=== PATIENT | male | born 1985 | race Caucasian/White ===

== ENCOUNTER 2017-01-08 21:33 | Inpatient (IN) | payer OTHER ==
[~2017-01-08] VITALS: Ht 170.2 cm; Wt 109.0 kg
[~2017-01-08 21:33] MED LIST: BUPR200T2 PO; CARB1CAP8 PO; CLON0.5T3 PO; DIPH25CA65 PO; GLC/500 PO; QUET1TAB20 PO
[2017-01-08 22:57] LABS: HEMATOCRIT 41.2 % (42-52); MEAN CELL VOLUME 93.2 fL (80-100); MEAN CORPUSCULAR HEMOGLOBIN 32.4 pg (25-34); MEAN CORPUSCULAR HGB CONC 34.7 g/dl (32-36); MEAN PLATELET VOLUME 9.6 fL (7.4-10.4); PLATELET COUNT 345 K/uL (130-400); RED BLOOD COUNT 4.42 M/uL (4.7-6.1); WHITE BLOOD COUNT 11.83 K/uL (4.8-10.8)
[2017-01-08 23:17] LABS: ALT/SGPT 54 U/L (12-78); AST/SGOT 38 U/L (15-37); BLOOD UREA NITROGEN 9 mg/dl (7-18); BUN/CREATININE RATIO 9.6 (10-20); CALCIUM 8.7 mg/dl (8.5-10.1); CARBON DIOXIDE 29 mmol/L (21-32); CHLORIDE 109 mmol/L (98-107); CREATININE 0.94 mg/dl (0.60-1.40); GLUCOSE 112 mg/dl (70-99); POTASSIUM 3.4 mmol/L (3.5-5.1); SODIUM 144 mmol/L (136-145)
[2017-01-08 23:28] LABS: ALKALINE PHOSPHATASE 80 U/L (45-117); THYROID STIMULATING HORMONE 0.314 uIu/ml (0.300-4.500)
--- NOTE | 2017-01-09 00:09 | EMERGENCY ROOM VISIT NOTE ---
History Report prepared by Morales: Angelica Ambrosio Under the Supervision of: Dr. Souleymane Esqueda M.D. First contact with patient: 22:06 Chief Complaint: MENTAL HEALTH EVALUATION Stated Complaint: MENTAL BREAKDOWN History of Present Illness The patient is a 31 year old male who presents to the Emergency Room for a mental health evaluation. The patient admits to having manic episodes for the past 10 days. The patient has a history of bipolar disorder and schizophrenia. He notes that he feels out of control and has been crying a lot. The patient states that he has been taking his medications everyday. He denies suicidal or homicidal ideations, recent fevers or illness. The patient does not have a counselor. He does have a psychiatrist that he saw about a month ago and he has an appointment scheduled soon. Per the patient's sister, the patient has been having a mental breakdown for the past 10 days. She states that the patient has been "up and down" lately with manic episodes. She notes he will be calm one minute and then all over the place the next. She does not think he is suicidal but he is depressed. She states that the patient has not been taking his medications correctly. She states that he does not use drugs or alcohol. This HPI is limited due to poor cooperation. Source of History: patient, sibling History Limited By: poor cooperation Onset: 10 days CLINICAL EDUCATION ACADEMIC COORDINATOR Position: other (global) Quality: other (mental health evaluation) Modifying Factors (Relieving): other (none) Associated Symptoms: No fevers Note: The patient denies suicidal or homicidal ideations. Review of Systems See HPI for pertinent positives & negatives. A total of 10 systems reviewed and were otherwise negative. Past Medical & Surgical Medical Problems: (1) Bipolar Disorder, Unspecified (2) Diab Malaika Wo Compl, Type Ii Or Unspec Type, Not Uncntrld Surgical Problems: (1) Hx of cholecystectomy Family History Diabetes mellitus Hypertension Kidney disease Kidney stones Social History Smoking Status: Current Every Day Smoker Smokeless Tobacco Use: No Marital Status: Housing Status: lives with family Occupation Status: disabled Current/Historical Medications Scheduled Bupropion (Wellbutrin Sr), 200 MG PO DAILY Carbamazepine (Carbatrol Er), 200 MG PO HS Clonazepam (Klonopin), 0.5 MG PO HS Diphenhydramine Hcl (Benadryl Allergy), 50 MG PO HS Metformin Hcl (Glucophage), 500 MG PO DAILY Quetiapine Fumarate (Quetiapine Fumarate), 400 MG PO HS Allergies Coded Allergies: No Known Allergies (Verified , 01/08/17) Physical Exam Vital Signs Date Time Temp Pulse Resp B/P Pulse Ox O2 Delivery O2 Flow Rate FiO2 01/08/17 21:35 37.1 92 20 146/95 96 Room Air Physical Exam Constitutional: Vital signs reviewed. Eyes: Pupils are equal round reactive to light. Conjunctiva are noninjected. ENT: Pharynx is clear without erythema or exudate. Mucous membranes are moist. Neck supple without meningeal signs. Respiratory: Clear to auscultation bilaterally. Breath sounds are equal bilaterally. Cardiovascular: Regular rate and rhythm. No rubs or gallops. GI: Soft, nondistended and nontender. Bowel sounds are present. Musculoskeletal: No peripheral edema. Integumentary: No cyanosis. Neurological: The patient is awake and alert. No focal deficits. Psychiatric: Depressed affect. Medical Decision & Procedures Laboratory Results 01/08/17 22:45 01/08/17 22:45 Test 01/08/17 22:45 01/09/17 00:00 Red Blood Count 4.42 M/uL (4.7-6.1) Mean Corpuscular Volume 93.2 fL (80-100) Mean Corpuscular Hemoglobin 32.4 pg (25-34) Mean Corpuscular Hemoglobin Concent 34.7 g/dl (32-36) RDW Standard Deviation 43.5 fL (36.4-46.3) RDW Coefficient of Variation 12.7 % (11.5-14.5) Mean Platelet Volume 9.6 fL (7.4-10.4) Anion Gap 6.0 mmol/L (3-11) Est Creatinine Clear Calc Drug Dose 137.2 ml/min Estimated GFR () 123.0 Estimated GFR (Non- 106.1 BUN/Creatinine Ratio 9.6 (10-20) Calcium Level 8.7 mg/dl (8.5-10.1) Total Bilirubin 0.4 mg/dl (0.2-1) Direct Bilirubin < 0.1 mg/dl (0-0.2) Aspartate Amino Transf (AST/SGOT) 38 U/L (15-37) Alanine Aminotransferase (ALT/SGPT) 54 U/L (12-78) Alkaline Phosphatase 80 U/L (45-117) Total Protein 7.1 gm/dl (6.4-8.2) Albumin 3.9 gm/dl (3.4-5.0) Thyroid Stimulating Hormone (TSH) 0.314 uIu/ml (0.300-4.500) Salicylates Level 4.3 mg/dl (2.8-20) Acetaminophen Level 2 ug/ml (10-30) Carbamazepine (Tegretol) Level 3.1 mcg/ml (4-12) Ethyl Alcohol mg/dL < 3.0 mg/dl (0-3) Urine Opiates Screen NEG (NEG) Urine Methadone, Qualitative NEG (NEG) Urine Barbiturates NEG (NEG) Urine Phencyclidine (PCP) Level NEG (NEG) Ur Amphetamine/Methamphetamine NEG (NEG) MDMA (Ecstasy) Screen POS (NEG) Urine Benzodiazepines Screen NEG (NEG) Urine Cocaine Metabolite NEG (NEG) Urine Marijuana (THC) POS (NEG) Laboratory results as reviewed by me. ED Course 2209: The patient was evaluated in room A5. A complete history and physical exam was performed. 0139: The patient signed himself voluntarily to inpatient treatment. 0141: The patient will receive further inpatient treatment at [facility]. Medical Decision This is a 31-year-old male who presents for mental health evaluation. I did perform a limited focused review of portions of the patient's old chart on the electronic medical record. The patient has had no recent pertinent visits to this hospital. Medication Reconciliation: I attest that I have personally reviewed the patient' s current medication list. Blood Pressure Screening: Patient was found to have an elevated blood pressure and was referred to their primary doctor for recheck and further treatment. I did evaluate the patient as noted above. The patient is presenting with worsening of his bipolar disease. He also has a history of schizophrenia. He states he is taking his medications but his sister does not think he is. He is a difficult historian as he selectively answers questions. I did order and review the patient's blood work as noted in the electronic medical record. Urine tox screen is as above. 3 S. did evaluate the patient. He agreed to voluntary admission. He was admitted to [facility] for further psychiatric care. Impression Primary Impression: Thought disorder Additional Impression: Bipolar disorder Scribe Attestation The scribe's documentation has been prepared under my direct and personally reviewed by me in its entirety. I confirm that the note above accurately reflects all work, treatment, procedures, and medical decision making performed by me. Departure Information Dispostion Mental Health Acute Care Referrals Omi Noguera D.O. (PCP) Problem Qualifiers Additional Impression: Bipolar disorder Active/Remission status: currently active Current bipolar episode type: mixed Current episode severity: unspecified Qualified Codes: F31.60 - Bipolar disorder, current episode mixed, unspecified
[2017-01-09 01:15] LABS: BENZODIAZEPINE, URINE NEG (NEG); COCAINE,URINE NEG (NEG); PHENCYCLIDINE, URINE NEG (NEG)
[2017-01-09] MEDS ORDERED: NURSING VERBAL MED ORDER ONE ×3 (01:30→11:15)
[2017-01-09 01:56] VITALS: BP 146/89; PULSE 66; TEMP 37.1; BMI 38.3
[2017-01-09 02:31] VITALS: O2SAT 96
[2017-01-09] MEDS ORDERED: ALUMINUM/MAGNESIUM SUSP 30 ML UDC PO PRN (03:00)
[2017-01-09] MEDS ORDERED: SODIUM CHLORIDE 0.65% NA SOLN 45 ML (OCEAN) PRN (03:00)
[2017-01-09] MEDS ORDERED: BISMUTH SUBSALICYLATE PER ML OMNICELL CHARGE PO PRN (03:00)
[2017-01-09] MEDS ORDERED: hydrOXYzine HCL 25 MG TAB PO PRN (03:00)
[2017-01-09] MEDS ORDERED: MAGNESIUM HYDROXIDE SUSP 30 ML UDC PO PRN (03:00)
[2017-01-09 07:05] VITALS: BP 138/93; PULSE 76; TEMP 37
[2017-01-09] MEDS: NICOTINE 21 MG/24 HR TDSY EXT SCH (09:00)
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
[2017-01-09] MEDS: HALOPERIDOL 5 MG TAB PO PRN (10:46)
[2017-01-09] MEDS ORDERED: HALOPERIDOL LACTATE 5 MG/ML 1 ML VIAL IM PRN (11:00)
[2017-01-09] MEDS: QUETIAPINE FUMARATE 25 MG TAB PO PRN (11:05)
[2017-01-09] MEDS: CLONAZEPAM 0.5 MG TAB PO PRN (11:05)
[2017-01-09] MEDS: BuPROPion SR 100 MG TABCR PO SCH (11:30)
[2017-01-09] MEDS ORDERED: HALOPERIDOL 5 MG TAB PO ONE (11:30)
[2017-01-09] MEDS ORDERED: METFORMIN HCL 500 MG TAB PO SCH (12:30)
[2017-01-09] MEDS: QUETIAPINE FUMARATE 200 MG TAB PO SCH (21:35)
[2017-01-09] MEDS ORDERED: CARBAMAZEPINE 100 MG TABCR PO SCH (22:00)
[2017-01-10] MEDS: CLONAZEPAM 0.5 MG TAB PO PRN (02:57)
[2017-01-10] MEDS: hydrOXYzine HCL 25 MG TAB PO PRN (02:57)
[2017-01-10] MEDS: HALOPERIDOL 5 MG TAB PO PRN (02:57)
[2017-01-10 03:30] VITALS: BP 134/92; PULSE 86
[2017-01-10 06:23] VITALS: BP 123/80; PULSE 74; TEMP 36
[2017-01-10 08:01] LABS: CHOLESTEROL/HDL RATIO 2.4
[2017-01-10] MEDS: NICOTINE 21 MG/24 HR TDSY EXT SCH (09:52)
[2017-01-10] MEDS: BuPROPion SR 100 MG TABCR PO SCH (09:52)
[2017-01-10] MEDS ORDERED: METF-383 PO (09:59)
[2017-01-10] MEDS ORDERED: CARB200T PO (09:59)
[2017-01-10] MEDS ORDERED: ROPI0.5T15 PO (10:01)
[2017-01-10 10:42] VITALS: BP_SYST 144; BP_SYST 156; BP_DIAS 102; BP_DIAS 98; PULSE 103
--- NOTE | 2017-01-10 12:42 | Psychiatric Progress Notes ---
Progress Note Date of Service January 10, 2017. Interval History 31 yo male with schizoaffective disorder, admitted voluntarily on 01/09 with acute psychosis in the setting of not taking his meds. Chief Complaint "I guess I was psychotic.". Subjective Patient was seen & assessed interval progress reviewed with Treatment Team. The patient says that he is doing much better today. He feels safe here and is thankful for the help. 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 He admits that he has not been taking his meds, perhaps at all, for an unspecified period of time, because he was not where his meds were. He says that he is able to ask his girlfriend for help monitoring this. He denies aud/vis hallucinations and denies feeling paranoid or unsafe here. 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 At one point nursing heard a noise and found him on the floor in his room. Today he says that he hit his rt elbow, but denies hitting his head. No orthostasis noted in today's BP's. At the time I retrieved him for the interview he was found in the hallway, with his arms loaded with random object like a cup of water, a blanket, some clothes, and wearing only one shoe. When asked about this he said "I don't know." Review of Systems Constitutional: No chills, No fatigue, No fever, No problem reported, No sweats , No weakness, No weight loss ENT: No dental problems, No hearing loss, No nasal symptoms, No problem reported, No sore throat, No tinnitus, No trouble swallowing, No unusual epistaxis Respiratory: No cough, No dyspnea at rest, No dyspnea on exertion, No hemoptysis, No problem reported, No shortness of breath, No sputum, No wheezing Cardiovascular: No PND, No chest pain, No claudication, No edema, No orthopnea , No palpitations, No problem reported Abdomen: No GI bleeding, No constipation, No diarrhea, No nausea, No pain, No problem reported, No vomiting Neurologic: No balance problems, No memory loss, No numbness/tingling, No paralysis, No problem reported, No vertigo, No weakness Psychiatric: + problem reported (Disorganized thoughts) Integumentary: + problem reported (Mild abrasion to rt elbow) Sleep Information Total Hours of Sleep: 2.50 Meal Information Percent of Breakfast Consumed: 10 Percent of Lunch Consumed: 100 Percent of Dinner Consumed: 100 Mental Status Exam During interview pt is: alert and oriented, cooperative Appearance: appropriately dressed, disheveled, other (holding pillow in his hands tightly ) Eye contact is: fair, poor Motor behavior is: steady gait & station, no abnormal motor movements Speech: normal in rate, rhythm & volume Affect: blunted Mood is: other ("better") Thought process: other (disorganized, talking in metafore) Thought content: paranoid, ideas of reference, hopelessness, other (" lied about her first love...our love") Suicidal thought are: denied Homicidal thoughts are: denied Hallucinations: denies auditory, denies visual, other (appearing to respond to internal stimuli) Cognition: other (world backwards correct, concentration impaired grossly) Intelligence estimated to be: average Insight: impaired Judgement: impaired Impression Difficult day yesterday with paranoia, psychosis. We have restarted him on his OP regimen since he had not taken meds for a while. He is already starting to consolidate, and is much more reality based. Will order daily BSG for his DM. Meds have been clarifed with his pharmacy and so will correct. Will need family meeting. Will continue MNPR room for another 24 hrs due to disorganized thoughts and behaviors, but may be able to DC tomorrow. Plan (1) Schizoaffective disorder, bipolar type - q15 minute observation checks -resume outpatient psychiatric medications of Tegretol xr 200mg hs, Seroquel 400mg hs, and wellbutrin sr 200mg am, -convert klonopin to 0.5mg prn bid anxiety - add Seroquel 50mg tid prn psychosis/agitation -fasting labs ordered for 01/10 for glucose and lipid -obtain collateral from family, - attempt to arrange family meeting with as appropriate -Group and miluei therapy and 1:1 interactions with staff -Coordinate with outpt providers and arrange aftercare including psychotherapy referral 01/10 - FLP WNL with exception of triglycerides 196 and glucose 103. Will need followed as an OP - Arrange family meeting (2) Diabetes - continue outpatient Metformin reported at 500mg once a day, - monitor blood sugar 01/10 - Correct metformin to 850 mg. BIDM - Check BSG daily - monitor BP and clarify if any past/current h/o HTN and address as appropriate Visit Code E&M Code: 38388 Inventory Assets Strengths: seeking treatment, "can look people in the eye and tell when people are being honest" Needs: acute stabilization of psychiatric condition, psychotherapy referral , resumption and/or adjustment of medication Risk Factors Assessment Male: Yes : Yes /single/: No Higher / Fall in social status: No Access to guns: No Health problems: Yes Mental Health Diagnoses: Yes Previous attempt: No Family history of suicide: No Previous psychiatric stay: Yes Hopelessness: Yes Smoker: Yes Protective Factors Assessment : Yes Responsible for young children: Yes Employed: Yes Data Vital Signs Last 24 Hrs: Date Time Temp Pulse Resp B/P Pulse Ox O2 Delivery O2 Flow Rate FiO2 01/10/17 10:42 103 156/102 144/98 01/10/17 06:23 36.0 74 18 123/80 01/10/17 03:30 86 16 134/92 Meds Administered Last 24 Hrs: Meds Administered (Past 24Hrs) Medications (Trade) Dose Ordered Sig/Henry Route Start Time Stop Time Status Last Admin Dose Admin Hydroxyzine HCl (Vistaril Tab) 50 mg HSZ PRN PO 01/09/17 03:00 02/08/17 02:59 01/10/17 02:57 50 MG Nicotine (Nicoderm Cq 21MG Patch) 1 patch QAM EXT 01/09/17 09:00 02/08/17 08:59 01/10/17 09:52 1 PATCH Miscellaneous (Remove Nicoderm Patch) 1 ea QAM N/A 01/10/17 09:00 02/09/17 08:59 01/10/17 09:00 1 EA Haloperidol (Haldol Tab) 5 mg Q4H PRN PO 01/09/17 09:30 02/08/17 09:29 01/10/17 02:57 5 MG Bupropion HCl (Wellbutrin-Sr Tab) 200 mg DAILY PO 01/09/17 11:30 02/08/17 11:29 01/10/17 09:52 200 MG Carbamazepine (Tegretol-Xr) 100 mg HS PO 01/09/17 22:00 02/08/17 21:59 01/09/17 21:34 100 MG Clonazepam (Klonopin Tab) 0.5 mg BID PRN PO 01/09/17 10:15 02/08/17 10:14 01/10/17 02:57 0.5 MG Metformin HCl (Glucophage Tab) 500 mg QDL PO 01/09/17 12:30 02/08/17 12:29 01/09/17 12:46 500 MG Quetiapine Fumarate (seroQUEL TAB) 400 mg HS PO 01/09/17 22:00 02/08/17 21:59 01/09/17 21:35 400 MG Quetiapine Fumarate (seroQUEL TAB) 50 mg TID PRN PO 01/09/17 10:15 02/08/17 10:14 01/09/17 11:05 50 MG Haloperidol (Haldol Tab) 5 mg NOW ONCE PO 01/09/17 11:30 01/09/17 11:31 DC 01/09/17 11:16 5 MG Lab Results Last 24 Hrs: Last 24 Hours Test 01/10/17 07:20 Fasting Glucose 103 mg/dl Triglycerides Level 196 mg/dl Cholesterol Level 124 mg/dl HDL Cholesterol 51 mg/dl LDL Cholesterol, Calculated 34 mg/dl VLDL Cholesterol, Calculated 39 mg/dl Cholesterol/HDL Ratio 2.4 Problem Qualifiers (1) Diabetes: Diabetes mellitus type: type 2 Diabetes mellitus complication status: without complication Diabetes mellitus detention insulin use: without detention use Qualified Codes: E11.9 - Type 2 diabetes mellitus without complications
[2017-01-10] MEDS: METFORMIN HCL 850 MG TAB PO SCH (17:56)
[2017-01-10] MEDS: ROPINIROLE HCL 0.25 MG TAB PO SCH (21:28)
[2017-01-10] MEDS: QUETIAPINE FUMARATE 200 MG TAB PO SCH (21:28)
[2017-01-10] MEDS ORDERED: CARBAMAZEPINE 200 MG TABCR PO SCH (22:00)
[2017-01-10 22:52] VITALS: BP_SYST 130; BP_SYST 142; BP_SYST 148; BP_DIAS 90; BP_DIAS 92; BP_DIAS 96; PULSE 142; PULSE 144
[2017-01-10] MEDS ORDERED: NURSING VERBAL MED ORDER ONE (23:00)
[2017-01-10 23:13] VITALS: PULSE 139
[2017-01-10] MEDS ORDERED: PROPRANOLOL HCL 20 MG TAB PO ONE (23:15)
[2017-01-11] MEDS: hydrOXYzine HCL 25 MG TAB PO PRN (02:30)
[2017-01-11 06:48] VITALS: BP_SYST 108; BP_SYST 113; BP_DIAS 86; BP_DIAS 92; PULSE 78; PULSE 82; TEMP 36.9
[2017-01-11] MEDS: NICOTINE 21 MG/24 HR TDSY EXT SCH (09:28)
[2017-01-11] MEDS: METFORMIN HCL 850 MG TAB PO SCH ×2 (09:29→17:59)
[2017-01-11] MEDS: BuPROPion SR 100 MG TABCR PO SCH (09:29)
--- NOTE | 2017-01-11 10:22 | Psychiatric Progress Notes ---
Progress Note Date of Service January 11, 2017. Interval History 31 yo male with schizoaffective disorder, admitted voluntarily on 01/09 with acute psychosis in the setting of not taking his meds. Chief Complaint "Good.". Subjective Patient was seen & assessed interval progress reviewed with Treatment Team. Nursing reports that the patient had a difficult evening, was heard crying in his room saying that he thought he saw his children. He also had some odd behaviors in the day area, falling to the floor on his knees saying that he was trying to humble himself. Today he says little about this, only that he was emotional after thinking about his family. Today he denies aud/vis hallucinations. He agrees that he had a difficult evening and is willing to have an additional dose of medicine in the med afternoon. He reports good sleep and appetite and denies side effects to meds. Review of Systems Constitutional: No chills, No fatigue, No fever, No problem reported, No sweats , No weakness, No weight loss ENT: No dental problems, No hearing loss, No nasal symptoms, No problem reported, No sore throat, No tinnitus, No trouble swallowing, No unusual epistaxis Respiratory: No cough, No dyspnea at rest, No dyspnea on exertion, No hemoptysis, No problem reported, No shortness of breath, No sputum, No wheezing Cardiovascular: No PND, No chest pain, No claudication, No edema, No orthopnea , No palpitations, No problem reported Abdomen: No GI bleeding, No constipation, No diarrhea, No nausea, No pain, No problem reported, No vomiting Musculoskeletal: No calf pain, No joint pain, No muscle pain, No problem reported, No swelling Neurologic: No balance problems, No memory loss, No numbness/tingling, No paralysis, No problem reported, No vertigo, No weakness Psychiatric: + problem reported (felt "emotional" with possible visual hallucination) Integumentary: No bleeding, No color change, No itch, No new/changing skin lesions, No problem reported, No rash Sleep Information Total Hours of Sleep: 3.00 Meal Information Percent of Breakfast Consumed: 100 Percent of Lunch Consumed: 100 Percent of Dinner Consumed: 75 Mental Status Exam During interview pt is: alert and oriented, cooperative Appearance: appropriately dressed, disheveled, other (holding pillow in his hands tightly ) Eye contact is: good (but staring) Motor behavior is: steady gait & station, no abnormal motor movements Speech: normal in rate, rhythm & volume Affect: blunted Mood is: other ("good") Thought process: goal directed (but at one point was staring without answering the question as if responding to internal stimuli) Thought content: reality based without delusions Suicidal thought are: denied Homicidal thoughts are: denied Hallucinations: denies auditory, denies visual, other (appearing to respond to internal stimuli) Cognition: other (world backwards correct, concentration impaired grossly) Intelligence estimated to be: average Insight: impaired Judgement: impaired Impression Some progress in that he was improved on days yesterday, but deteriorated on evenings. Will add Seroquel 100 mg. at 1400 to target the evening decompensation. Still need a family meeting with his girlfriend with whom he lives. had an episode of tachycardia last evening, but HR WNL this AM. Had a one time dose on propranolol. Tachy may have been influenced by his distress. Will monitor Plan (1) Schizoaffective disorder, bipolar type - q15 minute observation checks -resume outpatient psychiatric medications of Tegretol xr 200mg hs, Seroquel 400mg hs, and wellbutrin sr 200mg am, -convert klonopin to 0.5mg prn bid anxiety - add Seroquel 50mg tid prn psychosis/agitation -fasting labs ordered for 01/10 for glucose and lipid -obtain collateral from family, - attempt to arrange family meeting with as appropriate -Group and miluei therapy and 1:1 interactions with staff -Coordinate with outpt providers and arrange aftercare including psychotherapy referral 01/10 - FLP WNL with exception of triglycerides 196 and glucose 103. Will need followed as an OP - Arrange family meeting 01/11 - Add seroquel 100 mg. 1400 - Arrange family meeting (2) Diabetes - continue outpatient Metformin reported at 500mg once a day, - monitor blood sugar 01/10 - Correct metformin to 850 mg. BIDM - Check BSG daily - monitor BP and clarify if any past/current h/o HTN and address as appropriate Discharge / Aftercare Planning Primary Care Physician: Name: Dr Mustafa Therapist: Name: jennie Electrical Controls Engineer: Name: jennie Visit Code E&M Code: 36174 Inventory Assets Strengths: seeking treatment, "can look people in the eye and tell when people are being honest" Needs: acute stabilization of psychiatric condition, psychotherapy referral , resumption and/or adjustment of medication Risk Factors Assessment Male: Yes : Yes /single/: No Higher / Fall in social status: No Access to guns: No Health problems: Yes Mental Health Diagnoses: Yes Previous attempt: No Family history of suicide: No Previous psychiatric stay: Yes Hopelessness: Yes Smoker: Yes Protective Factors Assessment : Yes Responsible for young children: Yes Employed: Yes Data Vital Signs Last 24 Hrs: Date Time Temp Pulse Resp B/P Pulse Ox O2 Delivery O2 Flow Rate FiO2 01/11/17 06:48 36.9 82 18 113/86 78 108/92 01/10/17 23:13 139 01/10/17 22:52 142 130/90 144 148/92 142 142/96 01/10/17 10:42 103 156/102 144/98 Meds Administered Last 24 Hrs: Meds Administered (Past 24Hrs) Medications (Trade) Dose Ordered Sig/Henry Route Start Time Stop Time Status Last Admin Dose Admin Miscellaneous (Remove Nicoderm Patch) 1 ea QAM N/A 01/10/17 09:00 02/09/17 08:59 01/10/17 09:00 1 EA Bupropion HCl (Wellbutrin-Sr Tab) 200 mg DAILY PO 01/09/17 11:30 02/08/17 11:29 01/11/17 09:29 200 MG Carbamazepine (Tegretol-Xr) 100 mg HS PO 01/09/17 22:00 01/10/17 12:22 DC 01/09/17 21:34 100 MG Clonazepam (Klonopin Tab) 0.5 mg BID PRN PO 01/09/17 10:15 02/08/17 10:14 01/10/17 02:57 0.5 MG Metformin HCl (Glucophage Tab) 500 mg QDL PO 01/09/17 12:30 01/10/17 12:22 DC 01/09/17 12:46 500 MG Quetiapine Fumarate (seroQUEL TAB) 400 mg HS PO 01/09/17 22:00 02/08/17 21:59 01/10/17 21:28 400 MG Quetiapine Fumarate (seroQUEL TAB) 50 mg TID PRN PO 01/09/17 10:15 02/08/17 10:14 01/09/17 11:05 50 MG Haloperidol (Haldol Tab) 5 mg NOW ONCE PO 01/09/17 11:30 01/09/17 11:31 DC 01/09/17 11:16 5 MG Metformin HCl (Glucophage Tab) 850 mg BIDM PO 01/10/17 17:45 02/09/17 17:44 01/11/17 09:29 850 MG Carbamazepine (Tegretol-Xr (Do Not Crush)) 200 mg HS PO 01/10/17 22:00 01/11/17 08:23 DC 01/10/17 21:28 200 MG Ropinirole HCl (Requip Tab) 0.5 mg HS PO 01/10/17 22:00 02/09/17 21:59 01/10/17 21:28 0.5 MG Propranolol HCl (Inderal Tab) 20 mg TODAY@2315 ONCE PO 01/10/17 23:15 01/10/17 23:16 DC 01/10/17 23:14 20 MG Lab Results Last 24 Hrs: Last 24 Hours Test 01/11/17 08:12 Bedside Glucose 135 mg/dl Problem Qualifiers (1) Diabetes: Diabetes mellitus type: type 2 Diabetes mellitus complication status: without complication Diabetes mellitus senior living insulin use: without senior living use Qualified Codes: E11.9 - Type 2 diabetes mellitus without complications
[2017-01-11] MEDS: HALOPERIDOL 5 MG TAB PO PRN (13:35)
[2017-01-11] MEDS: CLONAZEPAM 0.5 MG TAB PO PRN (13:35)
[2017-01-11] MEDS: ROPINIROLE HCL 0.25 MG TAB PO SCH (21:23)
[2017-01-11] MEDS: QUETIAPINE FUMARATE 200 MG TAB PO SCH (21:23)
[2017-01-11] MEDS: CARBAMAZEPINE 200 MG TAB PO SCH (21:23)
[2017-01-11 21:49] VITALS: BP_SYST 131; BP_SYST 136; BP_DIAS 90; BP_DIAS 92; PULSE 103; PULSE 96
[2017-01-12 06:38] VITALS: BP_SYST 124; BP_SYST 128; BP_SYST 134; BP_DIAS 88; BP_DIAS 89; BP_DIAS 92; PULSE 102; PULSE 108; PULSE 96; TEMP 36.8
--- NOTE | 2017-01-12 08:23 | Psychiatric Progress Notes ---
Progress Note Date of Service Jan 12, 2017. Interval History 31 yo male with schizoaffective disorder, admitted voluntarily on 01/09 with acute psychosis in the setting of not taking his meds. Chief Complaint "Fantastic". Subjective Patient was seen & assessed interval progress reviewed with nursing. Staff report he continues to isolate, is withdrawn, refusing a family meeting, is suspicious of staff, and appears to be responding to internal stimuli, talking and laughing to himself. He appears thought blocked, guarded, and frequently stares. He is not sleeping well, 3-4 hours in the past couple nights. He is taking medications willingly. He was overheard talking in the day room, stating that he had been here for 2 days and "I'm not doing it another day. I don't know who I can trust." He attends groups, but sometimes leaves early if overstimulated. Today, he was seen in his room, along with his sister, who is visiting. He declined an offer to meet with him individually, stating she could remain during the interview. He states that he is "fantastic," because his sister is here, but that prior to that, he was "like crap, felt like my brain was getting picked." When asked to explain this further, he says "I'd say a story and they already say it." He cannot further clarify this, and at times just stared when asked questions without responding. He states that he is having difficulty focusing his thoughts, and is very distracted and bothered by noises, saying "like that!" in response to a muffled sound from outside the unit. He states he cannot tolerate any kind of noise or stimulation, so frequently retreats to his room, as he likes to be alone where it is quiet. He denies that he is experiencing hallucinations or feels paranoid, but appears paranoid, thought blocked, and responding to internal stimuli, with eyes darting around the room. He denies SI and HI. He admits to racing thoughts and anxiety, which he attributes to being in the hospital. Sleep has been restless, and appetite good. He denies side effects to medications. He states that he came here because "wanted to get a break, reevaluate, recenter myself." He refused to answer questions about stresses at home, directing me to ask his sister. His sister said she knows that he and his girlfriend "fight a lot, about little things," and she is concerned that he is not yet ready to go back to work. She has already contacted his employer and informed them he will not be in this week, but he thinks he is fine and ready to return to work now. He states that his girlfriend has not visited at all during his time here, due to her busy work schedule. It was advised that at the very least, she talked to him on the phone to help us determine how close he is to baseline, and that a family meeting be scheduled, even if it has to be by phone. He voiced agreement. Sleep Information Total Hours of Sleep: 3.75 Meal Information Percent of Breakfast Consumed: 100 Percent of Lunch Consumed: 100 Percent of Dinner Consumed: 100 Mental Status Exam During interview pt is: alert and oriented, cooperative Appearance: appropriately dressed, disheveled, other Eye contact is: good (staring ) Motor behavior is: steady gait & station, psychomotor agitation (restlessness, walking around the room from chair to bed to standing) Speech: other (minimal, monotone) Affect: flat (suspicious), irritable, other (incongruent with stated mood) Mood is: other ("fantastic" - because sister here, but prior to that "like crap ") Thought process: blocking (doesn't respond to some questions), other (short answers, at times does not make sense) Thought content: paranoid (suspicious of staff) Suicidal thought are: denied Homicidal thoughts are: denied Hallucinations: denies auditory, denies visual, other (appearing to be respond to internal stimuli) Cognition: other (impaired) Intelligence estimated to be: average Insight: impaired Judgement: impaired Impression Some progress since admission, as calmer, but remains psychotic, thought blocked , appears to be responding to internal stimuli. Cannot tolerate any noise or stimulation, so not actively participating in programming and spending a lot of time in room. Quetiapine has been increased with addition of 100 mg. at 1400 to target evening decompensation. Still need a family meeting with his girlfriend with whom he lives. She has not even visited yet, and it will be important to assess his interactions with her and her thoughts on how close he is to baseline/ability to function at home in this state. He feels he is at baseline, but this is questionable. Continues to have episodes of tachycardia and requires ongoing hospitalization for monitoring of psychosis and HTN. Plan (1) Schizoaffective disorder, bipolar type - q15 minute observation checks - resume outpatient psychiatric medications of Tegretol XR 200mg hs, Seroquel 400mg hs, and wellbutrin sr 200mg am, - convert klonopin to 0.5mg prn bid anxiety - add Seroquel 50mg tid prn psychosis/agitation - fasting labs ordered for 01/10 for glucose and lipid - obtain collateral from family, - attempt to arrange family meeting with as appropriate - Group and milieu therapy and 1:1 interactions with staff - Coordinate with outpt providers and arrange aftercare including psychotherapy referral 01/10 - FLP WNL with exception of triglycerides 196 and glucose 103. Will need followed as an OP - Arrange family meeting 01/11 - Add seroquel 100 mg. 1400 - Arrange family meeting 01/12 - Recommend girlfriend visited and spend some time with him so that she can help us assess for improvement and how close he is to baseline. They would also benefit from a family meeting. - Continue quetiapine. He has only received one 50 mg as needed dose on . - His sister stated she does not think he will be ready to go back to work at the time of discharge, but he is stating he wants to return as soon as possible. This will require further assessment at the time of discharge, and he will need a return to work note. - Follow-up with Dr. Dean on 01/24/17. (2) Diabetes - continue outpatient Metformin reported at 500mg once a day, - monitor blood sugar 01/10 - Correct metformin to 850 mg. BIDM - Check BSG daily - monitor BP and clarify if any past/current h/o HTN and address as appropriate Discharge / Aftercare Planning Primary Care Physician: Name: Dr Mustafa Psychiatrist: Name: [facility] - Dr Foote Phone Number: [phone] Therapist: Name: jennie Stapler Coil Unit: Name: jennie Inventory Assets Strengths: seeking treatment, "can look people in the eye and tell when people are being honest" Needs: acute stabilization of psychiatric condition, psychotherapy referral , resumption and/or adjustment of medication Risk Factors Assessment Male: Yes : Yes /single/: No Higher / Fall in social status: No Access to guns: No Health problems: Yes Mental Health Diagnoses: Yes Previous attempt: No Family history of suicide: No Previous psychiatric stay: Yes Hopelessness: Yes Smoker: Yes Protective Factors Assessment : Yes Responsible for young children: Yes Employed: Yes Data Vital Signs Last 24 Hrs: Date Time Temp Pulse Resp B/P (MAP) Pulse Ox O2 Delivery O2 Flow Rate FiO2 01/12/17 06:38 36.8 102 18 134/88 108 128/92 96 124/89 01/11/17 21:49 96 136/92 103 131/90 Meds Administered Last 24 Hrs: Meds Administered (Past 24Hrs) Medications (Trade) Dose Ordered Sig/Henry Route Start Time Stop Time Status Last Admin Dose Admin Miscellaneous (Remove Nicoderm Patch) 1 ea QAM N/A 01/10/17 09:00 02/09/17 08:59 01/10/17 09:00 1 EA Metformin HCl (Glucophage Tab) 850 mg BIDM PO 01/10/17 17:45 02/09/17 17:44 01/11/17 17:59 850 MG Carbamazepine (Tegretol-Xr (Do Not Crush)) 200 mg HS PO 01/10/17 22:00 01/11/17 08:23 DC 01/10/17 21:28 200 MG Ropinirole HCl (Requip Tab) 0.5 mg HS PO 01/10/17 22:00 02/09/17 21:59 01/11/17 21:23 0.5 MG Propranolol HCl (Inderal Tab) 20 mg TODAY@2315 ONCE PO 01/10/17 23:15 01/10/17 23:16 DC 01/10/17 23:14 20 MG Carbamazepine (Tegretol Tab) 200 mg HS PO 01/11/17 22:00 02/10/17 21:59 01/11/17 21:23 200 MG Lab Results Last 24 Hrs: Last 24 Hours Test 01/12/17 07:50 Bedside Glucose 181 mg/dl Problem Qualifiers (1) Diabetes: Diabetes mellitus type: type 2 Diabetes mellitus complication status: without complication Diabetes mellitus mcc insulin use: without intermediate manager use Qualified Codes: E11.9 - Type 2 diabetes mellitus without complications
[2017-01-12] MEDS: METFORMIN HCL 850 MG TAB PO SCH ×2 (09:12→17:57)
[2017-01-12] MEDS: BuPROPion SR 100 MG TABCR PO SCH (09:12)
[2017-01-12] MEDS: NICOTINE 21 MG/24 HR TDSY EXT SCH (09:13)
[2017-01-12] MEDS: ROPINIROLE HCL 0.25 MG TAB PO SCH (21:22)
[2017-01-12] MEDS: CARBAMAZEPINE 200 MG TAB PO SCH (21:23)
[2017-01-12] MEDS: QUETIAPINE FUMARATE 200 MG TAB PO SCH (21:23)
[2017-01-13] MEDS: BuPROPion SR 100 MG TABCR PO SCH (07:25)
[2017-01-13] MEDS: HALOPERIDOL 5 MG TAB PO PRN ×2 (07:25→19:58)
[2017-01-13 08:17] VITALS: BP_SYST 153; BP_SYST 160; BP_SYST 168; BP_DIAS 107; BP_DIAS 118; PULSE 102; PULSE 106; PULSE 95; TEMP 36.9
[2017-01-13] MEDS: METFORMIN HCL 850 MG TAB PO SCH ×2 (09:37→17:30)
[2017-01-13] MEDS: NICOTINE 21 MG/24 HR TDSY EXT SCH (09:37)
[2017-01-13] MEDS ORDERED: HALOPERIDOL 5 MG TAB ONE (09:53)
[2017-01-13] MEDS ORDERED: NURSING VERBAL MED ORDER ONE (10:00)
[2017-01-13] MEDS: CLONAZEPAM 0.5 MG TAB PO PRN ×2 (10:05→19:58)
--- NOTE | 2017-01-13 13:13 | Psychiatric Progress Notes ---
Progress Note Date of Service Jan 13, 2017. Interval History 31 yo male with schizoaffective disorder, admitted voluntarily on 01/09 with acute psychosis in the setting of not taking his meds. Chief Complaint "I'm too happy right now". Subjective Patient was seen & assessed interval progress reviewed with Treatment Team. Some decompensation yesterday, outbursts of sobbing with no clear provocation, covering his face with hoodie in groups when seemingly overstimulated, sitting by door yesterday pm on floor/rocking (not attempting to elope). He has had to be redirected for being a peer's room. Doesn't accept prns but Haldol is helpful when he will take it. He has been observed at times spitting his meds into the sink. Disorganized behaviors include meaningless reorganization of his room, making repetitive statements like "facts on facts on facts" and even putting stickers on his face. Staff feel it appears as if responding to internal stimuli. Will stare and appear paranoid in their interactions. Review of Systems Psych: denies symptoms other than stated above Constitutional: denied Cardiovascular: denied GI: denied Neurologic: denied Remainder of 10 body systems also reviewed and denied other than noted above. Sleep Information Total Hours of Sleep: 2.75 Meal Information Percent of Breakfast Consumed: 100 Percent of Lunch Consumed: 70 Percent of Dinner Consumed: 100 Mental Status Exam During interview pt is: alert and oriented, cooperative Appearance: appropriately dressed Eye contact is: poor Motor behavior is: steady gait & station, psychomotor agitation (restlessness, walking around the room repetitively organizing his objects. ) Speech: other (minimal, monotone) Affect: elated Mood is: other (expansive) Thought process: blocking (doesn't respond to some questions), flight of ideas Thought content: paranoid Suicidal thought are: denied Homicidal thoughts are: denied Hallucinations: denies auditory, denies visual Cognition: other (impaired) Intelligence estimated to be: average Insight: impaired Judgement: impaired Impression Some progress since admission, as calmer, but remains psychotic, thought blocked , appears to be responding to internal stimuli. Cannot tolerate any noise or stimulation, so not actively participating in programming and spending a lot of time in room. Quetiapine has been increased with addition of 100 mg. at 1400 to target evening decompensation. Still need a family meeting with his girlfriend with whom he lives. Continues to have episodes of tachycardia and requires ongoing hospitalization for monitoring of psychosis and HTN. Plan (1) Schizoaffective disorder, bipolar type - q15 minute observation checks - resume outpatient psychiatric medications of Tegretol XR 200mg hs, Seroquel 400mg hs, and wellbutrin sr 200mg am, - convert klonopin to 0.5mg prn bid anxiety - add Seroquel 50mg tid prn psychosis/agitation - fasting labs ordered for 01/10 for glucose and lipid - obtain collateral from family, - attempt to arrange family meeting with as appropriate - Group and milieu therapy and 1:1 interactions with staff - Coordinate with outpt providers and arrange aftercare including psychotherapy referral 01/10 - FLP WNL with exception of triglycerides 196 and glucose 103. Will need followed as an OP - Arrange family meeting 01/11 - Add seroquel 100 mg. 1400 - Arrange family meeting 01/12 - Recommend girlfriend visited and spend some time with him so that she can help us assess for improvement and how close he is to baseline. They would also benefit from a family meeting. - Continue quetiapine. He has only received one 50 mg as needed dose on . - His sister stated she does not think he will be ready to go back to work at the time of discharge, but he is stating he wants to return as soon as possible. This will require further assessment at the time of discharge, and he will need a return to work note. - Follow-up with Dr. Dean on 01/24/17. / -as patient not very accepting of prns, will add Haldol standing order BID for additional coverage at least until he is therapeutic on Tegretol. Appeared hypomanic in my interactions with him today. Can have Tegretol level in am with repeat CBC and lytes. If remains this labile may need to hold Wellbutrin until more stable. Could titrate Seroquel further, I'm unsure if related to his tachy--he is quite active due to hypomania. Will continue to monitor for evidence of withdrawal in differential--currently doesn't appear to have sweating, tremor, etc. (2) Diabetes - continue outpatient Metformin reported at 500mg once a day, - monitor blood sugar 01/10 - Correct metformin to 850 mg. BIDM - Check BSG daily - monitor BP and clarify if any past/current h/o HTN and address as appropriate Discharge / Aftercare Planning Primary Care Physician: Name: Dr Mustafa Psychiatrist: Name: [facility] - Dr Foote Phone Number: [phone] Date of Appointment: Jan 24, 2017 Time of Appointment: 930 Therapist: Name: jennie Big Data Lead: Name: jennie Visit Code E&M Code: 31466 Inventory Assets Strengths: seeking treatment, "can look people in the eye and tell when people are being honest" Needs: acute stabilization of psychiatric condition, psychotherapy referral , resumption and/or adjustment of medication Risk Factors Assessment Male: Yes : Yes /single/: No Higher / Fall in social status: No Access to guns: No Health problems: Yes Mental Health Diagnoses: Yes Previous attempt: No Family history of suicide: No Previous psychiatric stay: Yes Hopelessness: Yes Smoker: Yes Protective Factors Assessment : Yes Responsible for young children: Yes Employed: Yes Data Vital Signs Last 24 Hrs: Date Time Temp Pulse Resp B/P (MAP) Pulse Ox O2 Delivery O2 Flow Rate FiO2 01/13/17 08:17 36.9 102 20 168/118 95 160/107 106 153/107 Meds Administered Last 24 Hrs: Meds Administered (Past 24Hrs) Medications (Trade) Dose Ordered Sig/Henry Route Start Time Stop Time Status Last Admin Dose Admin Carbamazepine (Tegretol Tab) 200 mg HS PO 01/11/17 22:00 02/10/17 21:59 01/12/17 21:23 200 MG Haloperidol (Haldol Tab) 10 mg STK-MED ONCE .ROUTE 01/13/17 09:53 01/13/17 09:54 DC 01/13/17 10:05 10 MG Lab Results Last 24 Hrs: Last 24 Hours Test 01/13/17 07:32 Bedside Glucose 135 mg/dl Problem Qualifiers (1) Diabetes: Diabetes mellitus type: type 2 Diabetes mellitus complication status: without complication Diabetes mellitus tube making machine operator insulin use: without mcc use Qualified Codes: E11.9 - Type 2 diabetes mellitus without complications
[2017-01-13] MEDS: HALOPERIDOL 5 MG TAB PO SCH (17:09)
[2017-01-13 19:42] VITALS: BP 136/85; PULSE 86
[2017-01-13] MEDS: QUETIAPINE FUMARATE 200 MG TAB PO SCH (20:15)
[2017-01-13] MEDS: ROPINIROLE HCL 0.25 MG TAB PO SCH (20:15)
[2017-01-13] MEDS: CARBAMAZEPINE 200 MG TAB PO SCH (20:15)
[2017-01-13] MEDS: CLONIDINE HCL 0.1 MG TAB PO SCH (20:18)
[2017-01-13] MEDS: QUETIAPINE FUMARATE 25 MG TAB PO PRN (23:10)
[2017-01-13] MEDS: hydrOXYzine HCL 25 MG TAB PO PRN (23:10)
[2017-01-14 06:40] VITALS: BP_SYST 127; BP_SYST 130; BP_DIAS 87; PULSE 102; PULSE 80; TEMP 36.7
[2017-01-14] MEDS: NICOTINE 21 MG/24 HR TDSY EXT SCH (07:56)
[2017-01-14] MEDS: CLONIDINE HCL 0.1 MG TAB PO SCH ×2 (07:57→22:30)
[2017-01-14] MEDS: BuPROPion SR 100 MG TABCR PO SCH (07:58)
[2017-01-14] MEDS: HALOPERIDOL 5 MG TAB PO SCH ×2 (07:58→17:15)
[2017-01-14] MEDS: CLONAZEPAM 0.5 MG TAB PO PRN ×2 (07:59→15:47)
[2017-01-14] MEDS: BENZTROPINE MESYLATE 1 MG TAB PO PRN (07:59)
[2017-01-14 08:26] LABS: BASO % 0.4 %; BASO ABS # 0.04 K/uL (0-0.2); COMPLETE YES; EOS % 0.8 %; HEMATOCRIT 43.6 % (42-52); IG% 0.2 %; LYMPH % 32.7 %; LYMPH ABS # 3.22 K/uL (1.2-3.4); MEAN CELL VOLUME 92.8 fL (80-100); MEAN CORPUSCULAR HEMOGLOBIN 32.6 pg (25-34); MEAN CORPUSCULAR HGB CONC 35.1 g/dl (32-36); MEAN PLATELET VOLUME 9.6 fL (7.4-10.4); MONO % 9.7 %; NEUT % 56.2 %; PLATELET COUNT 341 K/uL (130-400); WHITE BLOOD COUNT 9.85 K/uL (4.8-10.8)
[2017-01-14] MEDS: METFORMIN HCL 850 MG TAB PO SCH ×2 (08:40→17:15)
[2017-01-14] MEDS: QUETIAPINE FUMARATE 25 MG TAB PO PRN ×2 (10:27→15:47)
--- NOTE | 2017-01-14 13:00 | Psychiatric Progress Notes ---
Progress Note Date of Service Jan 14, 2017. Interval History 31 yo male with schizoaffective disorder, admitted voluntarily on 01/09 with acute psychosis in the setting of not taking his meds. Chief Complaint "there was shit in my bag, it wasn't even my clothes in there, I think housekeeping did it". Subjective Patient was seen & assessed interval progress reviewed with nursing. only slept 4 hours, did check the door at least on one occasion. Described visions of his children on the unit last pm then tearful and fell to his knees. Only received negative reinforcement from his girlfriend during a phone call. States noises here bother heam. Multiple prns yesterday, total 25 mg Haldol in addition to Klonopina, Seroquel and Vistaril prns. This am very focussed on feces being found in his belongings, staff do confirm that was BM in his pants, likely soiled self and too disorganized to remember. He has since washed his hand repeatedly and believes that it is contaminated and that others are talking about him. Review of Systems Psych: denies symptoms other than stated above Constitutional: denied Cardiovascular: denied GI: denied Neurologic: denied Remainder of 10 body systems also reviewed and denied other than noted above. Sleep Information Total Hours of Sleep: 4.50 Meal Information Percent of Breakfast Consumed: 100 Percent of Lunch Consumed: 100 Percent of Dinner Consumed: 100 Mental Status Exam During interview pt is: alert and oriented, guarded Appearance: appropriately dressed Eye contact is: fair Motor behavior is: steady gait & station, psychomotor agitation Speech: is pressured Affect: labile Mood is: dysphoric Thought process: blocking (doesn't respond to some questions), flight of ideas , perseveration Thought content: paranoid, delusions, ideas of reference Suicidal thought are: denied Homicidal thoughts are: denied Hallucinations: denies auditory, denies visual Cognition: other (impaired) Intelligence estimated to be: average Insight: impaired Judgement: impaired Impression Some progress since admission, as calmer, but remains psychotic, thought blocked , appears to be responding to internal stimuli. Cannot tolerate any noise or stimulation, so not actively participating in programming and spending a lot of time in room. Quetiapine has been increased with addition of 100 mg. at 1400 to target evening decompensation. Still need a family meeting with his girlfriend with whom he lives. Continues to have episodes of tachycardia and requires ongoing hospitalization for monitoring of psychosis and HTN. Plan (1) Schizoaffective disorder, bipolar type - q15 minute observation checks - resume outpatient psychiatric medications of Tegretol XR 200mg hs, Seroquel 400mg hs, and wellbutrin sr 200mg am, - convert klonopin to 0.5mg prn bid anxiety - add Seroquel 50mg tid prn psychosis/agitation - fasting labs ordered for 01/10 for glucose and lipid - obtain collateral from family, - attempt to arrange family meeting with as appropriate - Group and milieu therapy and 1:1 interactions with staff - Coordinate with outpt providers and arrange aftercare including psychotherapy referral 01/10 - FLP WNL with exception of triglycerides 196 and glucose 103. Will need followed as an OP - Arrange family meeting 01/11 - Add seroquel 100 mg. 1400 - Arrange family meeting 01/12 - Recommend girlfriend visited and spend some time with him so that she can help us assess for improvement and how close he is to baseline. They would also benefit from a family meeting. - Continue quetiapine. He has only received one 50 mg as needed dose on . - His sister stated she does not think he will be ready to go back to work at the time of discharge, but he is stating he wants to return as soon as possible. This will require further assessment at the time of discharge, and he will need a return to work note. - Follow-up with Dr. Dean on 01/24/17. 01/13 -as patient not very accepting of prns, will add Haldol standing order BID for additional coverage at least until he is therapeutic on Tegretol. Appeared hypomanic in my interactions with him today. Can have Tegretol level in am with repeat CBC and lytes. If remains this labile may need to hold Wellbutrin until more stable. Could titrate Seroquel further, I'm unsure if related to his tachy--he is quite active due to hypomania. Will continue to monitor for evidence of withdrawal in differential--currently doesn't appear to have sweating, tremor, etc. 01/14 -tegretol level only 4, will increase Tegretol to BID and repeat level in 5 days. will d/c Wellbutrin for now as very labile mood (hypomania alternating with depression) not sleeping well and dose have dopaminergic effects (active hannah and paranoia). Will increase Haldol standing order this afternoon. Directed staff to not leaving cleaning personal alone with patient in his room due to safety/paranoia. Remains on MNPR. (2) Diabetes - continue outpatient Metformin reported at 500mg once a day, - monitor blood sugar 01/10 - Correct metformin to 850 mg. BIDM - Check BSG daily - monitor BP and clarify if any past/current h/o HTN and address as appropriate Discharge / Aftercare Planning Primary Care Physician: Name: Dr Mustafa Psychiatrist: Name: [facility] [place] - Dr Foote Phone Number: [phone] Date of Appointment: Jan 24, 2017 Time of Appointment: 930 Therapist: Name: jennie Spiritual Care Coordinator: Name: jennie Antipsychotic Medications The patient is continuing 2 antipsychotics due to: a history of a minimum of 3 failed trials of monotherapy (LIST): see h&P Visit Code E&M Code: 25836 Inventory Assets Strengths: seeking treatment, "can look people in the eye and tell when people are being honest" Needs: acute stabilization of psychiatric condition, psychotherapy referral , resumption and/or adjustment of medication Risk Factors Assessment Male: Yes : Yes /single/: No Higher / Fall in social status: No Access to guns: No Health problems: Yes Mental Health Diagnoses: Yes Previous attempt: No Family history of suicide: No Previous psychiatric stay: Yes Hopelessness: Yes Smoker: Yes Protective Factors Assessment : Yes Responsible for young children: Yes Employed: Yes Data Vital Signs Last 24 Hrs: Date Time Temp Pulse Resp B/P (MAP) Pulse Ox O2 Delivery O2 Flow Rate FiO2 01/14/17 06:40 36.7 80 16 127/87 102 130/87 01/13/17 19:42 86 16 136/85 Meds Administered Last 24 Hrs: Meds Administered (Past 24Hrs) Medications (Trade) Dose Ordered Sig/Henry Route Start Time Stop Time Status Last Admin Dose Admin Haloperidol (Haldol Tab) 10 mg STK-MED ONCE .ROUTE 01/13/17 09:53 01/13/17 09:54 DC 01/13/17 10:05 10 MG Haloperidol (Haldol Tab) 5 mg BID17 PO 01/13/17 17:00 02/12/17 16:59 01/14/17 07:58 5 MG Clonidine HCl (Catapres Tab) 0.05 mg BID PO 01/13/17 22:00 02/12/17 21:59 01/14/17 07:57 0.05 MG Lab Results Last 24 Hrs: Last 24 Hours Test 01/14/17 08:03 01/14/17 08:05 Bedside Glucose 166 mg/dl White Blood Count 9.85 K/uL Red Blood Count 4.70 M/uL Hemoglobin 15.3 g/dL Hematocrit 43.6 % Mean Corpuscular Volume 92.8 fL Mean Corpuscular Hemoglobin 32.6 pg Mean Corpuscular Hemoglobin Concent 35.1 g/dl Platelet Count 341 K/uL Mean Platelet Volume 9.6 fL Neutrophils (%) (Auto) 56.2 % Lymphocytes (%) (Auto) 32.7 % Monocytes (%) (Auto) 9.7 % Eosinophils (%) (Auto) 0.8 % Basophils (%) (Auto) 0.4 % Neutrophils # (Auto) 5.53 K/uL Lymphocytes # (Auto) 3.22 K/uL Monocytes # (Auto) 0.96 K/uL Eosinophils # (Auto) 0.08 K/uL Basophils # (Auto) 0.04 K/uL RDW Standard Deviation 43.4 fL RDW Coefficient of Variation 12.6 % Immature Granulocyte % (Auto) 0.2 % Immature Granulocyte # (Auto) 0.02 K/uL Sodium Level 139 mmol/L Potassium Level 4.0 mmol/L Chloride Level 105 mmol/L Carbon Dioxide Level 27 mmol/L Anion Gap 7.0 mmol/L Carbamazepine (Tegretol) Level 4.6 mcg/ml Problem Qualifiers (1) Diabetes: Diabetes mellitus type: type 2 Diabetes mellitus complication status: without complication Diabetes mellitus exterminator helper insulin use: without exterminator helper use Qualified Codes: E11.9 - Type 2 diabetes mellitus without complications
[2017-01-14] MEDS: CARBAMAZEPINE 200 MG TAB PO SCH ×2 (14:54→22:31)
[2017-01-14 22:18] VITALS: BP 124/85; PULSE 91
[2017-01-14] MEDS: ROPINIROLE HCL 0.25 MG TAB PO SCH (22:30)
[2017-01-14] MEDS: QUETIAPINE FUMARATE 200 MG TAB PO SCH (22:30)
[2017-01-15 06:42] VITALS: BP_SYST 128; BP_SYST 131; BP_DIAS 86; PULSE 101; PULSE 87; TEMP 36.5
[2017-01-15 06:44] VITALS: Ht 170.2 cm; Wt 109.0 kg
[2017-01-15] MEDS: NICOTINE 21 MG/24 HR TDSY EXT SCH (09:12)
[2017-01-15] MEDS: CLONIDINE HCL 0.1 MG TAB PO SCH ×2 (09:13→20:28)
[2017-01-15] MEDS: METFORMIN HCL 850 MG TAB PO SCH ×2 (09:14→17:28)
[2017-01-15] MEDS: HALOPERIDOL 5 MG TAB PO SCH ×2 (09:14→17:28)
[2017-01-15] MEDS: CARBAMAZEPINE 200 MG TAB PO SCH ×2 (09:15→20:29)
--- NOTE | 2017-01-15 12:37 | Psychiatric Progress Notes ---
Progress Note Date of Service Jan 15, 2017. Interval History 31 yo male with schizoaffective disorder, admitted voluntarily on 01/09 with acute psychosis in the setting of not taking his meds. Chief Complaint "I'm OK now", referring to no longer being paranoid about his things. Subjective Patient was seen & assessed interval progress reviewed with nursing. He reports sleeping well but per staff less than 5 hours. He feels guilty about the amount of food he is ordering and confused as to how it will affect his hospital bill. He did benefit from a prn Seroquel. He still has periods of time during the day where he is sobbing, often around change of shift. Apparently did comment to his sister about wanting to talk to God but it is Monday and he is latter day. Review of Systems Psych: denies symptoms other than stated above Constitutional: denied Cardiovascular: denied GI: denied Neurologic: denied Remainder of 10 body systems also reviewed and denied other than noted above. Sleep Information Total Hours of Sleep: 4.75 Meal Information Percent of Breakfast Consumed: 75 Percent of Lunch Consumed: 100 Percent of Dinner Consumed: 50 Mental Status Exam During interview pt is: alert and oriented, guarded (less ) Appearance: appropriately dressed Eye contact is: fair Motor behavior is: steady gait & station Speech: normal in rate, rhythm & volume Affect: euthymic Mood is: anxious Thought process: flight of ideas, perseveration Thought content: paranoid, delusions, ideas of reference Suicidal thought are: denied Homicidal thoughts are: denied Hallucinations: denies auditory, denies visual Cognition: other (impaired) Intelligence estimated to be: average Insight: impaired Judgement: impaired Impression Some progress since admission, as calmer, but remains psychotic, thought blocked , appears to be responding to internal stimuli. Cannot tolerate any noise or stimulation, so not actively participating in programming and spending a lot of time in room. Quetiapine has been increased with addition of 100 mg. at 1400 to target evening decompensation. Still need a family meeting with his girlfriend with whom he lives. Continues to have episodes of tachycardia and requires ongoing hospitalization for monitoring of psychosis and HTN. Plan (1) Schizoaffective disorder, bipolar type - q15 minute observation checks - resume outpatient psychiatric medications of Tegretol XR 200mg hs, Seroquel 400mg hs, and wellbutrin sr 200mg am, - convert klonopin to 0.5mg prn bid anxiety - add Seroquel 50mg tid prn psychosis/agitation - fasting labs ordered for 01/10 for glucose and lipid - obtain collateral from family, - attempt to arrange family meeting with as appropriate - Group and milieu therapy and 1:1 interactions with staff - Coordinate with outpt providers and arrange aftercare including psychotherapy referral 01/10 - FLP WNL with exception of triglycerides 196 and glucose 103. Will need followed as an OP - Arrange family meeting 01/11 - Add seroquel 100 mg. 1400 - Arrange family meeting 01/12 - Recommend girlfriend visited and spend some time with him so that she can help us assess for improvement and how close he is to baseline. They would also benefit from a family meeting. - Continue quetiapine. He has only received one 50 mg as needed dose on . - His sister stated she does not think he will be ready to go back to work at the time of discharge, but he is stating he wants to return as soon as possible. This will require further assessment at the time of discharge, and he will need a return to work note. - Follow-up with Dr. Dean on 01/24/17. 01/13 -as patient not very accepting of prns, will add Haldol standing order BID for additional coverage at least until he is therapeutic on Tegretol. Appeared hypomanic in my interactions with him today. Can have Tegretol level in am with repeat CBC and lytes. If remains this labile may need to hold Wellbutrin until more stable. Could titrate Seroquel further, I'm unsure if related to his tachy--he is quite active due to hypomania. Will continue to monitor for evidence of withdrawal in differential--currently doesn't appear to have sweating, tremor, etc. 01/14 -tegretol level only 4, will increase Tegretol to BID and repeat level in 5 days. will d/c Wellbutrin for now as very labile mood (hypomania alternating with depression) not sleeping well and dose have dopaminergic effects (active hannah and paranoia). Will increase Haldol standing order this afternoon. Directed staff to not leaving cleaning personal alone with patient in his room due to safety/paranoia. Remains on MNPR. 01/15 --appears less restless today and received fewer prns following standing order Haldol. Will increase Seroquel to 500 mg this hs for residual symptoms. (2) Diabetes - continue outpatient Metformin reported at 500mg once a day, - monitor blood sugar 01/10 - Correct metformin to 850 mg. BIDM - Check BSG daily - monitor BP and clarify if any past/current h/o HTN and address as appropriate Discharge / Aftercare Planning Primary Care Physician: Name: Dr Mustafa Psychiatrist: Name: [facility] - Dr Foote Phone Number: [phone] Date of Appointment: Jan 24, 2017 Time of Appointment: 930 Therapist: Name: jennie Field Hockey And Lacrosse Coach: Name: jennie Antipsychotic Medications The patient is continuing 2 antipsychotics due to: a history of a minimum of 3 failed trials of monotherapy (LIST): see h&P Visit Code E&M Code: 36667 Inventory Assets Strengths: seeking treatment, "can look people in the eye and tell when people are being honest" Needs: acute stabilization of psychiatric condition, psychotherapy referral , resumption and/or adjustment of medication Risk Factors Assessment Male: Yes : Yes /single/: No Higher / Fall in social status: No Access to guns: No Health problems: Yes Mental Health Diagnoses: Yes Previous attempt: No Family history of suicide: No Previous psychiatric stay: Yes Hopelessness: Yes Smoker: Yes Protective Factors Assessment : Yes Responsible for young children: Yes Employed: Yes Data Vital Signs Last 24 Hrs: Date Time Temp Pulse Resp B/P (MAP) Pulse Ox O2 Delivery O2 Flow Rate FiO2 01/15/17 06:42 36.5 87 18 128/86 101 131/86 01/14/17 22:18 91 14 124/85 Meds Administered Last 24 Hrs: Meds Administered (Past 24Hrs) Medications (Trade) Dose Ordered Sig/Henry Route Start Time Stop Time Status Last Admin Dose Admin Haloperidol (Haldol Tab) 5 mg BID17 PO 01/13/17 17:00 01/14/17 12:51 DC 01/14/17 07:58 5 MG Clonidine HCl (Catapres Tab) 0.05 mg BID PO 01/13/17 22:00 02/12/17 21:59 01/15/17 09:13 0.05 MG Carbamazepine (Tegretol Tab) 200 mg BID PO 01/14/17 14:00 02/10/17 13:59 01/15/17 09:15 200 MG Haloperidol (Haldol Tab) 10 mg BID17 PO 01/14/17 17:00 02/12/17 16:59 01/15/17 09:14 10 MG Lab Results Last 24 Hrs: Last 24 Hours Test 01/15/17 08:33 Bedside Glucose 120 mg/dl Problem Qualifiers (1) Diabetes: Diabetes mellitus type: type 2 Diabetes mellitus complication status: without complication Diabetes mellitus care home insulin use: without terminal block assembler use Qualified Codes: E11.9 - Type 2 diabetes mellitus without complications
[2017-01-15 20:25] VITALS: BP 127/88; PULSE 102
[2017-01-15] MEDS: ROPINIROLE HCL 0.25 MG TAB PO SCH (20:28)
[2017-01-15] MEDS: QUETIAPINE FUMARATE 100 MG TAB PO SCH (20:29)
[2017-01-16] MEDS: hydrOXYzine HCL 25 MG TAB PO PRN (00:10)
[2017-01-16] MEDS: ACETAMINOPHEN 325 MG TAB PO PRN (05:39)
[2017-01-16 06:41] VITALS: BP_SYST 120; BP_SYST 126; BP_DIAS 82; BP_DIAS 87; PULSE 87; PULSE 93; TEMP 36.7
[2017-01-16] MEDS: NICOTINE 21 MG/24 HR TDSY EXT SCH (08:51)
[2017-01-16] MEDS: CLONIDINE HCL 0.1 MG TAB PO SCH ×2 (08:52→21:15)
[2017-01-16] MEDS: METFORMIN HCL 850 MG TAB PO SCH ×2 (08:53→17:23)
[2017-01-16] MEDS: HALOPERIDOL 5 MG TAB PO SCH ×2 (08:53→17:23)
[2017-01-16] MEDS: CARBAMAZEPINE 200 MG TAB PO SCH ×2 (08:54→21:16)
[2017-01-16] MEDS: QUETIAPINE FUMARATE 25 MG TAB PO PRN (13:35)
--- NOTE | 2017-01-16 13:41 | Psychiatric Progress Notes ---
Progress Note Date of Service Jan 16, 2017. Interval History 31 yo male with schizoaffective disorder, admitted voluntarily on 01/09 with acute psychosis in the setting of not taking his meds. Chief Complaint "Better, okay". Subjective Patient was seen & assessed interval progress reviewed with Treatment Team. Staff report he has been more organized and able to attend some programming. He told staff he thinks his medication is helping and that he is thinking more clearly. He had appropriate interactions with staff and peers. Last evening he had a period of tearfulness in his room, and said his emotions fluctuate throughout the day and at times he feels overwhelmed with sadness. He was able to process this, stating he missed his family and children. He has appeared less anxious and guarded. He had a good visit with his family yesterday, and his sister stated that he is improved, but still paranoid. Today, he states that his mood is improving and that he is feeling better overall. He is doing his ADLs, and says his goal for today is to get his clothes washed. He is doing to groups, reading, and enjoys playing music and listening to music, so has been using the keyboard. He denies problems with sleep and appetite, although per nursing report, he only slept 3 hours last night. He is tolerating medications well, although he thinks that the trazodone is making him feel tired in the morning. He is willing to have a meeting with his girlfriend. Sleep Information Total Hours of Sleep: 3.00 Meal Information Percent of Breakfast Consumed: 100 Percent of Lunch Consumed: 100 Percent of Dinner Consumed: 100 Mental Status Exam During interview pt is: alert and oriented, cooperative, guarded Appearance: appropriately dressed, appropriately groomed, other (appears older than his stated age.) Eye contact is: fair Motor behavior is: steady gait & station Speech: normal in rate, rhythm & volume Affect: euthymic Mood is: other ("Better, okay") Thought process: concrete Thought content: other (denies feeling paranoid, but appears suspicious and guarded) Suicidal thought are: denied Homicidal thoughts are: denied Hallucinations: denies auditory, denies visual Cognition: other (impaired) Intelligence estimated to be: average Insight: impaired Judgement: impaired Impression Continues with slow progress, is calmer, less thought blocked, but still with paranoia. Has difficulty tolerating any noise or stimulation, so had not been participating in programming and spending a lot of time in room, but is now out more, interacting with others, and going to some groups. Quetiapine has been increased with addition of 100 mg. at 1400 to target evening decompensation. Still need a family meeting with his girlfriend with whom he lives. Continues to have episodes of tachycardia. Inpatient treatment indicated due to the severity of symptoms and risk for immediate decompensation and inability to function if discharged prematurely. We have not yet been able to involve his girlfriend, whom he lives with, and there are 2 young children in the home. Plan (1) Schizoaffective disorder, bipolar type - q15 minute observation checks - resume outpatient psychiatric medications of Tegretol XR 200mg hs, Seroquel 400mg hs, and wellbutrin sr 200mg am, - convert klonopin to 0.5mg prn bid anxiety - add Seroquel 50mg tid prn psychosis/agitation - fasting labs ordered for 01/10 for glucose and lipid - obtain collateral from family, - attempt to arrange family meeting with as appropriate - Group and milieu therapy and 1:1 interactions with staff - Coordinate with outpt providers and arrange aftercare including psychotherapy referral 01/10 - FLP WNL with exception of triglycerides 196 and glucose 103. Will need followed as an OP - Arrange family meeting 01/11 - Add seroquel 100 mg. 1400 - Arrange family meeting 01/12 - Recommend girlfriend visited and spend some time with him so that she can help us assess for improvement and how close he is to baseline. They would also benefit from a family meeting. - Continue quetiapine. He has only received one 50 mg as needed dose on . - His sister stated she does not think he will be ready to go back to work at the time of discharge, but he is stating he wants to return as soon as possible. This will require further assessment at the time of discharge, and he will need a return to work note. - Follow-up with Dr. Dean on 01/24/17. 6/2 - as patient not very accepting of prns, will add Haldol standing order BID for additional coverage at least until he is therapeutic on Tegretol. Appeared hypomanic in my interactions with him today. Can have Tegretol level in am with repeat CBC and lytes. If remains this labile may need to hold Wellbutrin until more stable. Could titrate Seroquel further, I'm unsure if related to his tachy--he is quite active due to hypomania. Will continue to monitor for evidence of withdrawal in differential--currently doesn't appear to have sweating, tremor, etc. 01/14 - tegretol level only 4, will increase Tegretol to BID and repeat level in 5 days. will d/c Wellbutrin for now as very labile mood (hypomania alternating with depression) not sleeping well and dose have dopaminergic effects (active hannah and paranoia). Will increase Haldol standing order this afternoon. Directed staff to not leaving cleaning personal alone with patient in his room due to safety/paranoia. Remains on MNPR. 01/15 -appears less restless today and received fewer prns following standing order Haldol. Will increase Seroquel to 500 mg this hs for residual symptoms. 01/16 - continue current medications. Arrange family meeting with girlfriend. Has been behaviorally appropriate, so we'll discontinue safety tray. (2) Diabetes - continue outpatient Metformin reported at 500mg once a day, - monitor blood sugar 01/10 - Correct metformin to 850 mg. BIDM - Check BSG daily - monitor BP and clarify if any past/current h/o HTN and address as appropriate Discharge / Aftercare Planning Primary Care Physician: Name: Dr Mustafa Psychiatrist: Name: [facility] - Dr Foote Phone Number: [phone] Date of Appointment: Jan 24, 2017 Time of Appointment: 930 Therapist: Name: jennie Agricultural Equipment Salesperson: Name: jennie Antipsychotic Medications The patient is continuing 2 antipsychotics due to: a history of a minimum of 3 failed trials of monotherapy (LIST): see h&P Visit Code E&M Code: 23886 Inventory Assets Strengths: seeking treatment, "can look people in the eye and tell when people are being honest" Needs: acute stabilization of psychiatric condition, psychotherapy referral , resumption and/or adjustment of medication Risk Factors Assessment Male: Yes : Yes /single/: No Higher / Fall in social status: No Access to guns: No Health problems: Yes Mental Health Diagnoses: Yes Previous attempt: No Family history of suicide: No Previous psychiatric stay: Yes Hopelessness: Yes Smoker: Yes Protective Factors Assessment : Yes Responsible for young children: Yes Employed: Yes Data Vital Signs Last 24 Hrs: Date Time Temp Pulse Resp B/P (MAP) Pulse Ox O2 Delivery O2 Flow Rate FiO2 01/16/17 06:41 36.7 87 16 126/82 93 120/87 01/15/17 20:25 102 14 127/88 Meds Administered Last 24 Hrs: Meds Administered (Past 24Hrs) Medications (Trade) Dose Ordered Sig/Henry Route Start Time Stop Time Status Last Admin Dose Admin Carbamazepine (Tegretol Tab) 200 mg BID PO 01/14/17 14:00 02/10/17 13:59 01/16/17 08:54 200 MG Haloperidol (Haldol Tab) 10 mg BID17 PO 01/14/17 17:00 02/12/17 16:59 01/16/17 08:53 10 MG Quetiapine Fumarate (seroQUEL TAB) 500 mg HS PO 01/15/17 22:00 02/08/17 21:59 01/15/17 20:29 500 MG Lab Results Last 24 Hrs: Last 24 Hours Test 01/16/17 08:31 Bedside Glucose 115 mg/dl Problem Qualifiers (1) Diabetes: Diabetes mellitus type: type 2 Diabetes mellitus complication status: without complication Diabetes mellitus usp insulin use: without terminal computer operator use Qualified Codes: E11.9 - Type 2 diabetes mellitus without complications
[2017-01-16 20:34] VITALS: BP 130/88; PULSE 99
[2017-01-16] MEDS: ROPINIROLE HCL 0.25 MG TAB PO SCH (21:15)
[2017-01-16] MEDS: QUETIAPINE FUMARATE 100 MG TAB PO SCH (21:16)
[2017-01-17 06:42] VITALS: BP_SYST 128; BP_SYST 129; BP_DIAS 87; BP_DIAS 91; PULSE 102; PULSE 93; TEMP 36.8
[2017-01-17] MEDS: ACETAMINOPHEN 325 MG TAB PO PRN ×2 (07:36→18:57)
[2017-01-17] MEDS: METFORMIN HCL 850 MG TAB PO SCH ×2 (08:34→17:29)
[2017-01-17] MEDS: CLONIDINE HCL 0.1 MG TAB PO SCH ×2 (08:34→21:23)
[2017-01-17] MEDS: CARBAMAZEPINE 200 MG TAB PO SCH ×2 (08:35→21:24)
[2017-01-17] MEDS: HALOPERIDOL 5 MG TAB PO SCH ×2 (08:35→17:29)
[2017-01-17] MEDS: NICOTINE 21 MG/24 HR TDSY EXT SCH (08:38)
--- NOTE | 2017-01-17 12:41 | Psychiatric Progress Notes ---
Progress Note Date of Service Jan 17, 2017. Interval History 31 yo male with schizoaffective disorder, admitted voluntarily on 01/09 with acute psychosis in the setting of not taking his meds. Chief Complaint "I'm doing really well." Subjective Patient was seen & assessed interval progress reviewed with nursing. Patient participating in unit programming. He was overstimulated yesterday (patient reports this was from watching a hockey game but staff reported it was during group)received prn Seroquel. Staff report that he continues to be paranoid but continues to improve overall. Today he reports that is mood is a 10/10. He feels that he is doing better because her is "being more honest" with himself. He reports a willingness to have a therapist when he is discharged. He has been going to [facility] for medication appointments and they have asked if he would like a therapist but up until now he has not been willing. He denies paranoia. When asked if Cristal has been in to visit, he replies that he things she was here this morning because he thought he heard someone call her name but he did not see her. Girlientom was not here this morning and he acknowledges that she would not come to the unit without seeing him. She is a vocational childcare teacher and works from 9 am to 5:30 pm Monday through Monday. He reports poor med compliance at home and relates it to his work schedule but has a hard time explaining how this schedule interferes with him taking his medications other than he sleeps during the day after working nights but switches back to sleeping at night on his days off. Seems that he will stay up after working nights if her doesn't have to work the next night. He is would like to have a meeting with girlfriend. He does appear to be minimally thought blocked but much improved. Denies suicidal thoughts, intention or plan or thoughts of harming others. He slept 5 hours last night which is a "good\\normal" for him. 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 Review of Systems negative; headache earlier today relieved by tylenol. Sleep Information Total Hours of Sleep: 5.75 Meal Information Percent of Breakfast Consumed: 50 Percent of Lunch Consumed: 100 Percent of Dinner Consumed: 100 Mental Status Exam During interview pt is: alert and oriented, cooperative Appearance: appropriately dressed, appropriately groomed, other (appears older than his stated age.) Eye contact is: good Motor behavior is: steady gait & station Speech: normal in rate, rhythm & volume Affect: euthymic Mood is: other ("really good." ) Thought process: concrete Thought content: other (denies feeling paranoid) Suicidal thought are: denied Homicidal thoughts are: denied Hallucinations: denies auditory (but does report hearing someone call Cristal' s name this morning. ), denies visual Cognition: other (impaired) Intelligence estimated to be: average Insight: impaired Judgement: impaired Impression Continues with slow progress, is calmer, less thought blocked, but still with paranoia. Has difficulty tolerating any noise or stimulation, so had not been participating in programming and spending a lot of time in room, but is now out more, interacting with others, and going to some groups. Quetiapine has been increased with addition of 100 mg. at 1400 to target evening decompensation. Still need a family meeting with his girlfriend with whom he lives. Continues to have episodes of tachycardia. Inpatient treatment indicated due to the severity of symptoms and risk for immediate decompensation and inability to function if discharged prematurely. We have not yet been able to involve his girlfriend, whom he lives with, and there are 2 young children in the home. His work schedule seems to have an impact on med compliance. Plan (1) Schizoaffective disorder, bipolar type - q15 minute observation checks - resume outpatient psychiatric medications of Tegretol XR 200mg hs, Seroquel 400mg hs, and wellbutrin sr 200mg am, - convert klonopin to 0.5mg prn bid anxiety - add Seroquel 50mg tid prn psychosis/agitation - fasting labs ordered for 01/10 for glucose and lipid - obtain collateral from family, - attempt to arrange family meeting with as appropriate - Group and milieu therapy and 1:1 interactions with staff - Coordinate with outpt providers and arrange aftercare including psychotherapy referral 01/10 - FLP WNL with exception of triglycerides 196 and glucose 103. Will need followed as an OP - Arrange family meeting 01/11 - Add seroquel 100 mg. 1400 - Arrange family meeting 01/12 - Recommend girlfriend visited and spend some time with him so that she can help us assess for improvement and how close he is to baseline. They would also benefit from a family meeting. - Continue quetiapine. He has only received one 50 mg as needed dose on . - His sister stated she does not think he will be ready to go back to work at the time of discharge, but he is stating he wants to return as soon as possible. This will require further assessment at the time of discharge, and he will need a return to work note. - Follow-up with Dr. Dean on 01/24/17. 01/13 - as patient not very accepting of prns, will add Haldol standing order BID for additional coverage at least until he is therapeutic on Tegretol. Appeared hypomanic in my interactions with him today. Can have Tegretol level in am with repeat CBC and lytes. If remains this labile may need to hold Wellbutrin until more stable. Could titrate Seroquel further, I'm unsure if related to his tachy--he is quite active due to hypomania. Will continue to monitor for evidence of withdrawal in differential--currently doesn't appear to have sweating, tremor, etc. 01/14 - tegretol level only 4, will increase Tegretol to BID and repeat level in 5 days. will d/c Wellbutrin for now as very labile mood (hypomania alternating with depression) not sleeping well and dose have dopaminergic effects (active hannah and paranoia). Will increase Haldol standing order this afternoon. Directed staff to not leaving cleaning personal alone with patient in his room due to safety/paranoia. Remains on MNPR. 01/15 -appears less restless today and received fewer prns following standing order Haldol. Will increase Seroquel to 500 mg this hs for residual symptoms. 01/16 - continue current medications. Arrange family meeting with girlfriend. Has been behaviorally appropriate, so we'll discontinue safety tray. 01/17 -continue current medications. Still needs meeting with girlfriend, ideally in person but may need to be on the phone due to her work schedule. (2) Diabetes - continue outpatient Metformin reported at 500mg once a day, - monitor blood sugar 01/10 - Correct metformin to 850 mg. BID - Check BSG daily - monitor BP and clarify if any past/current h/o HTN and address as appropriate Discharge / Aftercare Planning Primary Care Physician: Name: Dr Matamoros Psychiatrist: Name: [facility] - Dr Foote Phone Number: [phone] Date of Appointment: Jan 24, 2017 Time of Appointment: 930 Therapist: Name: jennie Finger Buffs Assembler: Name: jennie Antipsychotic Medications The patient is continuing 2 antipsychotics due to: a history of a minimum of 3 failed trials of monotherapy (LIST): see h&P Visit Code E&M Code: 47395 Inventory Assets Strengths: seeking treatment, "can look people in the eye and tell when people are being honest" Needs: acute stabilization of psychiatric condition, psychotherapy referral , resumption and/or adjustment of medication Risk Factors Assessment Male: Yes : Yes /single/: No Higher / Fall in social status: No Access to guns: No Health problems: Yes Mental Health Diagnoses: Yes Previous attempt: No Family history of suicide: No Previous psychiatric stay: Yes Hopelessness: Yes Smoker: Yes Protective Factors Assessment : Yes Responsible for young children: Yes Employed: Yes Data Vital Signs Last 24 Hrs: Date Time Temp Pulse Resp B/P (MAP) Pulse Ox O2 Delivery O2 Flow Rate FiO2 01/17/17 06:42 36.8 93 16 128/91 102 129/87 01/16/17 20:34 99 18 130/88 Meds Administered Last 24 Hrs: Current Inpatient Medications Medications (Trade) Dose Ordered Sig/Henry Route Start Time Stop Time Status Last Admin Dose Admin Acetaminophen (Tylenol Tab) 650 mg Q4H PRN PO 01/09/17 03:00 02/08/17 02:59 01/17/17 07:36 650 MG Al Hydroxide/Mg Hydroxide (Maalox Susp) 30 ml Q4H PRN PO 01/09/17 03:00 02/08/17 02:59 Bismuth Subsalicylate (Kaopectate Liqd) 15 ml DAILY PRN PO 01/09/17 03:00 02/08/17 02:59 Magnesium Hydroxide (Milk Of Magnesia Susp) 30 ml DAILY PRN PO 01/09/17 03:00 02/08/17 02:59 Sodium Chloride ([place] Nasal [place]) PRN PRN NA 01/09/17 03:00 02/08/17 02:59 Hydroxyzine HCl (Vistaril Tab) 50 mg HSZ PRN PO 01/09/17 03:00 02/08/17 02:59 01/16/17 00:10 50 MG Hydroxyzine HCl (Vistaril Tab) 25 mg Q4H PRN PO 01/09/17 03:00 02/08/17 02:59 Nicotine Polacrilex (Nicorette 2MG Gum) 2 piece Q2H PRN MT 01/09/17 03:00 02/08/17 02:59 Nicotine (Nicoderm Cq 21MG Patch) 1 patch QAM EXT 01/09/17 09:00 02/08/17 08:59 01/17/17 08:38 1 PATCH Miscellaneous (Remove Nicoderm Patch) 1 ea QAM N/A 01/10/17 09:00 02/09/17 08:59 01/16/17 08:52 1 EA Haloperidol (Haldol Tab) 5 mg Q4H PRN PO 01/09/17 09:30 02/08/17 09:29 01/13/17 19:58 5 MG Clonazepam (Klonopin Tab) 0.5 mg BID PRN PO 01/09/17 10:15 02/08/17 10:14 01/14/17 15:47 0.5 MG Quetiapine Fumarate (seroQUEL TAB) 50 mg TID PRN PO 01/09/17 10:15 02/08/17 10:14 01/16/17 13:35 50 MG Haloperidol Lactate (Haldol Inj) 5 mg Q4H PRN IM 01/09/17 11:00 02/08/17 10:59 Benztropine Mesylate (Cogentin Tab) 1 mg TID PRN PO 01/09/17 11:00 02/08/17 10:59 01/14/17 07:59 1 MG Metformin HCl (Glucophage Tab) 850 mg BIDM PO 01/10/17 17:45 02/09/17 17:44 01/17/17 08:34 850 MG Ropinirole HCl (Requip Tab) 0.5 mg HS PO 01/10/17 22:00 02/09/17 21:59 01/16/17 21:15 0.5 MG Clonidine HCl (Catapres Tab) 0.05 mg BID PO 01/13/17 22:00 02/12/17 21:59 01/17/17 08:34 0.05 MG Carbamazepine (Tegretol Tab) 200 mg BID PO 01/14/17 14:00 02/10/17 13:59 01/17/17 08:35 200 MG Haloperidol (Haldol Tab) 10 mg BID17 PO 01/14/17 17:00 02/12/17 16:59 01/17/17 08:35 10 MG Quetiapine Fumarate (seroQUEL TAB) 500 mg HS PO 01/15/17 22:00 02/08/17 21:59 01/16/17 21:16 500 MG Lab Results Last 24 Hrs: Last 24 Hours Test 01/17/17 07:29 Bedside Glucose 142 mg/dl Problem Qualifiers (1) Diabetes: Diabetes mellitus type: type 2 Diabetes mellitus complication status: without complication Diabetes mellitus nursing home insulin use: without manager hospital use Qualified Codes: E11.9 - Type 2 diabetes mellitus without complications
[2017-01-17] MEDS ORDERED: NURSING VERBAL MED ORDER ONE (20:45)
[2017-01-17] MEDS: QUETIAPINE FUMARATE 100 MG TAB PO SCH (21:23)
[2017-01-17] MEDS: ROPINIROLE HCL 0.25 MG TAB PO SCH (21:23)
[2017-01-17] MEDS ORDERED: IBUPROFEN 600 MG TAB PO PRN (21:30)
[2017-01-17 21:32] VITALS: BP 131/87; PULSE 84
[2017-01-17] MEDS: BENZOCAINE 20% (ORAJEL) 11.9 GM TUBE MT PRN (22:07)
[2017-01-18] MEDS: ACETAMINOPHEN 325 MG TAB PO PRN (04:08)
[2017-01-18] MEDS: BENZOCAINE 20% (ORAJEL) 11.9 GM TUBE MT PRN ×2 (04:09→21:15)
[2017-01-18 06:44] VITALS: BP_SYST 120; BP_SYST 132; BP_DIAS 80; BP_DIAS 94; PULSE 75; PULSE 83; TEMP 36.3
[2017-01-18] MEDS: NICOTINE 21 MG/24 HR TDSY EXT SCH (07:18)
[2017-01-18] MEDS: CLONIDINE HCL 0.1 MG TAB PO SCH ×2 (07:19→21:16)
[2017-01-18] MEDS: HALOPERIDOL 5 MG TAB PO SCH ×2 (07:21→17:36)
[2017-01-18] MEDS: CARBAMAZEPINE 200 MG TAB PO SCH ×2 (07:23→21:17)
[2017-01-18] MEDS: METFORMIN HCL 850 MG TAB PO SCH ×2 (08:45→17:36)
--- NOTE | 2017-01-18 12:30 | Psychiatric Progress Notes ---
Progress Note Date of Service Jan 18, 2017. Interval History 31 yo male with schizoaffective disorder, admitted voluntarily on 01/09 with acute psychosis in the setting of not taking his meds. Chief Complaint "doing okay". Subjective Patient was seen & assessed interval progress reviewed with treatment team. Patient had a phone meeting with Cristal rosenthal, this morning. He thought she was coming in for the meeting but it was held on the phone. Fernando and patient agree they have relationship problems. He admits that he has been controlling. They have been together for 13 year and Cristal was 13 year old when they meet. Patient reports that Cristal never drove because he did all the driving. He recognizes that it is time them to work as a team instead of him being in control of everything. He reports that it has been difficult to "humble himself " but he knows that he needs to change. We discussed importance of taking his medication daily and that he can take the seroquel when he gets home from work which is his bedtime. He is hopeful and optimistic. He expresses that he misses his daughters and becomes tearful. He denies any paranoid thoughts or hallucinations. He denies suicidal or homicidal ideation. He is participating in unit program appropriately. Review of Systems complained of tooth pain resolved with ibuprofen and orajel Sleep Information Total Hours of Sleep: 4.75 Meal Information Percent of Breakfast Consumed: 100 Percent of Lunch Consumed: 100 Percent of Dinner Consumed: 100 Mental Status Exam During interview pt is: alert and oriented, cooperative Appearance: appropriately dressed, appropriately groomed, other (appears older than his stated age.) Eye contact is: good Motor behavior is: steady gait & station Speech: normal in rate, rhythm & volume Affect: tearful (when talking about missing his children), euthymic Mood is: other ("improving." ) Thought process: concrete Thought content: other (denies feeling paranoid) Suicidal thought are: denied Homicidal thoughts are: denied Hallucinations: denies auditory (but does report hearing someone call Cristal' s name this morning. ), denies visual Cognition: other (impaired) Intelligence estimated to be: average Insight: fair Judgement: fair Impression Continues with slow progress, is calmer, less thought blocked, but still with paranoia. Has difficulty tolerating any noise or stimulation, so had not been participating in programming and spending a lot of time in room, but is now out more, interacting with others, and going to some groups. Quetiapine has been increased with addition of 100 mg. at 1400 to target evening decompensation. Still need a family meeting with his girlfriend with whom he lives. Continues to have episodes of tachycardia. Inpatient treatment indicated due to the severity of symptoms and risk for immediate decompensation and inability to function if discharged prematurely. We have not yet been able to involve his girlfriend, whom he lives with, and there are 2 young children in the home. His work schedule seems to have an impact on med compliance. Plan (1) Schizoaffective disorder, bipolar type - q15 minute observation checks - resume outpatient psychiatric medications of Tegretol XR 200mg hs, Seroquel 400mg hs, and wellbutrin sr 200mg am, - convert klonopin to 0.5mg prn bid anxiety - add Seroquel 50mg tid prn psychosis/agitation - fasting labs ordered for 01/10 for glucose and lipid - obtain collateral from family, - attempt to arrange family meeting with as appropriate - Group and milieu therapy and 1:1 interactions with staff - Coordinate with outpt providers and arrange aftercare including psychotherapy referral 01/10 - FLP WNL with exception of triglycerides 196 and glucose 103. Will need followed as an OP - Arrange family meeting 01/11 - Add seroquel 100 mg. 1400 - Arrange family meeting 01/12 - Recommend girlfriend visited and spend some time with him so that she can help us assess for improvement and how close he is to baseline. They would also benefit from a family meeting. - Continue quetiapine. He has only received one 50 mg as needed dose on . - His sister stated she does not think he will be ready to go back to work at the time of discharge, but he is stating he wants to return as soon as possible. This will require further assessment at the time of discharge, and he will need a return to work note. - Follow-up with Dr. Dean on 01/24/17. 6/ - as patient not very accepting of prns, will add Haldol standing order BID for additional coverage at least until he is therapeutic on Tegretol. Appeared hypomanic in my interactions with him today. Can have Tegretol level in am with repeat CBC and lytes. If remains this labile may need to hold Wellbutrin until more stable. Could titrate Seroquel further, I'm unsure if related to his tachy--he is quite active due to hypomania. Will continue to monitor for evidence of withdrawal in differential--currently doesn't appear to have sweating, tremor, etc. 01/14 - tegretol level only 4, will increase Tegretol to BID and repeat level in 5 days. will d/c Wellbutrin for now as very labile mood (hypomania alternating with depression) not sleeping well and dose have dopaminergic effects (active hannah and paranoia). Will increase Haldol standing order this afternoon. Directed staff to not leaving cleaning personal alone with patient in his room due to safety/paranoia. Remains on MNPR. / -appears less restless today and received fewer prns following standing order Haldol. Will increase Seroquel to 500 mg this hs for residual symptoms. 01/16 - continue current medications. Arrange family meeting with girlfriend. Has been behaviorally appropriate, so we'll discontinue safety tray. 01/17 -continue current medications. Still needs meeting with girlfriend, ideally in person but may need to be on the phone due to her work schedule. 01/18-phone meeting with Cristal rosenthal, this morning. Addressing relationship issues. Both willing to have marriage counseling. Patient is willing to have therapist and porter sample case. (2) Diabetes - continue outpatient Metformin reported at 500mg once a day, - monitor blood sugar 01/10 - Correct metformin to 850 mg. BID - Check BSG daily - monitor BP and clarify if any past/current h/o HTN and address as appropriate Discharge / Aftercare Planning Primary Care Physician: Name: Dr Matamoros Appointment Notes: As needed Psychiatrist: Name: [facility] - Dr Foote Phone Number: [phone] Date of Appointment: Jan 24, 2017 Time of Appointment: 9:30pm Therapist: Name: Nathan Tuttle Date of Appointment: Jan 30, 2017 Time of Appointment: 1pm Air Bag Builder: Name: na Antipsychotic Medications The patient is continuing 2 antipsychotics due to: a history of a minimum of 3 failed trials of monotherapy (LIST): see h&P Visit Code E&M Code: 93405 Inventory Assets Strengths: seeking treatment, "can look people in the eye and tell when people are being honest" Needs: acute stabilization of psychiatric condition, psychotherapy referral , resumption and/or adjustment of medication Risk Factors Assessment Male: Yes : Yes /single/: No Higher / Fall in social status: No Access to guns: No Health problems: Yes Mental Health Diagnoses: Yes Previous attempt: No Family history of suicide: No Previous psychiatric stay: Yes Hopelessness: Yes Smoker: Yes Protective Factors Assessment : Yes Responsible for young children: Yes Employed: Yes Data Vital Signs Last 24 Hrs: Date Time Temp Pulse Resp B/P (MAP) Pulse Ox O2 Delivery O2 Flow Rate FiO2 01/18/17 06:44 36.3 75 16 120/80 83 132/94 01/17/17 21:32 84 131/87 Meds Administered Last 24 Hrs: Current Inpatient Medications Medications (Trade) Dose Ordered Sig/Henry Route Start Time Stop Time Status Last Admin Dose Admin Acetaminophen (Tylenol Tab) 650 mg Q4H PRN PO 01/09/17 03:00 02/08/17 02:59 01/18/17 04:08 650 MG Al Hydroxide/Mg Hydroxide (Maalox Susp) 30 ml Q4H PRN PO 01/09/17 03:00 02/08/17 02:59 Bismuth Subsalicylate (Kaopectate Liqd) 15 ml DAILY PRN PO 01/09/17 03:00 02/08/17 02:59 Magnesium Hydroxide (Milk Of Magnesia Susp) 30 ml DAILY PRN PO 01/09/17 03:00 02/08/17 02:59 Sodium Chloride ([place] Nasal [place]) PRN PRN NA 01/09/17 03:00 02/08/17 02:59 Hydroxyzine HCl (Vistaril Tab) 50 mg HSZ PRN PO 01/09/17 03:00 02/08/17 02:59 01/16/17 00:10 50 MG Hydroxyzine HCl (Vistaril Tab) 25 mg Q4H PRN PO 01/09/17 03:00 02/08/17 02:59 Nicotine Polacrilex (Nicorette 2MG Gum) 2 piece Q2H PRN MT 01/09/17 03:00 02/08/17 02:59 Nicotine (Nicoderm Cq 21MG Patch) 1 patch QAM EXT 01/09/17 09:00 02/08/17 08:59 01/18/17 07:18 1 PATCH Miscellaneous (Remove Nicoderm Patch) 1 ea QAM N/A 01/10/17 09:00 02/09/17 08:59 01/16/17 08:52 1 EA Haloperidol (Haldol Tab) 5 mg Q4H PRN PO 01/09/17 09:30 02/08/17 09:29 01/13/17 19:58 5 MG Clonazepam (Klonopin Tab) 0.5 mg BID PRN PO 01/09/17 10:15 02/08/17 10:14 01/14/17 15:47 0.5 MG Quetiapine Fumarate (seroQUEL TAB) 50 mg TID PRN PO 01/09/17 10:15 02/08/17 10:14 01/16/17 13:35 50 MG Haloperidol Lactate (Haldol Inj) 5 mg Q4H PRN IM 01/09/17 11:00 02/08/17 10:59 Benztropine Mesylate (Cogentin Tab) 1 mg TID PRN PO 01/09/17 11:00 02/08/17 10:59 01/14/17 07:59 1 MG Metformin HCl (Glucophage Tab) 850 mg BIDM PO 01/10/17 17:45 02/09/17 17:44 01/18/17 08:45 850 MG Ropinirole HCl (Requip Tab) 0.5 mg HS PO 01/10/17 22:00 02/09/17 21:59 01/17/17 21:23 0.5 MG Clonidine HCl (Catapres Tab) 0.05 mg BID PO 01/13/17 22:00 02/12/17 21:59 01/18/17 07:19 0.05 MG Carbamazepine (Tegretol Tab) 200 mg BID PO 01/14/17 14:00 02/10/17 13:59 01/18/17 07:23 200 MG Haloperidol (Haldol Tab) 10 mg BID17 PO 01/14/17 17:00 02/12/17 16:59 6/7/17 07:21 10 MG Quetiapine Fumarate (seroQUEL TAB) 500 mg HS PO 01/15/17 22:00 02/08/17 21:59 01/17/17 21:23 500 MG Benzocaine (Orajel 2% Oral Gel) 1 appln Q4H PRN MT 01/17/17 21:30 02/16/17 21:29 01/18/17 04:09 1 APPLN Ibuprofen (Motrin Tab) 600 mg Q8H PRN PO 01/17/17 21:30 02/16/17 21:29 01/17/17 22:07 600 MG Lab Results Last 24 Hrs: Last 24 Hours Test 01/18/17 07:11 Bedside Glucose 137 mg/dl Problem Qualifiers (1) Diabetes: Diabetes mellitus type: type 2 Diabetes mellitus complication status: without complication Diabetes mellitus continuous churn buttermaker insulin use: without continuous churn buttermaker use Qualified Codes: E11.9 - Type 2 diabetes mellitus without complications
[2017-01-18] MEDS: NICOTINE POLACRILEX 2 MG GUM MT PRN ×3 (15:12→21:19)
[2017-01-18] MEDS: ROPINIROLE HCL 0.25 MG TAB PO SCH (21:17)
[2017-01-18] MEDS: QUETIAPINE FUMARATE 100 MG TAB PO SCH (21:17)
[2017-01-18 21:24] VITALS: BP 129/88; PULSE 125
[2017-01-19 06:37] VITALS: BP_SYST 124; BP_SYST 136; BP_SYST 144; BP_DIAS 86; BP_DIAS 89; BP_DIAS 97; PULSE 79; PULSE 86; PULSE 93; TEMP 36.6
[2017-01-19] MEDS: METFORMIN HCL 850 MG TAB PO SCH ×2 (08:23→17:24)
[2017-01-19] MEDS: CARBAMAZEPINE 200 MG TAB PO SCH ×2 (08:24→21:20)
[2017-01-19] MEDS: CLONIDINE HCL 0.1 MG TAB PO SCH ×2 (08:24→21:20)
[2017-01-19] MEDS: NICOTINE 21 MG/24 HR TDSY EXT SCH (08:24)
[2017-01-19] MEDS: HALOPERIDOL 5 MG TAB PO SCH ×2 (08:24→17:24)
[2017-01-19] MEDS: NICOTINE POLACRILEX 2 MG GUM MT PRN ×4 (10:00→18:08)
[2017-01-19] MEDS: HALOPERIDOL 5 MG TAB PO PRN (10:37)
[2017-01-19 13:28] VITALS: BP 139/94; PULSE 100
--- NOTE | 2017-01-19 13:44 | Psychiatric Progress Notes ---
Progress Note Date of Service Jan 19, 2017. Interval History 31 yo male with schizoaffective disorder, admitted voluntarily on 01/09 with acute psychosis in the setting of not taking his meds. Chief Complaint "Pretty good". Subjective Patient was seen & assessed interval progress reviewed with Treatment Team. Staff report he continues to improve, has been able to attend groups, but remains easily overstimulated, often wearing earplugs on the unit due to complaints of noise. On my assessment, he states that he feels better and is hoping to go home, stating there are no problems at all with his fiance, despite a difficult family meeting yesterday where she expressed multiple concerns. Unfortunately, she never came in to visit as requested. He minimizes her concerns, stating that "things will be fine" when he goes home, but cannot give any indication as to how he will deal with her stressors. He says that he "just got emotional on the phone" when he was talking to her, and is not sure how things will be different when he returns home. He is willing to try and placed with a roommate to see how he handles stimulation. After our session, he approached the elementary school social worker, stating he was upset that he wasn't being discharged. He requested to call his mother, who he put on speakerphone. He told her he did not like the idea of having a roommate. He was offered a 72 hour notice, but did not respond. Sleep Information Total Hours of Sleep: 6.00 Meal Information Percent of Breakfast Consumed: 95 Percent of Lunch Consumed: 100 Percent of Dinner Consumed: 50 Mental Status Exam During interview pt is: alert and oriented, cooperative Appearance: appropriately dressed, appropriately groomed, other (appears older than his stated age.) Eye contact is: good Motor behavior is: steady gait & station Speech: normal in rate, rhythm & volume Affect: tearful (when talking about missing his children), euthymic Mood is: other ("improving." ) Thought process: concrete Thought content: other (denies feeling paranoid) Suicidal thought are: denied Homicidal thoughts are: denied Hallucinations: denies auditory (but does report hearing someone call Cristal' s name this morning. ), denies visual Cognition: other (impaired) Intelligence estimated to be: average Insight: fair Judgement: fair Impression Continues with slow progress, is calmer, less thought blocked, but still with paranoia. Has difficulty tolerating any noise or stimulation, so had not been participating in programming and spending a lot of time in room, but is now out more, interacting with others, and going to some groups. Quetiapine has been increased with addition of 100 mg. at 1400 to target evening decompensation. Still need a family meeting with his girlfriend with whom he lives. Continues to have episodes of tachycardia. Inpatient treatment indicated due to the severity of symptoms and risk for immediate decompensation and inability to function if discharged prematurely. We have not yet been able to involve his girlfriend, whom he lives with, and there are 2 young children in the home. His work schedule seems to have an impact on med compliance. Plan (1) Schizoaffective disorder, bipolar type - q15 minute observation checks - resume outpatient psychiatric medications of Tegretol XR 200mg hs, Seroquel 400mg hs, and wellbutrin sr 200mg am, - convert klonopin to 0.5mg prn bid anxiety - add Seroquel 50mg tid prn psychosis/agitation - fasting labs ordered for 01/10 for glucose and lipid - obtain collateral from family, - attempt to arrange family meeting with as appropriate - Group and milieu therapy and 1:1 interactions with staff - Coordinate with outpt providers and arrange aftercare including psychotherapy referral 01/10 - FLP WNL with exception of triglycerides 196 and glucose 103. Will need followed as an OP - Arrange family meeting 01/11 - Add seroquel 100 mg. 1400 - Arrange family meeting 01/12 - Recommend girlfriend visited and spend some time with him so that she can help us assess for improvement and how close he is to baseline. They would also benefit from a family meeting. - Continue quetiapine. He has only received one 50 mg as needed dose on . - His sister stated she does not think he will be ready to go back to work at the time of discharge, but he is stating he wants to return as soon as possible. This will require further assessment at the time of discharge, and he will need a return to work note. - Follow-up with Dr. Dean on 01/24/17. 6/2 - as patient not very accepting of prns, will add Haldol standing order BID for additional coverage at least until he is therapeutic on Tegretol. Appeared hypomanic in my interactions with him today. Can have Tegretol level in am with repeat CBC and lytes. If remains this labile may need to hold Wellbutrin until more stable. Could titrate Seroquel further, I'm unsure if related to his tachy--he is quite active due to hypomania. Will continue to monitor for evidence of withdrawal in differential--currently doesn't appear to have sweating, tremor, etc. 01/14 - tegretol level only 4, will increase Tegretol to BID and repeat level in 5 days. will d/c Wellbutrin for now as very labile mood (hypomania alternating with depression) not sleeping well and dose have dopaminergic effects (active hannah and paranoia). Will increase Haldol standing order this afternoon. Directed staff to not leaving cleaning personal alone with patient in his room due to safety/paranoia. Remains on MNPR. 01/15 -appears less restless today and received fewer prns following standing order Haldol. Will increase Seroquel to 500 mg this hs for residual symptoms. 01/16 - continue current medications. Arrange family meeting with girlfriend. Has been behaviorally appropriate, so we'll discontinue safety tray. 01/17 -continue current medications. Still needs meeting with girlfriend, ideally in person but may need to be on the phone due to her work schedule. 01/18-phone meeting with Cristal rosenthal, this morning. Addressing relationship issues. Both willing to have marriage counseling. Patient is willing to have therapist and correctional case manager. 01/19 - gabe was advised to come to the hospital and visit with patient for assistance in determining how close he is to baseline and her level of comfort with him returning home, but unfortunately she did not do this. We will discontinue his private room and placing with a roommate to determine how well he can tolerate being around others, as this will help us to determine how he will do with returning home and being around his girlfriend and the children; anticipate discharge tomorrow if this goes well. (2) Diabetes - continue outpatient Metformin reported at 500mg once a day, - monitor blood sugar 01/10 - Correct metformin to 850 mg. BID - Check BSG daily - monitor BP and clarify if any past/current h/o HTN and address as appropriate Discharge / Aftercare Planning Primary Care Physician: Name: Dr Matamoros Appointment Notes: As needed Psychiatrist: Name: [facility] - Dr Foote Phone Number: [phone] Date of Appointment: Jan 24, 2017 Time of Appointment: 9:30pm Therapist: Name: Nathan Tuttle Date of Appointment: Jan 30, 2017 Time of Appointment: 1pm Newspaper Distributor Supervisor: Name: jennie Antipsychotic Medications The patient is continuing 2 antipsychotics due to: a history of a minimum of 3 failed trials of monotherapy (LIST): see h&P Visit Code E&M Code: 41777 Inventory Assets Strengths: seeking treatment, "can look people in the eye and tell when people are being honest" Needs: acute stabilization of psychiatric condition, psychotherapy referral , resumption and/or adjustment of medication Risk Factors Assessment Male: Yes : Yes /single/: No Higher / Fall in social status: No Access to guns: No Health problems: Yes Mental Health Diagnoses: Yes Previous attempt: No Family history of suicide: No Previous psychiatric stay: Yes Hopelessness: Yes Smoker: Yes Protective Factors Assessment : Yes Responsible for young children: Yes Employed: Yes Data Vital Signs Last 24 Hrs: Date Time Temp Pulse Resp B/P (MAP) Pulse Ox O2 Delivery O2 Flow Rate FiO2 01/19/17 13:28 100 18 139/94 01/19/17 06:37 36.6 93 16 144/89 79 136/97 86 124/86 01/18/17 21:24 125 16 129/88 Meds Administered Last 24 Hrs: Meds Administered (Past 24Hrs) Medications (Trade) Dose Ordered Sig/Henry Route Start Time Stop Time Status Last Admin Dose Admin Benzocaine (Orajel 2% Oral Gel) 1 appln Q4H PRN MT 01/17/17 21:30 02/16/17 21:29 01/18/17 21:15 1 APPLN Ibuprofen (Motrin Tab) 600 mg Q8H PRN PO 01/17/17 21:30 02/16/17 21:29 01/17/17 22:07 600 MG Lab Results Last 24 Hrs: Last 24 Hours Test 01/19/17 07:44 01/19/17 08:16 Bedside Glucose 125 mg/dl Carbamazepine (Tegretol) Level 6.5 mcg/ml Problem Qualifiers (1) Diabetes: Diabetes mellitus type: type 2 Diabetes mellitus complication status: without complication Diabetes mellitus watermelon inspector insulin use: without residential use Qualified Codes: E11.9 - Type 2 diabetes mellitus without complications
[2017-01-19] MEDS: QUETIAPINE FUMARATE 100 MG TAB PO SCH (21:20)
[2017-01-19] MEDS: ROPINIROLE HCL 0.25 MG TAB PO SCH (21:20)
[2017-01-19 21:26] VITALS: BP 130/86; PULSE 109
[2017-01-20] MEDS: ACETAMINOPHEN 325 MG TAB PO PRN ×2 (03:01→07:12)
[2017-01-20] MEDS: BENZTROPINE MESYLATE 1 MG TAB PO PRN (03:12)
[2017-01-20 06:53] VITALS: BP_SYST 127; BP_SYST 138; BP_DIAS 88; BP_DIAS 95; PULSE 86; PULSE 96; TEMP 36.5
[2017-01-20] MEDS: NICOTINE POLACRILEX 2 MG GUM MT PRN ×2 (07:13→09:19)
[2017-01-20] MEDS: METFORMIN HCL 850 MG TAB PO SCH (08:51)
[2017-01-20] MEDS: HALOPERIDOL 5 MG TAB PO SCH ×2 (08:51→08:57)
[2017-01-20] MEDS: CLONIDINE HCL 0.1 MG TAB PO SCH (08:52)
[2017-01-20] MEDS: CARBAMAZEPINE 200 MG TAB PO SCH (08:52)
[2017-01-20] MEDS: NICOTINE 21 MG/24 HR TDSY EXT SCH (08:55)
[2017-01-20] MEDS ORDERED: QUET-115 PO (10:12)
[2017-01-20] MEDS ORDERED: Nicotine EXT (10:12)
[2017-01-20] MEDS ORDERED: TGR200 PO (10:12)
[2017-01-20] MEDS ORDERED: HALO10TA17 PO (10:12)
[2017-01-20] MEDS ORDERED: BENZ-88 PO (10:12)
[2017-01-20] MEDS ORDERED: CTP1 PO (10:12)
[2017-01-20] MEDS ORDERED: QUET1TAB20 PO (10:12)
--- NOTE | 2017-01-20 10:27 | Discharge Instructions ---
Discharge Information Report Includes Report will include the: Discharge Instructions & Summary Admission Admission Date / Time: January 09, 2017 at 02:35 Reason for Admission: Schizoaffective Disorder, Bipolar Type Discharge Discharge Diagnosis / Problem: Same Condition at Discharge: Good Discharge Goals Goal(s): Improve function, Improve disease control Activity Recommendations Activity Limitations: resume your previous activity . Instructions / Follow-Up Instructions / Follow-Up . SPECIAL CARE INSTRUCTIONS: 1. Follow through with your scheduled aftercare appointments. If unable to keep an appointment, please call to reschedule. 2. Take your medication only as prescribed. Medication should not be changed or stopped without the approval of your doctor. In the event of worsening symptoms or concerns about side effects, contact your doctor immediately. 3. Utilize new healthy coping skills, anger management skills, and stress management skills learned during your hospitalization. Journal feelings and process them with a support person. Identify stressors or situations that may result in relapse, deterioration or inappropriate behaviors and develop a plan to deal with those issues. 4. If your coping skills are ineffective and you are in crisis, contact your outpatient providers for direction. If unable to reach your providers, please call the CAN HELP LINE AT or go to the closest Emergency Room. 5. Avoid alcohol and un-prescribed drugs. 6. You have been provided with the Mental Health Advance Directives Pamphlet for your review. AFTERCARE APPOINTMENTS: * Please call your insurance company prior to your scheduled appointment to confirm your aftercare providers are covered. Take your insurance information to your appointments. . Discharge / Aftercare Planning Primary Care Physician: Name: Dr Matamoros Appointment Notes: As needed Psychiatrist: Name: [facility] - Dr Foote Phone Number: [phone] Date of Appointment: Jan 24, 2017 Time of Appointment: 9:30pm Therapist: Name Of Therapist: Nathan Tuttle Date of Appointment: Jan 30, 2017 Time of Appointment: 1pm Hairspring Vibrator: [facility] [place] App[place] Notes: They will call you at home to schedule . Follow-Up Care Plan for Follow-Up Care: Smoking cessation Counseling with your primary care doctor is strongly recommended. Also, we recommend that you discuss your blood sugars with your primary care doctor because your recent blood sugars have been a little above normal. Current Hospital Diet Patient's current hospital diet: Regular Diet Discharge Diet Recommended Diet: Regular Diet Procedures Procedures Performed: No Pending Studies Pending Studies at Discharge: No Medical Emergencies . Who to Call and When: Medical Emergencies: For questions or emergencies related to your hospital stay, please contact the Inpatient Behavioral Health Unit at [phone]. A outreach clinician is on-call 06/03 for the Behavioral Health Unit for emergencies At any time you feel your situation is an emergency, you may also call 911 immediately. . Non-Emergent Contact Non-Emergency issues call your: Primary Care Provider Call Non-Emergent contact if: you have any medication questions Advance Directives Existing Advance Directive: No Do You Have an Existing Mental: No Existing Living Will: No Existing Power of Chief Strategy Officer: No Advance Directives Info Given: To Pt/S.O. Advance Directives Reason: Declines as Mental Health Visit. Discharge Summary Admission HPI Per the Admitting provider: Brian has been admitted on a 201 voluntary commitment. He is a 31 year old male living with his and 2 children (6,11) and has h/o schizoaffective d/o bipolar type per pt. He is with thought blocking and limited speech and is limited in his answers to assessment questions, admitting at times that it hard to speak. He reports being off his medications for the past 2 or so weeks and would like to resume his medications. He endorsed some lightheadedness from his medications when taking them. He endorsed feeling lied to by his about her first love, our love. He endorsed ideas of reference. He denied A/V/T hallucinations. He denied paranoid thinking when inquired. He denied concerns abut faithfulness in the marriage and would not elaborate on his concerns in the marriage. He endorsed h/o manic episodes where don't sleep and do too much and mind races and states that is occurring. He also endorsed and exhibited depressive presentation. He denied SI or HI. He denied h/o suicidal behaviors or h/o SIB. When inquired about h/o aggressive behaviors in past 6 months he stated yes, but magazine writer could not obtain more information from him despite inquiring. Thought blocking appears to be limiting factor. psych meds are reported to be Tegeratol xr 200mg hs, wellbutrin sr 200mg am, klonopin 0.5mg hs, and seroquel 400mg hs, pt unable to confirm med list with magazine writer at time of assessment though. Pt is appearing to respond to internal sitimuli and endorsed AH to staff. Pt acting labile and erratic and paranoid and endorsed feeling scared to staff. Screaming at times. denied substance usage, besides recreational cannabis usage a few times year, denied knowing when last took since been awhile Hospital Course (1) Schizoaffective disorder, bipolar type - q15 minute observation checks - resume outpatient psychiatric medications of Tegretol XR 200mg hs, Seroquel 400mg hs, and wellbutrin sr 200mg am, - convert klonopin to 0.5mg prn bid anxiety - add Seroquel 50mg tid prn psychosis/agitation - fasting labs ordered for 01/10 for glucose and lipid - obtain collateral from family, - attempt to arrange family meeting with as appropriate - Group and milieu therapy and 1:1 interactions with staff - Coordinate with outpt providers and arrange aftercare including psychotherapy referral 01/10 - FLP WNL with exception of triglycerides 196 and glucose 103. Will need followed as an OP - Arrange family meeting 01/11 - Add seroquel 100 mg. 1400 - Arrange family meeting 01/12 - Recommend girlfriend visited and spend some time with him so that she can help us assess for improvement and how close he is to baseline. They would also benefit from a family meeting. - Continue quetiapine. He has only received one 50 mg as needed dose on . - His sister stated she does not think he will be ready to go back to work at the time of discharge, but he is stating he wants to return as soon as possible. This will require further assessment at the time of discharge, and he will need a return to work note. - Follow-up with Dr. Dean on 01/24/17. 6/ - as patient not very accepting of prns, will add Haldol standing order BID for additional coverage at least until he is therapeutic on Tegretol. Appeared hypomanic in my interactions with him today. Can have Tegretol level in am with repeat CBC and lytes. If remains this labile may need to hold Wellbutrin until more stable. Could titrate Seroquel further, I'm unsure if related to his tachy--he is quite active due to hypomania. Will continue to monitor for evidence of withdrawal in differential--currently doesn't appear to have sweating, tremor, etc. 01/14 - tegretol level only 4, will increase Tegretol to BID and repeat level in 5 days. will d/c Wellbutrin for now as very labile mood (hypomania alternating with depression) not sleeping well and dose have dopaminergic effects (active hannah and paranoia). Will increase Haldol standing order this afternoon. Directed staff to not leaving cleaning personal alone with patient in his room due to safety/paranoia. Remains on MNPR. 01/15 -appears less restless today and received fewer prns following standing order Haldol. Will increase Seroquel to 500 mg this hs for residual symptoms. 01/16 - continue current medications. Arrange family meeting with girlfriend. Has been behaviorally appropriate, so we'll discontinue safety tray. 01/17 -continue current medications. Still needs meeting with girlfriend, ideally in person but may need to be on the phone due to her work schedule. 01/18-phone meeting with Cristal rosenthal, this morning. Addressing relationship issues. Both willing to have marriage counseling. Patient is willing to have therapist and case management assistant. 01/19 - gabe was advised to come to the hospital and visit with patient for assistance in determining how close he is to baseline and her level of comfort with him returning home, but unfortunately she did not do this. We will discontinue his private room and placing with a roommate to determine how well he can tolerate being around others, as this will help us to determine how he will do with returning home and being around his girlfriend and the children; anticipate discharge tomorrow if this goes well. (2) Diabetes - continue outpatient Metformin reported at 500mg once a day, - monitor blood sugar 01/10 - Correct metformin to 850 mg. BID - Check BSG daily Risk Factors Assessment Male: Yes : Yes /single/: No Higher / Fall in social status: No Access to guns: No Health problems: Yes Mental Health Diagnoses: Yes Previous attempt: No Family history of suicide: No Previous psychiatric stay: Yes Hopelessness: Yes Smoker: Yes Protective Factors Assessment : Yes Responsible for young children: Yes Employed: Yes Day of Discharge Assessment The patient was seen in my office. On mental status examination the findings included a report of "good mood" and notes that he is feeling "stable" and "Confident." His affect is euthymic. No psychotic features are in evidence and he reports that the auditory hallucinations that were present at admission have resolved. He does, however, continue to have a few magical thoughts, such as "my dreams can come true, and so I feel that I can change the course of my life if I correct things in my dreams." He denies that he has any suicidal as well as any homicidal thoughts. He is future oriented and has a supportive family. The patient is able to correctly identify his medications and the purposes of each, and he is motivated to continue in treatment as an outpatient. Laboratory Test 01/08/17 22:45 01/09/17 00:00 01/10/17 07:20 01/14/17 08:05 White Blood Count 11.83 9.85 Red Blood Count 4.42 4.70 Hemoglobin 14.3 15.3 Hematocrit 41.2 43.6 Mean Corpuscular Volume 93.2 92.8 Mean Corpuscular Hemoglobin 32.4 32.6 Mean Corpuscular Hemoglobin Concent 34.7 35.1 RDW Standard Deviation 43.5 43.4 RDW Coefficient of Variation 12.7 12.6 Platelet Count 345 341 Mean Platelet Volume 9.6 9.6 Sodium Level 144 139 Potassium Level 3.4 4.0 Chloride Level 109 105 Carbon Dioxide Level 29 27 Anion Gap 6.0 7.0 Blood Urea Nitrogen 9 Creatinine 0.94 Est Creatinine Clear Calc Drug Dose 137.2 Estimated GFR () 123.0 Estimated GFR (Non- 106.1 BUN/Creatinine Ratio 9.6 Random Glucose 112 Calcium Level 8.7 Total Bilirubin 0.4 Direct Bilirubin < 0.1 Aspartate Amino Transferase (AST) 38 Alanine Aminotransferase (ALT) 54 Alkaline Phosphatase 80 Total Protein 7.1 Albumin 3.9 Thyroid Stimulating Hormone (TSH) 0.314 Salicylates Level 4.3 Acetaminophen Level 2 Ethyl Alcohol mg/dL < 3.0 Urine Opiates Screen NEG Urine Methadone, Qualitative NEG Urine Barbiturates NEG Urine Phencyclidine (PCP) Level NEG Ur Amphetamine/Methamphetamine NEG Urine MDE-amphetamine (MDEA) negative Ur Methylenedioxyamphetamine (MDA) negative MDMA (Ecstasy) Screen POS Methylenedioxymethamphetamine (MDMA negative Urine Benzodiazepines Screen NEG Urine Cocaine Metabolite NEG Urine Marijuana (THC) POS Urine Marijuana (THC Carboxy Acid) >2000 Fasting Glucose 103 Triglycerides Level 196 Cholesterol Level 124 HDL Cholesterol 51 LDL Cholesterol, Calculated 34 VLDL Cholesterol, Calculated 39 Cholesterol/HDL Ratio 2.4 Neutrophils (%) (Auto) 56.2 Lymphocytes (%) (Auto) 32.7 Monocytes (%) (Auto) 9.7 Eosinophils (%) (Auto) 0.8 Basophils (%) (Auto) 0.4 Neutrophils # (Auto) 5.53 Lymphocytes # (Auto) 3.22 Monocytes # (Auto) 0.96 Eosinophils # (Auto) 0.08 Basophils # (Auto) 0.04 Immature Granulocyte % (Auto) 0.2 Immature Granulocyte # (Auto) 0.02 Carbamazepine (Tegretol) Level 4.6 Test 01/19/17 07:44 01/19/17 08:16 01/20/17 07:54 POC Glucose 125 138 Carbamazepine (Tegretol) Level 6.5 Total Time Total Time Spent (min): Greater than 30 minutes Total Time Included: examination of the patient, medication reconciliation Tobacco Cessation at Discharge Smoking Status: Current Every Day Smoker FDA approved Prescription: nicotine replacement product Antipsychotic Meds Rationale On two antipsychotic medications because of demonstrated subtherapeutic response to a single antipsychotic medication, combined with a favorable response to quetiapine and haloperidol in combination. Recommend tapering and discontinuing Haldol on an outpatient basis provided ongoing stability. Problem Qualifiers (1) Diabetes: Diabetes mellitus type: type 2 Diabetes mellitus complication status: without complication Diabetes mellitus intermediate frame tender insulin use: without mcfp use Qualified Codes: E11.9 - Type 2 diabetes mellitus without complications
[2017-01-20] MEDS ORDERED: DESTROY THIS MEDICATION ONE (11:15)
== END 2017-01-20 10:45 | disposition home or self-care (01) | DRG 885 ==
LOC: C.EDB 21:35 → C.MHU 01-09 02:35
PROVIDERS: ADMIT Psychiatry & Neurology Psychiatry; ATTEND Psychiatry & Neurology Psychiatry
DX: F25.0 Schizoaffective disorder, bipolar type (principal); E11.9 Type 2 diabetes mellitus without complications; F17.210 Nicotine dependence, cigarettes, uncomplicated; Z81.8 Family history of other mental and behavioral disorders; Z91.14 Patient's other noncompliance with medication regimen; Z81.1 Family history of alcohol abuse and dependence; Z83.3 Family history of diabetes mellitus; Z79.899 Other long term (current) drug therapy; Z79.84 Long term (current) use of oral hypoglycemic drugs

== ENCOUNTER 2017-01-23 21:23 | Emergency (ER) | payer OTHER ==
[~2017-01-23] VITALS: Ht 170.2 cm; Wt 110.4 kg
[~2017-01-23 21:23] MED LIST changes: +BENZ-88 PO; -BUPR200T2 PO; -CARB1CAP8 PO; -CLON0.5T3 PO; +CTP1 PO; -DIPH25CA65 PO; -GLC/500 PO; +HALO10TA17 PO; +METF-383 PO; +Nicotine EXT; +QUET-115 PO; +ROPI0.5T15 PO; +TGR200 PO
[2017-01-23 21:42] VITALS: TEMP 37.6; Ht 170.2 cm; Wt 110.4 kg
[2017-01-23 22:29] LABS: ALT/SGPT 33 U/L (12-78); BLOOD UREA NITROGEN 8 mg/dl (7-18); BUN/CREATININE RATIO 7.3 (10-20); CALCIUM 9.2 mg/dl (8.5-10.1); CARBON DIOXIDE 22 mmol/L (21-32); CHLORIDE 107 mmol/L (98-107); GLUCOSE 136 mg/dl (70-99); SODIUM 142 mmol/L (136-145)
[2017-01-23 22:35] LABS: ALKALINE PHOSPHATASE 82 U/L (45-117)
[2017-01-23 22:40] LABS: BASO % 0.1 %; BASO ABS # 0.02 K/uL (0-0.2); COMPLETE YES; EOS % 0.1 %; HEMATOCRIT 44.2 % (42-52); IG% 0.2 %; LYMPH % 23.5 %; LYMPH ABS # 3.23 K/uL (1.2-3.4); MEAN CELL VOLUME 92.7 fL (80-100); MEAN CORPUSCULAR HEMOGLOBIN 31.4 pg (25-34); MEAN CORPUSCULAR HGB CONC 33.9 g/dl (32-36); MEAN PLATELET VOLUME 8.8 fL (7.4-10.4); MONO % 8.1 %; PLATELET COUNT 383 K/uL (130-400); RED BLOOD COUNT 4.77 M/uL (4.7-6.1); WHITE BLOOD COUNT 13.76 K/uL (4.8-10.8)
[2017-01-23 22:53] LABS: POTASSIUM 3.9 mmol/L (3.5-5.1)
[2017-01-23 22:58] LABS: AST/SGOT 20 U/L (15-37)
[2017-01-23] MEDS ORDERED: CLON0.5T3 PO (23:05)
[2017-01-23] MEDS ORDERED: BUPR200T2 PO (23:05)
[2017-01-23] MEDS ORDERED: DIPH25CA65 PO (23:05)
[2017-01-23] MEDS ORDERED: CARB200T PO (23:05)
[2017-01-24 00:17] LABS: URINE APPEARANCE CLEAR (CLEAR); URINE COLOR DK YELLOW; URINE NITRITE NEG (NEG); URINE SPECIFIC GRAVITY 1.029 (1.000-1.030); UROBILINOGEN NEG (NEG)
[2017-01-24 00:23] LABS: MANUAL MICROSCOPIC REQUIRED? NO; REVIEW REQ? NO; URINE BILIRUBIN NEG (NEG)
--- NOTE | 2017-01-24 00:39 | EMERGENCY ROOM VISIT NOTE ---
History Report prepared by Morales: Kimberly Marquez Under the Supervision of: Dr. Iglesia Shah D.O. First contact with patient: 21:29 Chief Complaint: MENTAL HEALTH EVALUATION Stated Complaint: MENTAL HEALTH History of Present Illness The patient is a 31 year old male who presents to the Emergency Room with complaints of worsening mental health problems starting MANAGER POKER. His mother called EMS because he had locked himself in his bathroom and was acting abnormally. He was discharged from the hospital 1 week ago. He denies any headache, chest pain , or SOB. He denies any SI or HI. He was stung by a bee earlier today. He states that he "needs to be relocated to [place] or [facility]" and that his fiancee is watching him despite her not being in the ER. Patient denies any other complaints physically although he is extremely difficult to talk to and does not follow a full conversation. Source of History: patient, nursing staff Onset: MANAGER POKER Position: other (mental health) Quality: other (problems) Timing: worsening Associated Symptoms: No headache, No chest pain, No SOB Note: Pt denies SI and HI. Review of Systems See HPI for pertinent positives & negatives. A total of 10 systems reviewed and were otherwise negative. Past Medical & Surgical Medical Problems: (1) Bipolar Disorder, Unspecified (2) Diab Malaika Wo Compl, Type Ii Or Unspec Type, Not Uncntrld (3) Diabetes (4) Schizoaffective disorder, bipolar type Surgical Problems: (1) Hx of cholecystectomy Family History Diabetes mellitus Hypertension Kidney disease Kidney stones Social History Smoking Status: Current Every Day Smoker Marital Status: Housing Status: lives with family Occupation Status: disabled Current/Historical Medications Scheduled Bupropion (Wellbutrin Sr), 200 MG PO DAILY Carbamazepine (Tegretol), 200 MG PO QPM Clonazepam (Klonopin), 0.5 MG PO HS Diphenhydramine Hcl (Benadryl Allergy), 50 MG PO HS Metformin Hcl (Glucophage), 850 MG PO BIDM Quetiapine Fumarate (Quetiapine Fumarate), 400 MG PO HS Ropinirole (Requip), 0.5 MG PO HS [Nicotine], 1 PATCH EXT QAM Scheduled PRN Benztropine Mesylate (Benztropine Mesylate), 1 MG PO BID PRN for EPS/akathasia Allergies Coded Allergies: No Known Allergies (Verified , 01/23/17) Physical Exam Vital Signs Date Time Temp Pulse Resp B/P (MAP) Pulse Ox O2 Delivery O2 Flow Rate FiO2 01/23/17 21:42 37.6 115 16 132/70 97 Room Air Physical Exam GENERAL: ambulating through the room, anxious, no acute distress EYE EXAM: normal conjunctiva OROPHARYNX: no exudate, no erythema, lips, buccal mucosa, and tongue normal and mucous membranes are moist NECK: supple, no nuchal rigidity, no adenopathy, non-tender LUNGS: Clear to auscultation. Normal chest wall mechanics HEART: no murmurs, S1 normal and S2 normal ABDOMEN: abdomen soft, non-tender, normo-active bowel sounds, no masses, no rebound or guarding. BACK: Back is symmetrical on inspection and there is no deformity, no midline tenderness, no CVA tenderness. SKIN: no rashes and no bruising UPPER EXTREMITIES: upper extremities are grossly normal. LOWER EXTREMITIES: No pitting edema. NEURO EXAM: awake, alert, oriented, following commands PSYCH: appears to be manic, disheveled, pacing around the room and paranoid, will state this is my gnosticism Medical Decision & Procedures Laboratory Results 01/23/17 22:26 Red Blood Count 4.77, Mean Corpuscular Volume 92.7, Mean Corpuscular Hemoglobin 31.4, Mean Corpuscular Hemoglobin Concent 33.9, Mean Platelet Volume 8.8, Neutrophils (%) (Auto) 68.0, Lymphocytes (%) (Auto) 23.5, Monocytes (%) (Auto) 8.1, Eosinophils (%) (Auto) 0.1, Basophils (%) (Auto) 0.1, Neutrophils # (Auto) 9.35, Lymphocytes # (Auto) 3.23, Monocytes # (Auto) 1.11, Eosinophils # (Auto) 0.02, Basophils # (Auto) 0.02 01/23/17 21:54 01/23/17 22:26 Test 01/23/17 21:54 01/23/17 22:26 01/24/17 00:00 Anion Gap 13.0 mmol/L (3-11) Est Creatinine Clear Calc Drug Dose 113.3 ml/min Estimated GFR () 101.7 Estimated GFR (Non- 87.7 BUN/Creatinine Ratio 7.3 (10-20) Bedside Glucose 135 mg/dl (70-99) Calcium Level 9.2 mg/dl (8.5-10.1) Total Bilirubin 0.4 mg/dl (0.2-1) Alanine Aminotransferase (ALT/SGPT) 33 U/L (12-78) Alkaline Phosphatase 82 U/L (45-117) Total Protein 7.9 gm/dl (6.4-8.2) Albumin 4.1 gm/dl (3.4-5.0) Thyroid Stimulating Hormone (TSH) 1.460 uIu/ml (0.300-4.500) Chemistry Specimen Hemolysis Ethyl Alcohol mg/dL < 3.0 mg/dl (0-3) White Blood Count 13.76 K/uL (4.8-10.8) Red Blood Count 4.77 M/uL (4.7-6.1) Hemoglobin 15.0 g/dL (14.0-18.0) Hematocrit 44.2 % (42-52) Mean Corpuscular Volume 92.7 fL (80-100) Mean Corpuscular Hemoglobin 31.4 pg (25-34) Mean Corpuscular Hemoglobin Concent 33.9 g/dl (32-36) Platelet Count 383 K/uL (130-400) Mean Platelet Volume 8.8 fL (7.4-10.4) Neutrophils (%) (Auto) 68.0 % Lymphocytes (%) (Auto) 23.5 % Monocytes (%) (Auto) 8.1 % Eosinophils (%) (Auto) 0.1 % Basophils (%) (Auto) 0.1 % Neutrophils # (Auto) 9.35 K/uL (1.4-6.5) Lymphocytes # (Auto) 3.23 K/uL (1.2-3.4) Monocytes # (Auto) 1.11 K/uL (0.11-0.59) Eosinophils # (Auto) 0.02 K/uL (0-0.5) Basophils # (Auto) 0.02 K/uL (0-0.2) RDW Standard Deviation 42.4 fL (36.4-46.3) RDW Coefficient of Variation 12.5 % (11.5-14.5) Immature Granulocyte % (Auto) 0.2 % Immature Granulocyte # (Auto) 0.03 K/uL (0.00-0.02) Direct Bilirubin < 0.1 mg/dl (0-0.2) Aspartate Amino Transf (AST/SGOT) 20 U/L (15-37) Urine Color DK YELLOW Urine Appearance CLEAR (CLEAR) Urine pH 6.0 (4.5-7.5) Urine Specific [place] 1.029 (1.000-1.030) Urine Protein NEG (NEG) Urine Glucose (UA) TRACE (NEG) Urine Ketones TRACE (NEG) Urine Occult Blood NEG (NEG) Urine Nitrite NEG (NEG) Urine Bilirubin NEG (NEG) Urine Urobilinogen NEG (NEG) Urine Leukocyte Esterase NEG (NEG) Urine Opiates Screen NEG (NEG) Urine Methadone, Qualitative NEG (NEG) Urine Barbiturates NEG (NEG) Urine Phencyclidine (PCP) Level NEG (NEG) Ur Amphetamine/Methamphetamine NEG (NEG) MDMA (Ecstasy) Screen NEG (NEG) Urine Benzodiazepines Screen NEG (NEG) Urine Cocaine Metabolite NEG (NEG) Urine Marijuana (THC) POS (NEG) Laboratory results per my review. ED Course ED COURSE: Vital signs were reviewed and showed tachycardia. The patients medical record was reviewed The above diagnostic studies were performed and reviewed. ED treatments and interventions as stated above. 2133: The patient was evaluated in room A5. A complete history and physical examination was performed. 2354: I reevaluated the patient. He is going to provide a urine sample. [facility] is being contacted. 0045: [facility] has arrived and will see the patient. 0048: Upon reevaluation, the patient is stable, awaiting [facility] evaluation.I discussed my findings with the patient and he understands and agrees with the treatment plan. Based on the patients age, coexisting illnesses, exam and lab findings the decision to treat as an inpatient was made. The patient remained stable while under my care. The patient will receive inpatient mental health care. 0049: I reevaluated the patient. [facility] is at bedside evaluating the patient. 0115: A bed search is being performed on a 302. Medical Decision Differential diagnosis: Etiologies such as mood disorder, infection, hypoglycemia, electrolyte abnormalities, cardiac sources, intracerebral event, toxicologic, neurologic, as well as others were entertained. Medication Reconciliation: I attest that I have personally reviewed the patient' s current medication list. Blood pressure screening: Patient was found to have normal blood pressure on screening and does not require follow-up. Patient is a 31-year-old male who is schizoaffective and had a recent admission and discharge from psychiatry. He denies any other complaints. 302 petition by family member as patient is unable to sign himself and was 201. Patient was evaluated by Noreen from psychiatry. 302 signed by myself as the patient has no insight and is pacing around the room intermittently clapping/snapping and making random statements/thoughts. Labs show a leukocytosis of 13,000, BMP along with LFTs, bilirubin and TSH were unremarkable. UA was negative. Tylenol was positive. Alcohol was negative. Patient does appear to be clearly manic with no insight pacing around the room making random statements. Patient has been pleasant. Bed search was started and patient was signed out to Dr. Quiñonez at 0200. Impression Primary Impression: Mood disorder Additional Impression: Manic state Scribe Attestation The scribe's documentation has been prepared under my direction and personally reviewed by me in its entirety. I confirm that the note above accurately reflects all work, treatment, procedures, and medical decision making performed by me. Departure Information Dispostion Mental Health Acute Care Referrals Omi Noguera D.O. (PCP) Patient Instructions [facility] Problem Qualifiers
[2017-01-24 00:40] LABS: BENZODIAZEPINE, URINE NEG (NEG); COCAINE,URINE NEG (NEG); PHENCYCLIDINE, URINE NEG (NEG)
--- NOTE | 2017-01-24 06:36 | EMERGENCY ROOM VISIT NOTE ---
ED Visit Note 31 yr old male with psychiatric history arrives for acute psychosis and ismael. [address] Shah and medically cleared. Signed out to me. No issues overnight other than manic requiring no sedation. Accepted to the [facility] for further evaluation.
[2017-01-24 10:40] VITALS: BP 132/70; PULSE 115; O2SAT 97
== END 2017-01-24 10:40 ==
LOC: EDBD 21:23 → C.EDA 21:26
DX: F30.9 Manic episode, unspecified (principal); F23 Brief psychotic disorder; E11.9 Type 2 diabetes mellitus without complications; D72.829 Elevated white blood cell count, unspecified; F17.200 Nicotine dependence, unspecified, uncomplicated; Z90.49 Acquired absence of other specified parts of digestive tract; Z83.3 Family history of diabetes mellitus; Z82.49 Family history of ischemic heart disease and other diseases of the circulatory system; Z84.1 Family history of disorders of kidney and ureter; Z79.84 Long term (current) use of oral hypoglycemic drugs; Z79.899 Other long term (current) drug therapy

== ENCOUNTER 2017-05-09 22:14 | Emergency (ER) | payer OTHER ==
[~2017-05-09] VITALS: Ht 172.7 cm; Wt 97.7 kg
[~2017-05-09 22:14] MED LIST changes: -BENZ-88 PO; +BUPR200T2 PO; +CARB200T PO; +CGN1X PO; +CLON0.5T3 PO; -CTP1 PO; +DIPH25CA65 PO; -HALO10TA17 PO; -QUET-115 PO; -QUET1TAB20 PO; +SRQ400 PO; -TGR200 PO
[2017-05-09] MEDS ORDERED: SODIUM CHLORIDE 0.9% 1000ML 1,000 ML IV STA (22:27)
[2017-05-09 22:30] VITALS: TEMP 37.3; O2SAT 98; Ht 172.7 cm; Wt 97.7 kg
[2017-05-09] MEDS ORDERED: PROP10TA7 PO (22:45)
[2017-05-09] MEDS ORDERED: LTHSR/300 PO (22:45)
[2017-05-09] MEDS ORDERED: HALO10TA17 PO (22:45)
[2017-05-09] MEDS ORDERED: CLON1TAB3 PO (22:45)
[2017-05-09] MEDS ORDERED: HALO5TAB PO (22:45)
[2017-05-09] MEDS ORDERED: LITH1TAB PO (22:45)
--- NOTE | 2017-05-09 22:58 | DIAGNOSTIC IMAGING REPORT ---
CHEST ONE VIEW PORTABLE CLINICAL HISTORY: 32 years-old Male presenting with AMS. TECHNIQUE: Portable upright AP view of the chest was obtained. COMPARISON: 07/31/2012. FINDINGS: Cardiomediastinal silhouette normal. Lungs and pleural spaces clear. Osseous structures normal. Upper abdomen normal. IMPRESSION: 1. No acute cardiopulmonary disease. Electronically signed by: Tex Jones M.D. 05/09/2017 10:57 PM Dictated Date/Time: 05/09/2017 10:56 PM
[2017-05-09 23:10] LABS: BASO % 0.3 %; BASO ABS # 0.03 K/uL (0-0.2); COMPLETE YES; EOS % 1.3 %; HEMATOCRIT 44.7 % (42-52); IG% 0.2 %; LYMPH % 26.4 %; LYMPH ABS # 2.86 K/uL (1.2-3.4); MEAN CELL VOLUME 93.1 fL (80-100); MEAN CORPUSCULAR HEMOGLOBIN 31.5 pg (25-34); MEAN CORPUSCULAR HGB CONC 33.8 g/dl (32-36); MEAN PLATELET VOLUME 9.5 fL (7.4-10.4); MONO % 8.5 %; NEUT % 63.3 %; PLATELET COUNT 352 K/uL (130-400); WHITE BLOOD COUNT 10.83 K/uL (4.8-10.8)
--- NOTE | 2017-05-09 23:19 | EMERGENCY ROOM VISIT NOTE ---
History Report prepared by Morales: Kathleen Rizvi Under the Supervision of: Dr. Zaid Meredith M.D. First contact with patient: 22:12 Chief Complaint: LETHARGIC Stated Complaint: LETHERGIC, History of Present Illness The patient is a 32 year old male with a past medical history of hypertension who presents to the ED with a cc of an episode of lethargy beginning this evening. The patient states that he thinks he fell. Positive loss of consciousness. Negative for pain, alcohol use, drug use, tobacco use, cough, fever, and chills. Reviewing his medications, the patient is on Haldol, Bridgeton, Klonopin, Propranolol, and Benadryl. He has multiple doubles of medication that were filled at different dates. Source of History: patient Onset: this evening Position: other (global) Quality: other (global) Timing: other (episode) Associated Symptoms: + LOC, No fevers, No chills, No cough Note: Negative for pain, alcohol use, drug use, and tobacco use. Review of Systems See HPI for pertinent positives and negatives. A total of ten systems were reviewed and were otherwise negative. Past Medical & Surgical Medical Problems: (1) Bipolar Disorder, Unspecified (2) Diab Malaika Wo Compl, Type Ii Or Unspec Type, Not Uncntrld (3) Diabetes (4) Schizoaffective disorder, bipolar type Surgical Problems: (1) Hx of cholecystectomy Family History Diabetes mellitus Hypertension Kidney disease Kidney stones Social History Smoking Status: Current Every Day Smoker Alcohol Use: none Drug Use: none Marital Status: Housing Status: lives with family Occupation Status: disabled Current/Historical Medications Scheduled Clonazepam (Klonopin), 0.5 MG PO BID Haloperidol (Haldol), 5 MG PO BID Haloperidol (Haldol), 10 MG PO BID Bridgeton Carbonate (Bridgeton Carbonate), 300 MG PO BID Bridgeton Carbonate Ext Rel (Lithobid Ext Rel), 450 MG PO HS Propranolol (Inderal), 10 MG PO TID Allergies Coded Allergies: No Known Allergies (Verified , 05/09/17) Physical Exam Vital Signs Date Time Temp Pulse Resp B/P (MAP) Pulse Ox O2 Delivery O2 Flow Rate FiO2 05/10/17 01:16 65 16 103/67 98 05/09/17 23:33 76 20 97/61 96 Room Air 05/09/17 22:30 37.3 67 12 104/70 97 Room Air 05/09/17 22:30 98 Room Air 05/09/17 22:24 71 Physical Exam GENERAL: Awake, alert, well-appearing, NAD HENT: Normocephalic, atraumatic. EYES: Conjunctival injection. Sclera non-icteric. PERRL, EOM intact. NECK: Supple. No nuchal rigidity. FROM. RESPIRATORY: CTAB, no rhonchi, wheezing, crackles CARDIAC: RRR, no MRG ABDOMEN: Soft, NTND, BS+ MSK: No chest wall TTP, no LE edema, no signs of trauma. Denies pain to palpation in head, neck, extremities, chest, abdomen, and back. NEURO: GCS 15, CN 2-12 intact, moves all 4s on command, slow to respond but responds appropriately, good UE and LE strength, no deficits SKIN: No rash or jaundice noted. Medical Decision & Procedures ER Provider Diagnostic Interpretation: Radiology results as stated below per my review and radiologist interpretation: CHEST ONE VIEW PORTABLE CLINICAL HISTORY: 32 years-old Male presenting with AMS. TECHNIQUE: Portable upright AP view of the chest was obtained. COMPARISON: 07/31/2012. FINDINGS: Cardiomediastinal silhouette normal. Lungs and pleural spaces clear. Osseous structures normal. Upper abdomen normal. IMPRESSION: 1. No acute cardiopulmonary disease. Electronically signed by: Tex Jones M.D. 05/09/2017 10:57 PM Dictated Date/Time: 05/09/2017 10:[address] HEAD: No intracranial hemorrhage, skull fracture, or other acute intracranial abnormality. Radiologist: Basia Ramirez MD Study ready at 23:20 and initial results transmitted at 23:59. Laboratory Results 05/09/17 22:55 Red Blood Count 4.80, Mean Corpuscular Volume 93.1, Mean Corpuscular Hemoglobin 31.5, Mean Corpuscular Hemoglobin Concent 33.8, Mean Platelet Volume 9.5, Neutrophils (%) (Auto) 63.3, Lymphocytes (%) (Auto) 26.4, Monocytes (%) (Auto) 8.5, Eosinophils (%) (Auto) 1.3, Basophils (%) (Auto) 0.3, Neutrophils # (Auto) 6.86, Lymphocytes # (Auto) 2.86, Monocytes # (Auto) 0.92, Eosinophils # (Auto) 0.14, Basophils # (Auto) 0.03 05/09/17 22:55 Test 05/09/17 22:55 05/09/17 23:03 White Blood Count 10.83 K/uL (4.8-10.8) Red Blood Count 4.80 M/uL (4.7-6.1) Hemoglobin 15.1 g/dL (14.0-18.0) Hematocrit 44.7 % (42-52) Mean Corpuscular Volume 93.1 fL (80-100) Mean Corpuscular Hemoglobin 31.5 pg (25-34) Mean Corpuscular Hemoglobin Concent 33.8 g/dl (32-36) Platelet Count 352 K/uL (130-400) Mean Platelet Volume 9.5 fL (7.4-10.4) Neutrophils (%) (Auto) 63.3 % Lymphocytes (%) (Auto) 26.4 % Monocytes (%) (Auto) 8.5 % Eosinophils (%) (Auto) 1.3 % Basophils (%) (Auto) 0.3 % Neutrophils # (Auto) 6.86 K/uL (1.4-6.5) Lymphocytes # (Auto) 2.86 K/uL (1.2-3.4) Monocytes # (Auto) 0.92 K/uL (0.11-0.59) Eosinophils # (Auto) 0.14 K/uL (0-0.5) Basophils # (Auto) 0.03 K/uL (0-0.2) RDW Standard Deviation 43.4 fL (36.4-46.3) RDW Coefficient of Variation 12.7 % (11.5-14.5) Immature Granulocyte % (Auto) 0.2 % Immature Granulocyte # (Auto) 0.02 K/uL (0.00-0.02) Anion Gap 8.0 mmol/L (3-11) Est Creatinine Clear Calc Drug Dose 117.9 ml/min Estimated GFR () 113.3 Estimated GFR (Non- 97.8 BUN/Creatinine Ratio 5.6 (10-20) Calcium Level 9.2 mg/dl (8.5-10.1) Total Bilirubin 0.7 mg/dl (0.2-1) Direct Bilirubin 0.2 mg/dl (0-0.2) Aspartate Amino Transf (AST/SGOT) 12 U/L (15-37) Alanine Aminotransferase (ALT/SGPT) 24 U/L (12-78) Alkaline Phosphatase 80 U/L (45-117) Total Protein 6.6 gm/dl (6.4-8.2) Albumin 3.6 gm/dl (3.4-5.0) Lipase 197 U/L (73-393) Salicylates Level < 1.7 mg/dl (2.8-20) Acetaminophen Level < 2 ug/ml (10-30) Bridgeton Level 1.2 mMOL/L (0.6-1.2) Ethyl Alcohol mg/dL < 3.0 mg/dl (0-3) Laboratory results reviewed by me Medications Administered Medications (Trade) Dose Ordered Sig/Henry Route Start Time Stop Time Status Last Admin Dose Admin Sodium Chloride 1,000 ml @ 999 mls/hr Q1H1M STAT IV 05/09/17 22:27 05/09/17 23:27 DC 05/09/17 22:27 999 MLS/HR Sodium Chloride 1,000 ml @ 999 mls/hr Q1H1M STAT IV 05/10/17 00:10 05/10/17 01:10 DC 05/10/17 00:10 999 MLS/HR ECG Indication: other (lethargic) Rate (beats per minute): 68 Rhythm: normal sinus Findings: other (normal intervals, no STS changes or T wave inversions) ED Course 2222: The patient was evaluated in room B12B. A complete history and physical exam was performed. 0049: I reevaluated the patient. Discussed results and discharge instructions: he verbalized understanding and agreement. The patient is ready for discharge. Medical Decision Differential diagnosis: Etiologies such as metabolic, infection, hypoglycemia, electrolyte abnormalities , cardiac sources, intracerebral event, toxicologic, neurologic, as well as others were entertained. Patient was seen and evaluated at the bedside. There is concern that the patient had been lethargic with a questionable syncopal episode. No history of seizure. No reported shaking. Patient had a normal blood glucose. On exam patient was Anatuss through the GCS of 15. Patient was able to follow commands had no weakness. Patient had blood work that was completed which was fairly unremarkable. Patient had a chest x-ray and CT of the brain. Patient's CT brain was negative. CXR clear. EKG was fairly unremarkable. Patient had negative levels for salicylate Tylenol and alcohol. Patient had a therapeutic lithium level. Patient's CT of the brain was negative. Unsure as to whether or not patient truly has syncope. Patient however is fairly young with few comorbidities slipped likely to be cardiac in nature with a fairly normal EKG without any acute complaints of chest pain shortness of breath. Patient has a normal neurologic exam symptomatic treatment and control. Patient had a negative CT of the head. Patient does not complain of any shortness of breath and he has a clear chest x-ray. Patient vital signs are stable. Patient is feeling improved. Patient was able tolerate by mouth and ambulated without difficulty without any acute complaints. I did talk to the patient and stated that he should be taking his medications as prescribed as the patient does have multiple bottles the different dates with different amounts of pills in them. Patient agreed and stated he would follow-up with his PCP physician as well as with the physician that prescribed his medications. Patient was given strict follow-up, discharge, return precautions. Patient agreed with plan of care patient was safely discharged home. Impression Primary Impression: Syncope Additional Impression: Dehydration Scribe Attestation The scribe's documentation has been prepared under my direction and personally reviewed by me in its entirety. I confirm that the note above accurately reflects all work, treatment, procedures, and medical decision making performed by me. Departure Information Dispostion Home / Self-Care Referrals Omi Noguera D.O. (PCP) Forms HOME CARE DOCUMENTATION FORM, IMPORTANT VISIT INFORMATION, WORK / SCHOOL INSTRUCTIONS Patient Instructions My [facility], Syncope, Syncope Causes Additional Instructions Please return to the emergency department if you have worsening or recurrent symptoms not amenable to at-home treatment. Please call for a follow-up appointment with her primary care physician. Please take your medications as prescribed. If you have other concerns and/or complaints please feel free to also call your primary care physician's office or return the ED for further evaluation, management, and treatment. You were found to have an elevated blood pressure today (>120 sytolic or >90 diastolic). Per medicare guidelines, you need to follow up with this blood pressure screening with your Primary Care Physician (PCP). For a new PCP call [phone]. You have been examined and treated today on an emergency basis only. This is not a substitute for, or an effort to provide, complete comprehensive medical care. It is impossible to recognize and treat all injuries or illnesses in a single emergency department visit. It is therefore important that you follow up closely with [facility]. Call as soon as possible for an appointment. Thank you for your time and consideration. I look forward to speaking with you again soon. Please don't hesitate to call us if you have any questions. Problem Qualifiers Primary Impression: Syncope Syncope type: unspecified Qualified Codes: R55 - Syncope and collapse
[2017-05-09 23:29] LABS: BUN/CREATININE RATIO 5.6 (10-20); CALCIUM 9.2 mg/dl (8.5-10.1); POTASSIUM 3.7 mmol/L (3.5-5.1)
[2017-05-10] MEDS ORDERED: SODIUM CHLORIDE 0.9% 1000ML 1,000 ML IV STA (00:10)
[2017-05-10 00:13] LABS: ACETAMINOPHEN < 2 ug/ml (10-30); LITHIUM 1.2 mMOL/L (0.6-1.2)
[2017-05-10 01:16] VITALS: BP 103/67; PULSE 65; O2SAT 98
--- NOTE | 2017-05-10 06:40 | DIAGNOSTIC IMAGING REPORT ---
CT HEAD WITHOUT CONTRAST (CT) CLINICAL HISTORY: Head trauma. Head pain. Lethargy. COMPARISON STUDY: No previous studies for comparison. TECHNIQUE: Axial CT of the brain is performed from the vertex to the skull base. IV contrast was not administered for this examination. A dose lowering technique was utilized adhering to the principles of ALARA. CT DOSE: 679.75 mGycm FINDINGS: There is a tiny hyperdense focus at the level of the roof of the third ventricle. This could represent a tiny colloid cyst, or unusual choroid calcification at this level. There is no CT evidence of acute cortical infarction. There is no evidence of midline shift. There is no evidence of acute hemorrhage. There is no evidence of pathologic ventricular dilatation. There is no evidence of acute sinusitis This report was called due to the change from the pulmonary reading. IMPRESSION: 1. Tiny hyperdense focus at the level of the roof of the third ventricle. This could represent a tiny colloid cyst, or an usual choroid calcification at this level. 2. No evidence of acute intracranial injury. Electronically signed by: Elliott Light M.D. 05/10/2017 6:38 AM Dictated Date/Time: 05/10/2017 6:32 AM
== END 2017-05-10 01:17 | disposition home or self-care (01) ==
LOC: EDBD 22:14 → C.EDB 22:16
DX: R55 Syncope and collapse (principal); E86.0 Dehydration; I10 Essential (primary) hypertension; E11.9 Type 2 diabetes mellitus without complications; F31.9 Bipolar disorder, unspecified; F25.9 Schizoaffective disorder, unspecified; Z90.49 Acquired absence of other specified parts of digestive tract; F17.200 Nicotine dependence, unspecified, uncomplicated; Z79.899 Other long term (current) drug therapy; Z83.3 Family history of diabetes mellitus; Z82.49 Family history of ischemic heart disease and other diseases of the circulatory system; Z84.1 Family history of disorders of kidney and ureter

== ENCOUNTER → 2017-08-02 | Outpatient (CLI) | payer OTHER ==
[~2017-08-02] MED LIST changes: -BUPR200T2 PO; -CARB200T PO; -CGN1X PO; -CLON0.5T3 PO; +CLON1TAB3 PO; -DIPH25CA65 PO; +HALO10TA17 PO; +HALO5TAB PO; +LITH1TAB PO; +LTHSR/300 PO; -METF-383 PO; -Nicotine EXT; +PROP10TA7 PO; -ROPI0.5T15 PO; -SRQ400 PO
[2017-08-02 10:01] LABS: BASO % 0.3 %; BASO ABS # 0.04 K/uL (0-0.2); COMPLETE YES; EOS % 0.7 %; HEMATOCRIT 45.5 % (42-52); IG% 0.3 %; LYMPH % 21.5 %; LYMPH ABS # 2.54 K/uL (1.2-3.4); MEAN CELL VOLUME 92.7 fL (80-100); MEAN CORPUSCULAR HEMOGLOBIN 33.2 pg (25-34); MEAN CORPUSCULAR HGB CONC 35.8 g/dl (32-36); MEAN PLATELET VOLUME 9.9 fL (7.4-10.4); MONO % 7.1 %; NEUT % 70.1 %; PLATELET COUNT 331 K/uL (130-400); RED BLOOD COUNT 4.91 M/uL (4.7-6.1); WHITE BLOOD COUNT 11.81 K/uL (4.8-10.8)
[2017-08-02 10:22] LABS: ALT/SGPT 30 U/L (12-78); BLOOD UREA NITROGEN 7 mg/dl (7-18); BUN/CREATININE RATIO 7.6 (10-20); CARBON DIOXIDE 28 mmol/L (21-32); CHLORIDE 104 mmol/L (98-107); CHOLESTEROL 131 mg/dl (0-200); GLUCOSE 101 mg/dl (70-99); POTASSIUM 3.7 mmol/L (3.5-5.1); SODIUM 138 mmol/L (136-145); TRIGLYCERIDES 130 mg/dl (0-150); VERY LOW DENSITY LIPOPROT CALC 26 mg/dl
[2017-08-02 10:24] LABS: ESTIMATED AVERAGE GLUCOSE 105 mg/dl; HA1C FLAG Normal (Normal)
[2017-08-02 10:32] LABS: ALB/GLOB RATIO 1.1 (0.9-2); ALKALINE PHOSPHATASE 81 U/L (45-117); AST/SGOT 18 U/L (15-37); CHOLESTEROL/HDL RATIO 2.4; HDL CHOLESTEROL 54 mg/dl; LDL CHOLESTEROL CALCULATED 51 mg/dl
== END | disposition home or self-care (01) ==
LOC: C.LAB 09:18
PROVIDERS: ATTEND Physician Assistant
DX: Z51.81 Encounter for therapeutic drug level monitoring (principal); Z79.899 Other long term (current) drug therapy

== ENCOUNTER 2020-12-04 09:08 | Inpatient (IN) ==
[2020-12-04] MEDS ORDERED: ACETAMINOPHEN 500 MG TAB ONE (10:30)
[2020-12-04] MEDS ORDERED: KETOROLAC TROMETHAMINE 15 MG/ML VIAL IV STA (10:47)
[2020-12-04] MEDS ORDERED: ALBUTEROL HFA 8 GM INHALER INH ONE (10:47)
[2020-12-04] MEDS: SODIUM CHLORIDE 0.9% 1000ML 2,000 ML IV ONE ×2 (11:00→11:30)
[2020-12-04] MEDS ORDERED: ACETAMINOPHEN 500 MG TAB PO STA (11:11)
[2020-12-04 11:30] LABS: Basophils # (auto) 0.01 K/uL (0-0.2); Basophils % (auto) 0.1 %; Hematocrit (blood only) 44.6 % (42-52); Hemoglobin 15.6 g/dL (14.0-18.0); Immature Granulocytes # (auto) 0.02 K/uL (0.00-0.02); Immature Granulocytes % (auto) 0.3 %; Lymphocytes # (auto) 0.97 K/uL (1.2-3.4); Lymphocytes % (auto) 12.6 %; Mean Corpuscular Hemoglobin 30.3 pg (25-34); Mean Corpuscular Volume 86.6 fL (80-100); Monocytes % (auto) 5.2 %; Neutrophils # (auto) 6.29 K/uL (1.4-6.5); Neutrophils % (auto) 81.8 %; RDW Coefficient of Variation 13.3 % (11.5-14.5); RDW Standard Deviation 42.5 fL (36.4-46.3); Red Blood Count 5.15 M/uL (4.7-6.1); White Blood Count 7.69 K/uL (4.8-10.8)
[2020-12-04] MEDS: dexAMETHasone**PF** 10 MG/ML VIAL IV ONE (11:32)
[2020-12-04 11:33] LABS: INR 1.1 (0.9-1.1); Partial Thromboplastin Ratio 1.1; Partial Thromboplastin Time 29.2 Seconds (21.0-31.0); Prothrombin Time 10.7 Seconds (9.0-12.0)
[2020-12-04] MEDS: guaiFENesin 600 MG TABCR PO STA (11:34)
--- NOTE | 2020-12-04 11:42 | XRay Report ---
XR chest 1V portable CLINICAL HISTORY: Shortness of breath FEVER COMPARISON STUDY: 05/09/2017 FINDINGS: The cardiac and mediastinal contours remain stable. There are moderately extensive bilatera l pulmonary airspace opacities suspicious for multifocal pneumonia.[ IMPRESSION: Bilateral multifocal airspace opacities consistent with a multifocal pneumonia. ACT 112: Negative or not required by law. Electronically signed by: Elliott Light M.D. 12/04/2020 11:40 AM
[2020-12-04 11:44] LABS: Alanine Aminotransferase 24 U/L (12-78); Albumin Globulin Ratio 0.7 (0.9-2); Albumin Level 3.5 gm/dl (3.4-5.0); Alkaline Phosphatase 81 U/L (45-117); Aspartate Aminotransferase 24 U/L (15-37); BUN Creatinine Ratio 8.9 (10-20); Bilirubin,Total 0.5 mg/dl (0.2-1); Blood Urea Nitrogen 9 mg/dl (7-18); Calcium 8.8 mg/dl (8.5-10.1); Carbon Dioxide 23 mmol/L (21-32); Chloride 103 mmol/L (98-107); Creatinine Clr Calc Pharmacy 119.4 ml/min; Est GFR (African American) 103.4; Est GFR (Non-African American) 89.2; Globulin 5.1 gm/dl (2.5-4.0); Glucose 310 mg/dl (70-99); Potassium 3.6 mmol/L (3.5-5.1); Sodium 132 mmol/L (136-145); Total Protein 8.6 gm/dl (6.4-8.2); Troponin I < 0.015 ng/ml (0-0.045)
[2020-12-04 12:00] LABS: Beta-Hydroxybutyrate 4.32 mg/dl (0.2-2.81)
[2020-12-04 12:11] LABS: Influenza A virus by PCR Negative (Neg); Influenza B virus by PCR Negative (Neg); RSV by PCR Negative (Neg)
[2020-12-04 12:26] LABS: SARS CoV2 RNA(COVID-19) InHosp POSITIVE (Negative)
--- NOTE | 2020-12-04 12:56 | Emergency Department Note ---
Impression & Plan Pneumonia due to COVID-19 virus, Hypoxia, Dehydration, Hyperglycemia ED Provider Note NAME: ANTONY CAMARGO AGE: 35 SEX: M ARRIVES VIA: Walk-In INFORMANT: Patient, ED PROVIDER(S): Vikash Jimenez MD CHIEF COMPLAINT: SOB, fevers PLAN: Disposition: Admit MEDICAL DECISION MAKING: The patient is a pleasant 35-year-old gentleman with a past medical history of bipolar disorder on lithium, NIDDM 2 who presents to the emergency department with worsening cough, congestion body aches and fevers evolving over the past week worsening today. He denies nausea or vomiting or diarrhea. He does admit he is probably dehydrated as he has had poor appetite. He denies any known COVID-19 exposures and denies any family members in his home with similar symptoms. He reports some shortness of breath but denies chest pain or abdominal pain. On arrival the patient is uncomfortable, febrile to 39.6, heart rate in the 120s, tachypneic in the 30s found to be hypoxic to 85% on room air improved with 2 L nasal cannula. Blood pressure remained stable. On exam patient appears clinically dry. Lungs with scattered wheezes and rhonchi bilaterally. EKG without overt acute ischemia. Chest x-ray does show multifocal pneumonia bilaterally. WBC, H/H within normal limits. Chemistry without metabolic acidosis. Electrolytes LFTs unremarkable. Lactate 1.5, within normal limits. Troponin negative/undetectable. Glucose was in the 300s but again no metabolic acidosis. Beta hydroxybutyrate marginally elevated at 4.3. Procalcitonin not sign ificantly elevated. COVID-19 PCR was positive. Influenza and RSV PCR were negative. Thus, patient's pneumonia is secondary to COVID-19. He was given dexamethasone given his hypoxia and respiratory distress. Upon re-evaluation patient was somewhat improved after 2L NSS with subsequent defervescence and improved HR. However, given hypoxia in setting of Covid-19 PNA reasonable to proceed with admission for further management. The patient is agreement with this. Case was discussed with Dr. Lee, [facility] hospitalist, who will evaluate the patient for admission. Triage Nursing notes reviewed and agree them. Prior medical records reviewed Vital Signs: reviewed and remarkable for tachycardia and hypoxia. Differential diagnosis: Sepsis, UTI, pneumonia, metabolic, electrolyte abnormalities, cardiac sources, intracerebral event, toxicologic, neurologic, as well as other pathologies. ER treatment provided: See below. Diagnostics interpreted by me: ECG: Sinus tachycardia, 123 bpm, no ectopy, nonspecific ST abnormality, no overt ST elevation or depression. Cardiac Monitoring: An order for continuous cardiac monitoring was placed and demonstrated Sinus tachycardia, 123 bpm, no ectopy. Laboratory studies: See below Imaging studies: See below Consultation(s): Case was discussed with Dr. Lee, [facility] hospitalist, who will evaluate the patient for admission. HPI: The patient is a pleasant 35-year-old gentleman with a past medical history of bipolar disorder on lithium, NIDDM 2 who presents to the emergency department with worsening cough, congestion body aches and fevers evolving over the past week worsening today. He denies nausea or vomiting or diarrhea. He does admit he is probably dehydrated as he has had poor appetite. He denies any known COVID-19 exposures and denies any family members in his home with similar symptoms. He reports some shortness of breath but denies chest pain or abdomin al pain. ROS: See above HPI for pertinent positives & negatives. A total of 10 systems reviewed and were otherwise negative. PAST MEDICAL HISTORY:See Below PAST SURGICAL HISTORY:See Below FAMILY HISTORY:See Below SOCIAL HISTORY:See Below HOME MEDICATIONS:See Below ALLERGIES:See Below VITALS:See Below PHYSICAL EXAMINATION: GENERAL: Awake, alert, ill-appearing, in no distress HENT: Normocephalic, atraumatic. Oropharynx with dry mucous membranes and otherwise unremarkable. EYES: Normal conjunctiva. Sclera non-icteric. NECK: Supple. No nuchal rigidity. FROM. No JVD. RESPIRATORY: Scattered wheeze and rhonchi, tachypneic without significant increased work of breathing and improved with supplemental O2. CARDIAC: Tachycardic rate, normal rhythm. Extremities warm and well perfused. Pulses equal. ABDOMEN: Soft, non-distended. No tenderness to palpation. No rebound or guarding. No masses. RECTAL: Deferred. MUSCULOSKELETAL: Chest examination reveals no tenderness. The back is symmetrical on inspection without obvious abnormality. There is no CVA tendernes s to palpation. No joint edema. LOWER EXTREMITIES: Calves are equal size bilaterally and non-tender. No edema. No discoloration. NEURO: Normal sensorium. No sensory or motor deficits noted. SKIN: No rash or jaundice noted. ED COURSE: Critical Care: I have personally spent greater than 35 minutes of critical care time in the direct management of this patient. This includes bedside care, interpretation of diagnostic studies, and testing, discussion with consultants, patient, and family members, and other required patient management activities. This 35 minutes is in excess of all separately billable procedures. Vikash Jimenez MD Past Med/Surg History Medical History Diabetes Schizoaffective disorder, bipolar type Surgical History No pertinent past surgical history Family History Father Heart disease Social History Smoking Status: Former smoker Second Hand Exposure: No; Hx Alcohol Use: No Hx Substance Use: No Preferred Language: [place] Communication Ability: Effective Experimental Assembler Required: No Beliefs That Will Affect Care: None Current Living Situation: Family Feels Safe at Home: Yes Assistive Devices: None Allergies Allergies Allergy/AdvReac Type Severity Reaction Status Date / Time No Known Allergies Allergy Verified 12/04/20 10:57 Home Meds Home Medications Medication Instructions Recorded Confirmed bupropion HCl 100 mg PO QAM 05/31/19 12/04/20 clonazepam 1.5 mg PO HS 05/31/19 12/04/20 lithium carbonate 600 mg PO HS 05/31/19 12/04/20 quetiapine 100 mg PO HS 05/31/19 12/04/20 quetiapine 200 mg PO HS 05/31/19 12/04/20 ropinirole 0.5 mg PO HS 05/31/19 12/04/20 metformin 500 mg PO PM 12/04/20 12/04/20 Results & Data (ED) Vital Signs Vital Signs - 24 hr 12/04/20 09:16 12/04/20 10:47 12/04/20 10:48 Temperature 39.6 C H Temperature Source Temporal Artery Scan Pulse Rate 123 H 123 H 121 H Pulse Rate from SpO2 Sensor 124 H 121 H Respiratory Rate 20 25 H 22 Respiratory Effort / Characteristics Non-Labored Respiratory Depth Normal Blood Pressure 126/80 110/82 Blood Pressure Mean 95 91 Pulse Oximetry 90 84 L 83 L Oxygen Delivery Method Room Air Room Air Room Air Oxygen Flow Rate Sepsis Recent Fever Within 48 Hours Yes Sepsis New/Unexplained Change in Mental Status N/A Sepsis Action Taken by Nursing No Action Required Oxygen Flow Rate - Titration Pulse Oximetry Post Tiitration 12/04/20 10:50 12/04/20 11:00 12/04/20 11:01 Temperature Temperature Source Pulse Rate 118 H 119 H Pulse Rate from SpO2 Sensor 119 H 119 H Respiratory Rate 13 36 H Respiratory Effort / Characteristics Respiratory Depth Blood Pressure 95/56 L Blood Pressure Mean 69 Pulse Oximetry 83 L 93 93 Oxygen Delivery Method Room Air Nasal Cannula Nasal Cannula Nasal Cannula Oxygen Flow Rate 0 4 4 Sepsis Recent Fever Within 48 Hours Sepsis New/Unexplained Change in Mental Status Sepsis Action Taken by Nursing Oxygen Flow Rate - Titration 3 Pulse Oximetry Post Tiitration 89 L 12/04/20 11:07 12/04/20 11:30 12/04/20 11:37 Temperature 37.7 C H Temperature Source Oral Pulse Rate Pulse Rate from SpO2 Sensor 112 H Respiratory Rate Respiratory Effort / Characteristics Respiratory Depth Blood Pressure 121/85 Blood Pressure Mean 97 Pulse Oximetry 96 95 Oxygen Delivery Method Nasal Cannula Nasal Cannula Oxygen Flow Rate 4 3 Sepsis Recent Fever Within 48 Hours Sepsis New/Unexplained Change in Mental Status Sepsis Action Taken by Nursing Oxygen Flow Rate - Titration Pulse Oximetry Post Tiitration 12/04/20 12:00 12/04/20 12:30 12/04/20 12:37 Temperature Temperature Source Pulse Rate 111 H 108 H Pulse Rate from SpO2 Sensor 111 H 108 H Respiratory Rate 33 H 30 H Respiratory Effort / Characteristics Respiratory Depth Blood Pressure 125/84 126/80 Blood Pressure Mean 97 95 Pulse Oximetry 96 96 96 Oxygen Delivery Method Nasal Cannula Oxygen Flow Rate 2 Sepsis Recent Fever Within 48 Hours Sepsis New/Unexplained Change in Mental Status Sepsis Action Taken by Nursing Oxygen Flow Rate - Titration Pulse Oximetry Post Tiitration 12/04/20 12:38 12/04/20 13:00 Temperature 37.9 C H Temperature Source Oral Pulse Rate 108 H Pulse Rate from SpO2 Sensor 107 H Respiratory Rate 20 Respiratory Effort / Characteristics Respiratory Depth Blood Pressure 138/80 Blood Pressure Mean 99 Pulse Oximetry 94 Oxygen Delivery Method Oxygen Flow Rate Sepsis Recent Fever Within 48 Hours Sepsis New/Unexplained Change in Mental Status Sepsis Action Taken by Nursing Oxygen Flow Rate - Titration Pulse Oximetry Post Tiitration Laboratory Data Attestation: I reviewed the patient's lab results. Result diagrams: 12/04/20 10:45 12/04/20 10:45 Lab Results 12/04/20 12/04/20 12/04/20 Range/Units 10:45 10:45 10:45 WBC 7.69 (4.8-10.8) K/uL RBC 5.15 (4.7-6.1) M/uL Hgb 15.6 (14.0-18.0) g/dL Hct 44.6 (42-52) % MCV 86.6 (80-100) fL MCH 30.3 (25-34) pg MCHC 35.0 (32-36) g/dL RDW Std Deviation 42.5 (36.4-46.3) fL RDW Coeff of Marcello 13.3 (11.5-14.5) % Plt Count (130-400) K/uL MPV (7.4-10.4) fL Immature Gran % (Auto) 0.3 % Neut % (Auto) 81.8 % Lymph % (Auto) 12.6 % [place]ball % (Auto) 5.2 % Eos % (Auto) 0.0 % Baso % (Auto) 0.1 % Neut # (Auto) 6.29 (1.4-6.5) K/uL Lymph # (Auto) 0.97 L (1.2-3.4) K/uL [place]ball # (Auto) 0.40 (0.11-0.59) K/uL Eos # (Auto) 0.00 (0-0.5) K/uL Baso # (Auto) 0.01 (0-0.2) K/uL Immature Gran # (Auto) 0.02 (0.00-0.02) K/uL PT 10.7 (9.0-12.0) Seconds INR 1.1 (0.9-1.1) APTT 29.2 (21.0-31.0) Seconds PTT Ratio 1.1 Sodium 132 L (136-145) mmol/L Potassium 3.6 (3.5-5.1) mmol/L Chloride 103 (98-107) mmol/L Carbon Dioxide 23 (21-32) mmol/L Anion Gap 6.0 (3-11) BUN 9 (7-18) mg/dl Creatinine 1.06 (0.6-1.4) mg/dl Est Cr Clr Drug Dosing 119.4 ml/min Est GFR ( Amer) 103.4 Est GFR (Non-Af Amer) 89.2 BUN/Creatinine Ratio 8.9 L (10-20) Glucose 310 H* (70-99) mg/dl POC Glucose (70-99) mg/dl Osmolality (280-300) mOsm/kg Lactate (0.4-2.0) mmol/L Calcium 8.8 (8.5-10.1) mg/dl Magnesium 2.0 (1.8-2.4) mg/dl Total Bilirubin 0.5 (0.2-1) mg/dl AST 24 (15-37) U/L ALT 24 (12-78) U/L Alkaline Phosphatase 81 (45-117) U/L Troponin I < 0.015 (0-0.045) ng/ml Total Protein 8.6 H (6.4-8.2) gm/dl Albumin 3.5 (3.4-5.0) gm/dl Globulin 5.1 H (2.5-4.0) gm/dl Albumin/Globulin Ratio 0.7 L (0.9-2) Beta-Hydroxybutyric Acd 4.32 H (0.2-2.81) mg/dl Procalcitonin (0-0.5) ng/ml [place] (0.6-1.2) mmol/L COVID-19 Eval Order SARS-CoV-2 (PCR) (Negative) Influenza Type A (PCR) (Neg) Influenza Type B (PCR) (Neg) RSV (RT-PCR) (Neg) 12/04/20 12/04/20 12/04/20 Range/Units 10:46 10:46 10:46 WBC (4.8-10.8) K/uL RBC (4.7-6.1) M/uL Hgb (14.0-18.0) g/dL Hct (42-52) % MCV (80-100) fL MCH (25-34) pg MCHC (32-36) g/dL RDW Std Deviation (36.4-46.3) fL RDW Coeff of Marcello (11.5-14.5) % Plt Count (130-400) K/uL MPV (7.4-10.4) fL Immature Gran % (Auto) % Neut % (Auto) % Lymph % (Auto) % [place] % (Auto) % Eos % (Auto) % Baso % (Auto) % Neut # (Auto) (1.4-6.5) K/uL Lymph # (Auto) (1.2-3.4) K/uL [place] # (Auto) (0.11-0.59) K/uL Eos # (Auto) (0-0.5) K/uL Baso # (Auto) (0-0.2) K/uL Immature Gran # (Auto) (0.00-0.02) K/uL PT (9.0-12.0) Seconds INR (0.9-1.1) APTT (21.0-31.0) Seconds PTT Ratio Sodium (136-145) mmol/L Potassium (3.5-5.1) mmol/L Chloride (98-107) mmol/L Carbon Dioxide (21-32) mmol/L Anion Gap (3-11) BUN (7-18) mg/dl Creatinine (0.6-1.4) mg/dl Est Cr Clr Drug Dosing ml/min Est GFR ( Amer) Est GFR (Non-Af Amer) BUN/Creatinine Ratio (10-20) Glucose (70-99) mg/dl POC Glucose (70-99) mg/dl Osmolality 290 (280-300) mOsm/kg Lactate (0.4-2.0) mmol/L Calcium (8.5-10.1) mg/dl Magnesium (1.8-2.4) mg/dl Total Bilirubin (0.2-1) mg/dl AST (15-37) U/L ALT (12-78) U/L Alkaline Phosphatase (45-117) U/L Troponin I (0-0.045) ng/ml Total Protein (6.4-8.2) gm/dl Albumin (3.4-5.0) gm/dl Globulin (2.5-4.0) gm/dl Albumin/Globulin Ratio (0.9-2) Beta-Hydroxybutyric Acd (0.2-2.81) mg/dl Procalcitonin 0.15 (0-0.5) ng/ml [place] 0.8 (0.6-1.2) mmol/L COVID-19 Eval Order SARS-CoV-2 (PCR) (Negative) Influenza Type A (PCR) (Neg) Influenza Type B (PCR) (Neg) RSV (RT-PCR) (Neg) 12/04/20 12/04/20 12/04/20 Range/Units 11:01 11:01 11:12 WBC (4.8-10.8) K/uL RBC (4.7-6.1) M/uL Hgb (14.0-18.0) g/dL Hct (42-52) % MCV (80-100) fL MCH (25-34) pg MCHC (32-36) g/dL RDW Std Deviation (36.4-46.3) fL RDW Coeff of Marcello (11.5-14.5) % Plt Count (130-400) K/uL MPV (7.4-10.4) fL Immature Gran % (Auto) % Neut % (Auto) % Lymph % (Auto) % [place] % (Auto) % Eos % (Auto) % Baso % (Auto) % Neut # (Auto) (1.4-6.5) K/uL Lymph # (Auto) (1.2-3.4) K/uL [place] # (Auto) (0.11-0.59) K/uL Eos # (Auto) (0-0.5) K/uL Baso # (Auto) (0-0.2) K/uL Immature Gran # (Auto) (0.00-0.02) K/uL PT (9.0-12.0) Seconds INR (0.9-1.1) APTT (21.0-31.0) Seconds PTT Ratio Sodium (136-145) mmol/L Potassium (3.5-5.1) mmol/L Chloride (98-107) mmol/L Carbon Dioxide (21-32) mmol/L Anion Gap (3-11) BUN (7-18) mg/dl Creatinine (0.6-1.4) mg/dl Est Cr Clr Drug Dosing ml/min Est GFR ( Amer) Est GFR (Non-Af Amer) BUN/Creatinine Ratio (10-20) Glucose (70-99) mg/dl POC Glucose (70-99) mg/dl Osmolality (280-300) mOsm/kg Lactate 1.5 (0.4-2.0) mmol/L Calcium (8.5-10.1) mg/dl Magnesium (1.8-2.4) mg/dl Total Bilirubin (0.2-1) mg/dl AST (15-37) U/L ALT (12-78) U/L Alkaline Phosphatase (45-117) U/L Troponin I (0-0.045) ng/ml Total Protein (6.4-8.2) gm/dl Albumin (3.4-5.0) gm/dl Globulin (2.5-4.0) gm/dl Albumin/Globulin Ratio (0.9-2) Beta-Hydroxybutyric Acd (0.2-2.81) mg/dl Procalcitonin (0-0.5) ng/ml [place] (0.6-1.2) mmol/L COVID-19 Eval Order CovFluRsv at [facility] SARS-CoV-2 (PCR) POSITIVE A* (Negative) Influenza Type A (PCR) Negative (Neg) Influenza Type B (PCR) Negative (Neg) RSV (RT-PCR) Negative (Neg) 12/04/20 Range/Units 12:40 WBC (4.8-10.8) K/uL RBC (4.7-6.1) M/uL Hgb (14.0-18.0) g/dL Hct (42-52) % MCV (80-100) fL MCH (25-34) pg MCHC (32-36) g/dL RDW Std Deviation (36.4-46.3) fL RDW Coeff of Marcello (11.5-14.5) % Plt Count (130-400) K/uL MPV (7.4-10.4) fL Immature Gran % (Auto) % Neut % (Auto) % Lymph % (Auto) % [place] % (Auto) % Eos % (Auto) % Baso % (Auto) % Neut # (Auto) (1.4-6.5) K/uL Lymph # (Auto) (1.2-3.4) K/uL [place] # (Auto) (0.11-0.59) K/uL Eos # (Auto) (0-0.5) K/uL Baso # (Auto) (0-0.2) K/uL Immature Gran # (Auto) (0.00-0.02) K/uL PT (9.0-12.0) Seconds INR (0.9-1.1) APTT (21.0-31.0) Seconds PTT Ratio Sodium (136-145) mmol/L Potassium (3.5-5.1) mmol/L Chloride (98-107) mmol/L Carbon Dioxide (21-32) mmol/L Anion Gap (3-11) BUN (7-18) mg/dl Creatinine (0.6-1.4) mg/dl Est Cr Clr Drug Dosing ml/min Est GFR ( Amer) Est GFR (Non-Af Amer) BUN/Creatinine Ratio (10-20) Glucose (70-99) mg/dl POC Glucose 280 H (70-99) mg/dl Osmolality (280-300) mOsm/kg Lactate (0.4-2.0) mmol/L Calcium (8.5-10.1) mg/dl Magnesium (1.8-2.4) mg/dl Total Bilirubin (0.2-1) mg/dl AST (15-37) U/L ALT (12-78) U/L Alkaline Phosphatase (45-117) U/L Troponin I (0-0.045) ng/ml Total Protein (6.4-8.2) gm/dl Albumin (3.4-5.0) gm/dl Globulin (2.5-4.0) gm/dl Albumin/Globulin Ratio (0.9-2) Beta-Hydroxybutyric Acd (0.2-2.81) mg/dl Procalcitonin (0-0.5) ng/ml [place] (0.6-1.2) mmol/L COVID-19 Eval Order SARS-CoV-2 (PCR) (Negative) Influenza Type A (PCR) (Neg) Influenza Type B (PCR) (Neg) RSV (RT-PCR) (Neg) Administered Medications Acetaminophen (Acetaminophen 325 Mg Tab) 650 mg PO Q4H PRN PRN Reason: pain/fever Stop: 01/03/21 16:55 Last Admin: 12/04/20 21:28 Dose: 650 mg Documented by: [id number] Clonazepam (Clonazepam 0.5 Mg Tab) 1.5 mg PO HS MANUEL Stop: 01/03/21 20:59 Last Admin: 12/04/20 21:26 Dose: 1.5 mg Documented by: [id number] Enoxaparin Sodium (Enoxaparin Inj 60 Mg/0.6 Ml Syr) 60 mg SQ Q12H [facility] Stop: 01/03/21 20:59 Last Admin: 12/04/20 21:27 Dose: 60 mg Documented by: [id number] Insulin Aspart (Insulin Aspart 100 Units/Ml 3 Ml Pen) 0 units SC ACHS [facility]UEL Stop: 01/03/21 16:55 Last Admin: 12/04/20 21:35 Dose: 7 units Documented by: [id number] Cosigned by: [id number] Admin: 12/04/20 18:27 Dose: 22 units Documented by: [id number] Cosigned by: [id number] [place] Carbonate ([place] Carbonate 300 Mg Tab) 600 mg PO [facility] Stop: 01/03/21 20:59 Last Admin: 12/04/20 21:26 Dose: 600 mg Documented by: [id number] Quetiapine Fumarate (Quetiapine Fumarate 100 Mg Tablet) 100 mg PO [facility] Stop: 01/03/21 20:59 Last Admin: 12/04/20 21:26 Dose: 100 mg Documented by: [id number] Quetiapine Fumarate (Quetiapine Fumarate 200 Mg Tab) 200 mg PO [facility] Stop: 01/03/21 20:59 Last Admin: 12/04/20 21:26 Dose: 200 mg Documented by: [id number] Ropinirole HCl (Ropinirole Hcl 0.25 Mg Tablet) 0.5 mg PO [facility] Stop: 01/03/21 20:59 Last Admin: 12/04/20 21:26 Dose: 0.5 mg Documented by: [id number] Discontinued Medications Acetaminophen (Acetaminophen 500 Mg Tab) Confirm Administered Dose 1,000 mg .ROUTE .STK-MED ONE Stop: 12/04/20 10:31 Last Admin: 12/04/20 10:31 Dose: 1,000 mg Documented by: [id number] Acetaminophen (Acetaminophen 500 Mg Tab) 1,000 mg PO NOW STA Stop: 12/04/20 11:12 Last Admin: 12/04/20 11:11 Dose: Not Given Documented by: [id number] Albuterol (Albuterol Hfa 8 Gm Inhaler) 2 puffs INH NOW ONE Stop: 12/04/20 10:48 Last Admin: 12/04/20 11:34 Dose: 2 puffs Documented by: [id number] Dexamethasone Sodium Phosphate (DexamethasonePf 10 Mg/Ml Vial) 10 mg IV NOW ONE Stop: 12/04/20 11:07 Last Admin: 12/04/20 11:32 Dose: 10 mg Documented by: [id number] Admin: 12/04/20 11:32 Dose: 10 mg Documented by: [id number] Guaifenesin (Guaifenesin 600 Mg Tabcr) 600 mg PO NOW STA Stop: 12/04/20 10:48 Last Admin: 12/04/20 11:34 Dose: 600 mg Documented by: [id number] Admin: 12/04/20 11:34 Dose: 600 mg Documented by: [id number] Sodium Chloride (Nss 1000ml) 2,000 mls @ 999 mls/hr IV .Q2H1M ONE Stop: 12/04/20 12:47 Last Infusion: 12/04/20 12:48 Dose: 0 mls/hr Documented by: [id number] Admin: 12/04/20 11:30 Dose: 999 mls/hr Documented by: [id number] Infusion: 12/04/20 11:30 Dose: 999 mls/hr Documented by: [id number] Admin: 12/04/20 11:00 Dose: 999 mls/hr Documented by: [id number] Insulin Human NPH (Insulin Human Nph) 40 units SC NOW ONE Stop: 12/04/20 17:31 Last Admin: 12/04/20 18:27 Dose: 40 units Documented by: [id number] Cosigned by: [id number] Ioversol (Optiray 350 500ml) 120 ml IV ONCE ONE Stop: 12/04/20 14:15 Last Admin: 12/04/20 14:15 Dose: 120 ml Documented by: [id number] Ketorolac Tromethamine (Ketorolac Tromethamine 15 Mg/Ml Vial) 15 mg IV NOW STA Stop: 12/04/20 10:48 Last Admin: 12/04/20 11:30 Dose: 15 mg Documented by: [id number] Imaging Data Radiologist's Impression: Chest X-Ray 12/04/20 09:19 XR chest 1V portable CLINICAL HISTORY: Shortness of breath FEVER COMPARISON STUDY: 05/09/2017 FINDINGS: The cardiac and mediastinal contours remain stable. There are moderately extensive bilateral pulmonary airspace opacities suspicious for multifocal pneumonia.[ IMPRESSION: Bilateral multifocal airspace opacities consistent with a multifocal pneumonia. ACT 112: Negative or not required by law. Electronically signed by: Elliott Light M.D. 12/04/2020 11:40 AM Discharge Plan Visit Data Chief Complaint: Shortness of Breath/Dyspnea Stated Complaint: COUGH,SOB ED Provider: Vikash Jimenez Discharge Problem: Pneumonia due to COVID-19 virus, Hypoxia, Dehydration, Hyperglycemia Patient Disposition: Admitted As Inpatient Discharge Instructions Interventions: ED Discharge Assessment Last Done: 12/04/20 16:17
--- NOTE | 2020-12-04 13:16 | History & Physical Report ---
Date of Service December 04, 2020 Assessment & Plan (1) Pneumonia due to COVID-19 virus: First symptoms on 11/26/2020. - Dexamethasone 6 mg PO daily x 10 days total (End date: 12/13/2020) - Not a candidate for plasma or remdesivir - Not a candidate for tocilizumab at this time (could still get this up to 72 hours from now if he decompensates). - Defer abx at this time given hx of consistent with Covid pneumonia and procalcitonin is negative on admission. - Supportive care with supplemental O2, albuterol PRN, cough medication, & Tylenol. - Encouraged self-proning as able (2) Diabetes: Last A1c was 5.3% in 2017. - Hold metformin while inpatient - Sliding scale insulin - Repeat A1c - Did consult glycemic pharmacy since he will start steroids. Can consider NPH dose while on steroids. (3) Schizoaffective disorder, bipolar type: Calm and without any present symptoms. No acute needs. EKG in the ED showed QTc of 486. [place] level at goal on admission. - Continue home lithium, bupropion, quetiapine, and clonazepam - Monitor QTc & avoid any QTc-prolonging medications. (4) DVT prophylaxis: Lovenox 60 mg SQ Q12h -> Intermediate dosing per hospital policy and supported by recent literature - Will get CTA chest for PE; Well's score is moderate (HR, immobility in last 3 days, & hypercoagulable state given Covid) which had a 16% chance of PE in an ED group. History of Present Illness Primary Care Provider: Omi Noguera, 35yo M w/ hx of bipolar disorder and DM who presents with Covid. He reports that he started feeling bad last (11/26/2020). His initial symptoms were a migraine headache and fevers. His headache lasted until this pa monday, but his fevers have continued. He also reports cough that has persisted throughout this time. He denies any loss of taste or smell which is why he was unaware he had Covid. He has two daughters (15 and 11) whom he has been in contact with, but otherwise has not had any recent contacts other than going grocery shopping, etc. He denies that they have been sick. This morning, he awoke and had worsening coughing and shortness of breath which prompted his coming to the ED. He reports that he feels much better after the fluids and breathing treatment in the ED and no longer feels particularly short of breath. Allergies Allergy/AdvReac Type Severity Reaction Status Date / Time No Known Allergies Allergy Verified 12/04/20 10:57 Home Medications Medication Instructions Recorded Confirmed Type bupropion HCl 100 mg PO QAM 05/31/19 12/04/20 History clonazepam 1.5 mg PO HS 05/31/19 12/04/20 History lithium carbonate 600 mg PO HS 05/31/19 12/04/20 History quetiapine 100 mg PO HS 05/31/19 12/04/20 History quetiapine 200 mg PO HS 05/31/19 12/04/20 History ropinirole 0.5 mg PO HS 05/31/19 12/04/20 History metformin 500 mg PO PM 12/04/20 12/04/20 History Past Med/Surg History Medical History (Updated 12/04/20 @ 13:11 by Elijah Lee MD) Diabetes Schizoaffective disorder, bipolar type Surgical History No pertinent past surgical history Family History (Updated 12/04/20 @ 13:54 by Elijah Lee MD) Father Heart disease Social History Smoking Status: Never smoker Hx Alcohol Use: No Hx Substance Use: No Preferred Language: Nepali Communication Ability: Effective Feels Safe at Home: Yes Review of Systems Review of Systems: All systems reviewed & are unremarkable except as noted in HPI & below Physical Exam Constitutional: WD/WN, vitals as above Eyes: EOM intact bilaterally; no conjunctival abnormality ENMT: external ear and nose normal, oropharynx normal Neck: trachea midline, no thyromegaly normal visual inspection Respiratory: + labored breathing, + cough and + tachypneic; no respiratory distress Auscultation: + diminished lung sounds Cardiovascular: RRR, no murmur, no edema Gastrointestinal (Abdomen): Inspection/Auscultation: abdomen normal to inspection; abdomen not distended Musculoskeletal: no cyanosis or clubbing, extremities motor strength 5/5 Skin: no rashes, warm and dry Neurologic: moves all extremities and awake Psychiatric: Orientation: alert, oriented to person and cooperative Results & Data Results & Data ([facility]) Vital Signs (Past 12 Hours) Vital Signs Temp Pulse Resp BP Pulse Ox 12/04/20 13:00 108 H 20 138/80 94 12/04/20 12:38 37.9 C H 12/04/20 12:37 96 12/04/20 12:30 108 H 30 H 126/80 96 12/04/20 12:00 111 H 33 H 125/84 96 12/04/20 11:37 37.7 C H 95 12/04/20 11:30 121/85 96 12/04/20 11:01 119 H 36 H 93 12/04/20 11:00 118 H 13 95/56 L 93 12/04/20 10:50 83 L 12/04/20 10:48 121 H 22 83 L 12/04/20 10:47 123 H 25 H 110/82 84 L 12/04/20 09:16 39.6 C H 123 H 20 126/80 90 Code Status & VTE Plan VTE Prophylaxis Plan VTE Prophylaxis will be ordered: Yes PG Care Time/CCT Total # of Minutes Spent Total Time Spent with Patient: Total time spent is greater than 50% in coordination of care (as documented) at patient's floor/unit and/or counseling patient: Coding Level of Care Code 77949 Initial Inpt Care Lvl 3 Diagnoses Pneumonia due to COVID-19 virus U07.1; J12.82 Diabetes E11.9 Schizoaffective disorder, bipolar type F25.0 DVT prophylaxis Z29.9
[2020-12-04] MEDS ORDERED: OPTIRAY 350 500ml IV ONE (14:14)
--- NOTE | 2020-12-04 14:33 | CT Scan Report ---
CT ANGIOGRAM OF THE CHEST CLINICAL HISTORY: Cough and shortness of breath. COMPARISON STUDY: Chest x-ray dated 2320 TECHNIQUE: Following the IV administration of 120 mL of Optiray, CT angiogram of the thorax was perfo rmed from the thoracic inlet to the lung bases utilizing the pulmonary embolus protocol. Images are r eviewed in the axial, sagittal, and coronal planes. IV contrast was administered without complication . MIP imaging was performed. A dose lowering technique was utilized adhering to the principles of [place] CAROLINE. CT DOSE: 478.15 mGycm FINDINGS: There is hepatic steatosis. There is mild mediastinal and hilar lymphadenopathy, likely reactive. There was no evidence of thoracic aortic dilatation. There are no pulmonary artery filling defects to indicate acute pulmonary embolism. Evaluation is fredrick ewhat limited due to respiratory motion artifact No pleural effusions are visualized. There are extensive multifocal airspace opacities consistent with a multifocal pneumonia. IMPRESSION: 1. Extensive multifocal bilateral airspace opacities consistent with a multifocal pneumonia 2. No evidence of acute pulmonary embolism given the limitations of a motion degraded study 3. Hepatic steatosis ACT 112: Negative or not required by law. Electronically signed by: Elliott Light M.D. 12/04/2020 2:31 PM
--- NOTE | 2020-12-04 16:21 | Electrocardiogram Report ---
Test Reason : Blood Pressure : / mmHG Vent. Rate : 123 BPM Atrial Rate : 123 BPM P-R Int : 132 ms QRS Dur : 090 ms QT Int : 340 ms P-R-T Axes : 042 099 026 degrees QTc Int : 486 ms Sinus tachycardia Rightward axis Nonspecific ST abnormality Borderline ECG When compared with ECG of 13-JAN-2020 14:35, No significant change was found Confirmed by Gavin Hatfield ([id number]) on 12/04/2020 4:21:21 PM Referred By: REFERRED SELF Confirmed By:Jay Hatfield
[2020-12-04] MEDS ORDERED: GLUCOSE 40% GEL 15 GM TUBE PO PRN (16:56)
[2020-12-04] MEDS ORDERED: GLUCAGON FOR INJ 1 MG VIAL SQ PRN (16:56)
[2020-12-04] MEDS ORDERED: ALBUTEROL HFA 8 GM INHALER INH PRN (16:56)
[2020-12-04] MEDS ORDERED: DEXTROSE 50% 50 ML SYRINGE IV PRN (16:56)
[2020-12-04] MEDS ORDERED: GLUCOSE 10 TABS/TUBE PO PRN (16:56)
[2020-12-04] MEDS ORDERED: CARBOHYDRATES FOR HYPOGLYCEMIA PO PRN (16:56)
[2020-12-04] MEDS ORDERED: PHARMACY GLYCEMIC MGMT CONSULT PRN (17:13)
[2020-12-04] MEDS ORDERED: INSULIN HUMAN NPH SC ONE (17:30)
[2020-12-04] MEDS: INSULIN ASPART 100 UNITS/ML 3 ML PEN SC SCH ×2 (18:27→21:35)
[2020-12-04] MEDS: LITHIUM CARBONATE 300 MG TAB PO SCH (21:26)
[2020-12-04] MEDS: QUEtiapine FUMARATE 100 MG TABLET PO SCH (21:26)
[2020-12-04] MEDS: rOPINIRole HCL 0.25 MG TABLET PO SCH (21:26)
[2020-12-04] MEDS: clonazePAM 0.5 MG TAB PO SCH (21:26)
[2020-12-04] MEDS: QUEtiapine FUMARATE 200 MG TAB PO SCH (21:26)
[2020-12-04] MEDS: ENOXAPARIN INJ 60 MG/0.6 ML SYR SQ SCH (21:27)
[2020-12-04] MEDS: ACETAMINOPHEN 325 MG TAB PO PRN (21:28)
[2020-12-05] MEDS: INSULIN ASPART 100 UNITS/ML 3 ML PEN SC SCH ×6 (00:28→21:33)
[2020-12-05 05:41] LABS: Hematocrit (blood only) 43.6 % (42-52); Hemoglobin 15.1 g/dL (14.0-18.0); Mean Corpuscular Hemoglobin 30.7 pg (25-34); Mean Corpuscular Hgb Conc 34.6 g/dL (32-36); Mean Corpuscular Volume 88.6 fL (80-100); Mean Platelet Volume 11.2 fL (7.4-10.4); Platelet Count 103 K/uL (130-400); RDW Coefficient of Variation 13.3 % (11.5-14.5); RDW Standard Deviation 43.4 fL (36.4-46.3); Red Blood Count 4.92 M/uL (4.7-6.1)
[2020-12-05 06:20] LABS: Estimated Average Glucose 255 mg/dl; Hemoglobin A1C 10.5 % (4.5-5.6)
[2020-12-05 06:21] LABS: BUN Creatinine Ratio 9.8 (10-20); Calcium 8.5 mg/dl (8.5-10.1); Creatinine Clr Calc Pharmacy 125.3 ml/min; Est GFR (African American) 109.6; Est GFR (Non-African American) 94.6; Magnesium 2.4 mg/dl (1.8-2.4); Potassium 3.9 mmol/L (3.5-5.1)
--- NOTE | 2020-12-05 08:46 | Hospitalist Progress Note ---
Date of Service December 05, 2020 Assessment & Plan (1) Pneumonia due to COVID-19 virus: First symptoms on 11/26/2020. - Dexamethasone 6 mg PO daily x 10 days total (End date: 12/13/2020) - - Not a candidate for tocilizumab at this time (could still get this up to 72 hours from now if he decompensates). - Defer abx at this time given hx of consistent with Covid pneumonia and procalcitonin is negative on admission. - Supportive care with supplemental O2, albuterol PRN, cough medication, & T ylenol. - Reinforced self-proning as able (2) Diabetes: Last A1c was 5.3% in 2017. - Hold metformin while inpatient - Sliding scale insulin - A1c 10.5 - Did consult glycemic pharmacy since he will start steroids. Can consider NPH dose while on steroids. (3) Schizoaffective disorder, bipolar type: Calm and without any present symptoms. No acute needs. EKG in the ED showed QTc of 486. [place] level at goal on admission. - Continue home lithium, bupropion, quetiapine, and clonazepam - Monitor QTc & avoid any QTc-prolonging medications. (4) DVT prophylaxis: Lovenox 60 mg SQ Q12h -> Intermediate dosing per hospital policy and supported by recent literature CTA chest for PE-> no PE CW viral pneumonia Admission and Anticipated Discharge Date Admission Date: December 04, 2020 Subjective Patient feels extremely fatigued he is a nonproductive cough he is short of breath he is having a fever Review of Systems Review of Systems: Mild distress and moderate fatigue normal taste and smell no headache, blurry or double vision no speech or swallowing issues no chest pain, pressure or palpitations shortness of breath, non productive cough no abdominal pain, nausea or vomiting, diarrhea or constipation no dysuria, hematuria or frequency no focal joint pain or swelling no back pain, CVA tenderness or radicular pain no bruising, bleeding or rashes no focal signs of weakness or numbness or altered sensation no complaints of anxiety or depression.. Physical Exam Physical Exam: The patient appeared well nourished and normally developed. Pt is morbidly obese with BMI 39.7 Vital signs as documented. Head exam is normocephalic atraumatic no scleral icterus Neck is without JVD, thyromegaly, or carotid bruits. Lungs are clear to auscultation, no focal loss of breath sounds Cardiac exam, Rhythm is regular.. No murmurs, rubs or gallops. Abdominal exam reveals normal bowel sounds, soft non tender, no masses Extremities are nonedematous and both pedal pulses are present Neurologic exam is alert and oriented, no focal loss of strength or sensation Skin is without bruises or rashes Psychologically is without concerns for anxiety or depression Results & Data Results & Data ([facility]) Vital Signs (Past 12 Hours) Vital Signs Temp Pulse Resp BP Pulse Ox 12/05/20 07:34 100.4 F H 118 H 22 140/91 90 12/04/20 22:00 101.8 F H 104 H 18 112/71 92 PG Care Time/CCT Total # of Minutes Spent Total Time Spent with Patient: Total time spent is greater than 50% in coordination of care (as documented) at patient's floor/unit and/or counseling patient: Coding Level of Care Code 69840 Subseq Hosp Care Lvl 3 Diagnoses Pneumonia due to COVID-19 virus U07.1; J12.82 Diabetes E11.9 Schizoaffective disorder, bipolar type F25.0 DVT prophylaxis Z29.9
[2020-12-05] MEDS: ACETAMINOPHEN 325 MG TAB PO PRN ×4 (08:47→21:30)
[2020-12-05] MEDS: buPROPion HCl 100 MG TABLET PO SCH (08:48)
[2020-12-05] MEDS: ENOXAPARIN INJ 60 MG/0.6 ML SYR SQ SCH ×2 (08:49→20:42)
[2020-12-05] MEDS ORDERED: dexAMETHasone 4 MG TAB PO SCH (09:00)
[2020-12-05] MEDS: INSULIN HUMAN NPH SC SCH (09:09)
[2020-12-05] MEDS ORDERED: REMDESIVIR 200 MG in SODIUM CHLORIDE 0.9% 210 ML IV ONE (09:15)
[2020-12-05] MEDS: ZINC SULFATE 220 MG CAPSULE PO SCH (09:31)
--- NOTE | 2020-12-05 11:01 | Pharmacy Report ---
Pharmacy Glycemic Short Note 2 - Date of Service December 05, 2020 - Glycemic Short BSG Results (Last 24 hours): 12/04/20 12/04/20 12/04/20 10:45 12:40 17:23 Glucose 310 H* POC Glucose 280 H 338 H* 12/04/20 12/05/20 12/05/20 21:20 00:13 04:21 Glucose POC Glucose 244 H 173 H 162 H 12/05/20 12/05/20 05:15 08:07 Glucose 154 H POC Glucose 216 H OUTPATIENT ANTIDIABETIC REGIMEN: * Metformin ER 1000 mg PO PM * HbA1c = 10.5% (12/05/20) ASSESSMENT: * 35 yo M admitted secondary to Covid-19 Pneumonia. Pharmacy has been consulted for assistance with inpatient glycemic management. * BSG was elevated upon admission at 280 mg/dL, and patient received 10 mg of IV Dexamethasone in the ED. Pharmacy was consulted at dinner time when BSG was 338 mg/dL. He was given 40 units of NPH and started on Novolog based on weight and stress of 3. * BSGs trended down nicely last evenin-173 mg/dL and overnight check was 154 mg/dL * Fasting BSG was elevated at 216 mg/dL this AM. * Will continue with 40 units of NPH today as steroids have been decreased and changed to PO. * No change to Novolog at this time PLAN FOR INPATIENT GLYCEMIC CONTROL: * Hold outpatient oral diabetes medications * Basal insulin * NPH 40 units SC AM w/ PO dexamethasone (hold if dexamethasone is held/discontinued) * Bolus insulin * NovoLog per scale ACHS or Q6hrs while NPO * Goal Range: Low 100 mg/dL - High 140 mg/dL * Correction Factor: 15 mg/dL/unit * Nutritional / Prandial insulin per carb ratio of 1 unit per 5 grams CHO consumed PLAN FOR DISCHARGE: * HbA1c was 10.5% from this admission. Likely that patient will require insulin upon discharge given HbA1c. * Recommend patient establish with local Endocrinology office upon discharge for help with T2DM. * Recommend titrating Metformin ER upwards by 500 mg/week until goal dose of 2000 mg PO PM is achieved. * Vitamin B12 supplementation is likely required with long-term Metformin use. * Will continue to trend insulin requirements while inpatient but discharge recommendations will depend on if patient is sent home with steroids.
[2020-12-05] MEDS: SODIUM CHLORIDE 0.9% 10ML FLUSH IV SCH (12:24)
[2020-12-05] MEDS: INSULIN GLARGINE SOLOSTAR 100 UNITS/ML 3 ML PEN SC SCH (12:57)
[2020-12-05] MEDS: ALBUTEROL HFA 8 GM INHALER INH SCH ×2 (15:41→19:37)
[2020-12-05] MEDS ORDERED: ONDANSETRON INJ 2 MG/ML 2 ML VIAL IV PRN (16:59)
[2020-12-05] MEDS: QUEtiapine FUMARATE 200 MG TAB PO SCH (20:43)
[2020-12-05] MEDS: rOPINIRole HCL 0.25 MG TABLET PO SCH (20:43)
[2020-12-05] MEDS: LITHIUM CARBONATE 300 MG TAB PO SCH (20:43)
[2020-12-05] MEDS: QUEtiapine FUMARATE 100 MG TABLET PO SCH (20:43)
[2020-12-05] MEDS: clonazePAM 0.5 MG TAB PO SCH (20:43)
[2020-12-06] MEDS: ACETAMINOPHEN 325 MG TAB PO PRN ×3 (03:30→21:01)
[2020-12-06 06:43] LABS: BUN Creatinine Ratio 10.7 (10-20); C Reactive Protein 14.7 mg/dl (0-0.29); Calcium 8.4 mg/dl (8.5-10.1); Creatinine Clr Calc Pharmacy 147.1 ml/min; Est GFR (African American) 128.4; Est GFR (Non-African American) 110.8; Potassium 3.4 mmol/L (3.5-5.1)
[2020-12-06] MEDS: ALBUTEROL HFA 8 GM INHALER INH SCH ×4 (07:26→19:37)
--- NOTE | 2020-12-06 07:39 | Electrocardiogram Report ---
Test Reason : Blood Pressure : / mmHG Vent. Rate : 117 BPM Atrial Rate : 117 BPM P-R Int : 138 ms QRS Dur : 092 ms QT Int : 330 ms P-R-T Axes : 054 099 016 degrees QTc Int : 460 ms Sinus tachycardia Rightward axis Borderline ECG When compared with ECG of 04-DEC-2020 10:27, No significant change was found Confirmed by Chadwick Ramon ([id number]) on 12/06/2020 7:39:45 AM Referred By: REFERRED SELF Confirmed By:Chadwick Ramon
[2020-12-06] MEDS: dexAMETHasone 6 MG in SYRINGE 0 ML IV SCH (08:45)
[2020-12-06] MEDS: ZINC SULFATE 220 MG CAPSULE PO SCH (08:46)
[2020-12-06] MEDS: buPROPion HCl 100 MG TABLET PO SCH (08:46)
[2020-12-06] MEDS: POTASSIUM CHLORIDE CRTAB 20 MEQ TABCR PO SCH ×2 (08:46→20:47)
[2020-12-06] MEDS: ENOXAPARIN INJ 60 MG/0.6 ML SYR SQ SCH ×2 (08:46→20:49)
[2020-12-06] MEDS: INSULIN HUMAN NPH SC SCH (09:00)
[2020-12-06] MEDS: INSULIN GLARGINE SOLOSTAR 100 UNITS/ML 3 ML PEN SC SCH (09:00)
--- NOTE | 2020-12-06 09:12 | Pharmacy Report ---
Pharmacy Glycemic Short Note 2 - Date of Service December 06, 2020 - Glycemic Short BSG Results (Last 24 hours): 12/05/20 12/05/20 12/05/20 11:59 16:44 20:22 Glucose POC Glucose 206 H 294 H 166 H 12/06/20 05:41 Glucose 174 H POC Glucose OUTPATIENT ANTIDIABETIC REGIMEN: * Metformin ER 1000 mg PO PM * HbA1c = 10.5% (12/05/20) ASSESSMENT: 12/06: * Patient received a total of 110 units of insulin yesterday (60 basal + 50 bolus) * BSGs were: [phone] mg/dL, uncontrolled * Oxygen requirements increased yesterday and patient was transferred to Covid unit * Fasting BSG this AM was [] * Will increase Lantus to 30 units daily - prefer titrating Lantus as patient will require once daily basal upon discharge given HbA1c * Steroid induced hyperglycemia noted in postprandial BSGs so tightened carb ratio slightly 12/05: * 35 yo M admitted secondary to Covid-19 Pneumonia. Pharmacy has been consulted for assistance with inpatient glycemic management. * BSG was elevated upon admission at 280 mg/dL, and patient received 10 mg of IV Dexamethasone in the ED. Pharmacy was consulted at dinner time when BSG was 338 mg/dL. He was given 40 units of NPH and started on Novolog based on weight and stress of 3. * BSGs trended down nicely last evenin-173 mg/dL and overnight check was 154 mg/dL * Fasting BSG was elevated at 216 mg/dL this AM. * Will continue with 40 units of NPH today as steroids have been decreased and changed to PO. * No change to Novolog at this time PLAN FOR INPATIENT GLYCEMIC CONTROL: * Hold outpatient oral diabetes medications * Basal insulin - increased Lantus * NPH 40 units SC AM w/ PO dexamethasone (hold if dexamethasone is held/discontinued) * Lantus 30 units SC daily * Bolus insulin - tightened CR * NovoLog per scale ACHS or Q6hrs while NPO * Goal Range: Low 100 mg/dL - High 140 mg/dL * Correction Factor: 15 mg/dL/unit * Nutritional / Prandial insulin per carb ratio of 1 unit per 4 grams CHO consumed PLAN FOR DISCHARGE: * HbA1c was 10.5% from this admission. Likely that patient will require insulin upon discharge given HbA1c. * Recommend patient establish with local Endocrinology office upon discharge for help with T2DM. * Recommend titrating Metformin ER upwards by 500 mg/week until goal dose of 2000 mg PO PM is achieved. * Vitamin B12 supplementation is likely required with long-term Metformin use. * Will continue to trend insulin requirements while inpatient but discharge recommendations will depend on if patient is sent home with steroids.
[2020-12-06] MEDS ORDERED: TOCILIZUMAB 800 MG in 0.9 % SODIUM CHLORIDE 60 ML IV STA (10:12)
--- NOTE | 2020-12-06 10:24 | Pulmonary Consultation ---
Date of Consultation December 06, 2020 Assessment & Plan (1) Acute respiratory failure with hypoxia: CT chest 12/04/2020 personally reviewed: Bilateral patchy infiltrates appreciated, more in bilateral upper lobes, there is more dense rather than groundglass. No mediastinal lymphadenopathy --Acute hypoxic respiratory failure Secondary to multilobar pneumonia Secondary to COVID-19 CRP 14.7, NT BNP: 15, procalcitonin 0.25 COVID-19 PCR positive, influenza A/B negative Positive lymphopenia Continue with remdesivir for total of 5 days --> monitor LFTs Continue with dexamethasone 6 mg for 10 days Keep O2 saturation between 88-92% Awake proning is going to have the patient Agree with Lovenox 60 mg every 12 Alternate between high flow and CPAP. Patient CT chest shows dense consolidative process as compared to groundglass opacities usually seen in COVID-19. I will add doxycycline for 5 days. --Diabetes type 2 Pharmacy managing the blood sugars --Morbid obesity with probable MICHAELA Patient will need outpatient polysomnography Continue with CPAP nightly and as needed shortness of breath --Bipolar disorder Continue with medication --Thrombocytopenia It seems that is clumping of the platelets Recommend sending the tube in EDTA to make sure if it is truly thrombocytopenic --Prophylaxis VTE: Lovenox GI: Protonix Lines: Peripheral Diet: Diabetic Plan: In/out: -1600, urine output 2400 Keep the patient euvolemic to negative balance. Follow-up chest x-ray in a.m. Given the elevated CRP, patient still spiking fever and increased oxygen demand, patient qualifies for Tocilizumab. We will give 1 dose of tocilizumab today. Monitor AST ALT. Trend CRP on a daily basis Guaifenesin added along with flutter valve. Doxycycline for 5 days given the dense consolidative process on the CT scan Awake proning and incentive spirometry to be used more frequently CPAP nightly and as needed shortness of breath If there is any worsening in patient's respiratory status will intubate. I have personally spent 35 minutes of critical care time in the direct management of this patient. This is a life/limb threatening event. This includes time spent evaluating patient, direct bedside care, chart review, placing orders, interpretation of diagnostic studies, discussion with consultants, patient, and family members, as well as other required patient management activities. This time is exclusive of all separately billable procedures, and teaching time and separate from and in addition to any other critical care service time. Please note the above document was generated using voice recognition software. It may contain grammatical, syntax or spelling errors. (2) Pneumonia: (3) Pneumonia due to COVID-19 virus: (4) Obesity (BMI 30.0-34.9): History of Present Illness Attending Physician: Souleymane Feng MD History of Present Illness 35-year-old past medical history of bipolar disorder and diabetes type 2 presented to the hospital for hypoxia He was found to have COVID-19 Pulmonary consulted for increasing oxygen requirement. At the time of examination patient was on 40 L high flow, 80% saturating 89%. He was not in any respiratory distress. He was breathing in the low 20s. Denied any chest pain, no headache, no nausea, no vomiting. Fair appetite. Denies any dysuria, no diarrhea. No headache, no blurry vision. He has cough but is not bringing up any phlegm. Social history: Non-smoker, no use of any illicit drugs No birds or poultry nearby. No pets at home. No personal or family history of asthma. Allergies Allergy/AdvReac Type Severity Reaction Status Date / Time No Known Allergies Allergy Verified 12/04/20 10:57 Home Medications Medication Instructions Recorded Confirmed Type bupropion HCl 100 mg PO QAM 05/31/19 12/04/20 History clonazepam 1.5 mg PO HS 05/31/19 12/04/20 History lithium carbonate 600 mg PO HS 05/31/19 12/04/20 History quetiapine 100 mg PO HS 05/31/19 12/04/20 History quetiapine 200 mg PO HS 05/31/19 12/04/20 History ropinirole 0.5 mg PO HS 05/31/19 12/04/20 History metformin 500 mg PO PM 12/04/20 12/04/20 History Patient History Medical History Diabetes Schizoaffective disorder, bipolar type Surgical History No pertinent past surgical history Family History Father Heart disease Social History Smoking Status: Former smoker Second Hand Exposure: No; Hx Alcohol Use: No Hx Substance Use: No Preferred Language: Trinidadian Communication Ability: Effective Pre Kindergarten Teacher Required: No Beliefs That Will Affect Care: None Current Living Situation: Family Feels Safe at Home: Yes Assistive Devices: Oxygen - Continuous Review of Systems Review of Systems: All systems reviewed & are unremarkable except as noted in HPI & below Physical Exam Physical Exam: Constitutional: No acute distress HEENT: EOMI, PERRLA, conjunctival injection Respiratory system: Decreased air entry bilaterally, no wheeze, no rhonchi, positive crackles bilaterally CVS: S1-S2 positive, no murmurs or gallops Abdomen: Soft, nontender, nondistended, positive bowel sounds x4, obese Extremities: +2 pulses bilaterally radialis/ dorsalis pedis, no cyanosis, no edema Neuro: Awake alert oriented x3 Psych: Normal mood and affect G/U: No Guzmán Skin: no rashes, warm and dry Lymphatic: no cervical or axillary lymphadenopathy Results & Data Results & Data ([facility]) Vital Signs (Past 12 Hours) Vital Signs Temp Pulse Pulse Resp BP Pulse Ox 12/06/20 07:37 107 H 27 H 91 12/06/20 07:28 114 H 29 H 86 L 12/06/20 03:38 116 H 18 88 L 12/06/20 03:32 38.1 C H 114 H 26 H 129/90 89 L 12/05/20 23:00 104 H 12/05/20 22:48 112 H 24 116/82 12/05/20 05:15 12/06/20 05:41 PG Care Time/CCT Total # of Minutes Spent Total Time Spent with Patient: Total time spent is greater than 50% in coordination of care (as documented) at patient's floor/unit and/or counseling patient: Critical Care Time: Yes Total Critical Care Time: 35 Coding Level of Care Code None Diagnoses Acute respiratory failure with hypoxia J96.01 Pneumonia J18.9 Pneumonia due to COVID-19 virus U07.1; J12.82 Obesity (BMI 30.0-34.9) E66.9 Additional Codes Critical Care Time - Critical Care Time: Yes ([id number]) Time Spent (min) 35
[2020-12-06] MEDS: INSULIN ASPART 100 UNITS/ML 3 ML PEN SC SCH ×4 (10:31→20:50)
[2020-12-06] MEDS: DOXYCYCLINE HYCLATE 100 MG CAP PO SCH ×2 (11:11→20:48)
[2020-12-06] MEDS: PANTOprazole 40 MG TAB PO SCH (12:00)
[2020-12-06] MEDS: REMDESIVIR 100 MG in SODIUM CHLORIDE 0.9% 230 ML IV SCH (13:19)
[2020-12-06] MEDS: SODIUM CHLORIDE 0.9% 10ML FLUSH IV SCH (13:42)
--- NOTE | 2020-12-06 16:28 | Hospitalist Progress Note ---
Date of Service December 06, 2020 Assessment & Plan (1) Pneumonia due to COVID-19 virus: First symptoms on 11/26/2020. Dexamethasone 6 mg IV daily Remdesivir per protocol Tocilizumab will be given with pulmonary oversight -High flow oxygen 50 L 80% - Defer abx at this time given hx of consistent with Covid pneumonia and procalcitonin is negative on admission. - Supportive care with supplemental O2, albuterol PRN, cough medication, & Tylenol. - Reinforced self-proning as able (2) Diabetes: Last A1c was 5.3% in 2017. - Hold metformin while inpatient - Sliding scale insulin, glycemic pharmacy oversight due to steroids - A1c 10.5 (3) Schizoaffective disorder, bipolar type: Calm and without any present symptoms. No acute needs. EKG in the ED showed QTc of 486. [place] level at goal on admission. - Continue home lithium, bupropion, quetiapine, and clonazepam - Monitor QTc & avoid any QTc-prolonging medications. (4) DVT prophylaxis: Lovenox 60 mg SQ Q12h -> Intermediate dosing per hospital policy and supported by recent literature CTA chest for PE-> no PE CW viral pneumonia Admission and Anticipated Discharge Date Admission Date: December 04, 2020 Subjective Patient has declined dramatically he is progress with his marked hypoxemia from acute respiratory failure with hypoxia from Covid pneumonia he is now on high flow oxygen 50 L 80% and is proning he qualifies for tocilizumab and was seen by pulmonary given this medication this morning in addition to his remdesivir and dexamethasone Review of Systems Review of Systems: Mild distress and moderate fatigue claims to have normal taste and smell no headache, blurry or double vision no speech or swallowing issues no chest pain, pressure or palpitations Rest of significant shortness of breath and nonproductive coughing persist no abdominal pain, nausea or vomiting, diarrhea or constipation no dysuria, hematuria or frequency no focal joint pain or swelling no back pain, CVA tenderness or radicular pain no bruising, bleeding or rashes no focal signs of weakness or numbness or altered sensation no complaints of anxiety or depression.. Physical Exam Physical Exam: The patient appeared well nourished and normally developed. He is in moderate to significant respiratory distress Pt is morbidly obese with BMI 39.7 Vital signs as documented. Patient appears pale and washed out Head exam is normocephalic atraumatic no scleral icterus Neck is without JVD, thyromegaly, or carotid bruits. Lungs are coarse bilaterally with basilar rales accessory muscles are used for breathing Cardiac exam, Rhythm is regular.. No murmurs, rubs or gallops. Abdominal exam reveals normal bowel sounds, soft non tender, no masses Extremities are nonedematous and both pedal pulses are present Neurologic exam is alert and oriented, no focal loss of strength or sensation Skin is without bruises or rashes Psychologically is without concerns for anxiety or depression Results & Data Results & Data ([facility]) Vital Signs (Past 12 Hours) Vital Signs Temp Pulse Resp BP Pulse Ox 12/06/20 15:47 98.8 F 109 H 20 133/69 92 12/06/20 15:31 98 H 22 92 12/06/20 15:30 70 22 92 12/06/20 11:23 105 H 29 H 92 12/06/20 10:25 97.7 F 108 H 16 138/91 91 12/06/20 10:17 108 H 24 91 12/06/20 07:37 107 H 27 H 91 12/06/20 07:28 114 H 29 H 86 L PG Care Time/CCT Total # of Minutes Spent Total Time Spent with Patient: Total time spent is greater than 50% in coordination of care (as documented) at patient's floor/unit and/or counseling patient: Coding Level of Care Code 14425 Subseq Hosp Care Lvl 3 Diagnoses Pneumonia due to COVID-19 virus U07.1; J12.82 Diabetes E11.9 Schizoaffective disorder, bipolar type F25.0 DVT prophylaxis Z29.9
[2020-12-06] MEDS: guaiFENesin 600 MG TABCR PO SCH (20:45)
[2020-12-06] MEDS: QUEtiapine FUMARATE 100 MG TABLET PO SCH (20:47)
[2020-12-06] MEDS: LITHIUM CARBONATE 300 MG TAB PO SCH (20:47)
[2020-12-06] MEDS: rOPINIRole HCL 0.25 MG TABLET PO SCH (20:48)
[2020-12-06] MEDS: QUEtiapine FUMARATE 200 MG TAB PO SCH (20:54)
[2020-12-06] MEDS: clonazePAM 0.5 MG TAB PO SCH (21:01)
[2020-12-07] MEDS: ZINC SULFATE 220 MG CAPSULE PO SCH (05:43)
[2020-12-07] MEDS: ALBUTEROL HFA 8 GM INHALER INH SCH ×4 (07:35→19:17)
[2020-12-07] MEDS: DOXYCYCLINE HYCLATE 100 MG CAP PO SCH ×2 (08:11→21:09)
[2020-12-07] MEDS: guaiFENesin 600 MG TABCR PO SCH ×2 (08:12→21:08)
[2020-12-07] MEDS: PANTOprazole 40 MG TAB PO SCH (08:12)
[2020-12-07] MEDS: dexAMETHasone 6 MG in SYRINGE 0 ML IV SCH (08:12)
[2020-12-07] MEDS: buPROPion HCl 100 MG TABLET PO SCH (08:12)
[2020-12-07] MEDS: POTASSIUM CHLORIDE CRTAB 20 MEQ TABCR PO SCH (08:12)
[2020-12-07] MEDS: ENOXAPARIN INJ 60 MG/0.6 ML SYR SQ SCH ×2 (08:13→21:07)
[2020-12-07] MEDS: INSULIN ASPART 100 UNITS/ML 3 ML PEN SC SCH ×4 (08:14→21:32)
[2020-12-07] MEDS: INSULIN HUMAN NPH SC SCH (08:14)
[2020-12-07] MEDS: INSULIN GLARGINE SOLOSTAR 100 UNITS/ML 3 ML PEN SC SCH ×2 (08:14→15:19)
--- NOTE | 2020-12-07 10:13 | Pharmacy Report ---
Pharmacy Glycemic Short Note 2 - Date of Service December 07, 2020 - Glycemic Short BSG Results (Last 24 hours): 12/06/20 12/06/20 12/06/20 11:24 16:30 19:57 POC Glucose 218 H 222 H 204 H 12/07/20 07:06 POC Glucose 152 H OUTPATIENT ANTIDIABETIC REGIMEN: * Metformin ER 1000 mg PO PM * HbA1c = 10.5% (12/05/20) ASSESSMENT: 12/07: * Mr. Durand received a total of 121 units of insulin yesterday * 70 units basal + 51 units bolus * BSGs were uncontrolled yesterday: [phone] mg/dL * Fasting BSG improved today at 152 mg/dL * No change in Lantus dose * Continue NPH while patient is receiving IV Dexamethasone (steroids changed from PO to IV yesterday) * Postprandial elevations in BSGs yesterday * Tighten correction and carb ratio 12/06: * Patient received a total of 110 units of insulin yesterday (60 basal + 50 bolus) * BSGs were: [phone] mg/dL, uncontrolled * Oxygen requirements increased yesterday and patient was transferred to Covid unit * Fasting BSG this AM was 174 mg/dL * Will increase Lantus to 30 units daily - prefer titrating Lantus as patient will require once daily basal upon discharge given HbA1c * Steroid induced hyperglycemia noted in postprandial BSGs so tightened carb ratio slightly 12/05: * 35 yo M admitted secondary to Covid-19 Pneumonia. Pharmacy has been consulted for assistance with inpatient glycemic management. * BSG was elevated upon admission at 280 mg/dL, and patient received 10 mg of IV Dexamethasone in the ED. Pharmacy was consulted at dinner time when BSG was 338 mg/dL. He was given 40 units of NPH and started on Novolog based on weight and stress of 3. * BSGs trended down nicely last evenin-173 mg/dL and overnight check was 154 mg/dL * Fasting BSG was elevated at 216 mg/dL this AM. * Will continue with 40 units of NPH today as steroids have been decreased and changed to PO. * No change to Novolog at this time PLAN FOR INPATIENT GLYCEMIC CONTROL: * Hold outpatient oral diabetes medications * Basal insulin - No change * NPH 40 units SC AM w/ IV dexamethasone (hold if dexamethasone is held/discontinued) * Lantus 30 units SC daily * Bolus insulin - tightened CF/CR * NovoLog per scale ACHS or Q6hrs while NPO * Goal Range: Low 100 mg/dL - High 140 mg/dL * Correction Factor: 12 mg/dL/unit * Nutritional / Prandial insulin per carb ratio of 1 unit per 3 grams CHO consumed PLAN FOR DISCHARGE: * HbA1c was 10.5% from this admission. Likely that patient will require insulin upon discharge given HbA1c. * Recommend patient establish with local Endocrinology office upon discharge for help with T2DM. * Recommend titrating Metformin ER upwards by 500 mg/week until goal dose of 2000 mg PO PM is achieved. * Vitamin B12 supplementation is likely required with long-term Metformin use. * Will continue to trend insulin requirements while inpatient but discharge recommendations will depend on if patient is sent home with steroids.
--- NOTE | 2020-12-07 10:44 | XRay Report ---
XR chest 1V portable CLINICAL HISTORY: f/u COMPARISON STUDY: Chest radiograph and chest CT December 04, 2020. FINDINGS: No pneumothorax is identified. There is a possible small left pleural effusion. Patient is rotated. Extensive bilateral airspace opacities are noted. Left lung airspace opacities have slightly progressed. IMPRESSION: 1. Extensive bilateral airspace opacities with progression of left lung airspace opacities since prio r exam. The findings represent multifocal pneumonia. 2. Possible small left pleural effusion. 3. Possible left lung volume loss, accentuated on this rotated study. ACT 112: Negative or not required by law. Electronically signed by: Alli Genao M.D. 12/07/2020 10:43 AM
--- NOTE | 2020-12-07 10:50 | Hospitalist Progress Note ---
Date of Service December 07, 2020 Assessment & Plan (1) Acute respiratory failure with hypoxia: he is on 50L and 70% FiO2 using CPAP at night laying prone as much as he can if he has increased work of breathing would likely need intubated pulmonology following (2) Pneumonia due to COVID-19 virus: First symptoms on 11/26/2020, admitted here on 12/04 Dexamethasone 6 mg IV daily x 10 days total Remdesivir per protocol Tocilizumab administered on 12/06 due to worsening condition, high CRP -High flow oxygen 50 L, down to 70% FiO2, slight improvement - Doxycycline 100mg BID started 12/06 per pulmonology - lay prone as much as possible, he is compliant he appears fatigued but breathing is not labored at high risk of needing intubated, pulmonology following (3) Pneumonia: multifocal pneumonia due to COVID doxycycline added on 12/06 (4) Diabetes: Last A1c was 5.3% in 2017. - Hold metformin while inpatient - Sliding scale insulin, glycemic pharmacy oversight due to steroids - A1c 10.5 monitor for hypoglycemia, no episodes (5) Schizoaffective disorder, bipolar type: Calm and without any present symptoms. No acute needs. EKG in the ED showed QTc of 486. [place] level at goal on admission. - Continue home lithium, bupropion, quetiapine, and clonazepam - Monitor QTc & avoid any QTc-prolonging medications. (6) DVT prophylaxis: Lovenox 60 mg SQ Q12h -> Intermediate dosing per hospital policy and supported by recent literature CTA chest for PE-> no PE CW viral pneumonia (7) Obesity (BMI 30.0-34.9): Admission and Anticipated Discharge Date Admission Date: December 04, 2020 Subjective patient laying on his stomach, no distress, appears fatigued he is eating okay, no vomiting, no diarrhea he is on 50L and 70% FiO2, on CPAP over night appreciate pulmonology input, received Tocilizumab yesterday reviewed chart, reviewed labs all questions answered he knows the importance of laying prone as much as possible understands he might get worse and need to be intubated Review of Systems Review of Systems: All systems reviewed & are unremarkable except as noted in Subjective Constitutional: + fatigue and + weakness; no fever, no chills and no sweats Respiratory: + dyspnea and + dyspnea on exertion; no cough Cardiovascular: no chest pain Gastrointestinal: no abdominal pain, no nausea, no vomiting, no constipation and no diarrhea/loose stools Physical Exam Constitutional: well developed, + ill appearing, + obese and + lethargic; no acute distress Neck: trachea midline, no thyromegaly Respiratory: + tachypneic; no respiratory distress and no labored breathing Auscultation: lungs clear to auscultation bilaterally Cardiovascular: RRR, no murmur, no edema Gastrointestinal (Abdomen): normal bowel sounds, soft, nontender, no hepatosplenomegaly Musculoskeletal: no cyanosis or clubbing, extremities motor strength 5/5 Skin: no rashes, warm and dry Neurologic: patellar DTR's 2+ bilat, sensation intact and PERRL, EOMI, accommodation nl, no face palsy, no dysarthria Psychiatric: A+Ox3, euthymic affect Lymphatic: no cervical or axillary lymphadenopathy Results & Data Results & Data ([facility]) Vital Signs (Past 12 Hours) Vital Signs Temp Pulse Pulse Resp BP BP Pulse Ox 12/07/20 08:00 91 H 12/07/20 07:37 91 H 22 95 12/07/20 07:00 36.5 C 102 H 22 138/95 93 12/07/20 03:17 36.4 C L 86 27 H 96/57 L 97 12/07/20 02:41 71 20 98 12/06/20 23:51 36.4 C L 92 H 14 90/59 L 96 12/06/20 23:37 101 H 101 H 28 H 86 L Laboratory Results Laboratory Results - last 24 hr 12/06/20 12/06/20 12/06/20 11:24 16:30 19:57 POC Glucose 218 H 222 H 204 H 12/07/20 07:06 POC Glucose 152 H Medications Administered Current Inpatient Medications Acetaminophen (Acetaminophen 325 Mg Tab) 650 mg PO Q4H PRN PRN Reason: pain/fever Stop: 01/03/21 16:55 Last Admin: 12/06/20 21:01 Dose: 650 mg Documented by: Albuterol (Albuterol Hfa 8 Gm Inhaler) 2 puffs INH Q4H PRN PRN Reason: Shortness Of Breath Or Wheezing Stop: 01/03/21 16:55 Last Admin: 12/06/20 03:38 Dose: 2 puffs Documented by: Albuterol (Albuterol Hfa 8 Gm Inhaler) 2 puffs INH QIDR [facility] Stop: 01/04/21 18:59 Last Admin: 12/07/20 07:35 Dose: 2 puffs Documented by: Bupropion HCl (Bupropion Hcl 100 Mg Tablet) 100 mg PO QAM [facility] Stop: 01/04/21 08:59 Last Admin: 12/07/20 08:12 Dose: 100 mg Documented by: Clonazepam (Clonazepam 0.5 Mg Tab) 1.5 mg PO HS [facility] Stop: 01/03/21 20:59 Last Admin: 12/06/20 21:01 Dose: 1.5 mg Documented by: Dextrose (Dextrose 50% 50 Ml Syringe) 25 - 50 ml IV UD PRN; Protocol PRN Reason: Hypoglycemia Protocol Stop: 01/03/21 16:55 Doxycycline Hyclate (Doxycycline Hyclate 100 Mg Cap) 100 mg PO BID [facility]; Protocol Stop: 12/11/20 10:59 Last Admin: 12/07/20 08:11 Dose: 100 mg Documented by: Enoxaparin Sodium (Enoxaparin Inj 60 Mg/0.6 Ml Syr) 60 mg SQ Q12H [facility] Stop: 01/03/21 20:59 Last Admin: 12/07/20 08:13 Dose: 60 mg Documented by: Glucagon (Glucagon For Inj 1 Mg Vial) 1 mg SQ UD PRN; Protocol PRN Reason: Hypoglycemia Protocol Stop: 01/03/21 16:55 Glucose (Glucose 10 Tabs/Tube) 4 - 8 tabs PO UD PRN; Protocol PRN Reason: Hypoglycemia Protocol Stop: 01/03/21 16:55 Glucose (Glucose 40% Gel 15 Gm Tube) 15 - 30 gm PO UD PRN; Protocol PRN Reason: Hypoglycemia Protocol Stop: 01/03/21 16:55 Guaifenesin (Guaifenesin 600 Mg Tabcr) 1,200 mg PO Q12 [facility] Stop: 01/05/21 20:59 Last Admin: 12/07/20 08:12 Dose: 1,200 mg Documented by: Guaifenesin/Codeine Phosphate (Guaifenesin/Codeine 200mg/20mg 10ml Udc) 10 ml PO Q6H PRN PRN Reason: Cough Stop: 01/03/21 16:55 Remdesivir 100 mg/ Sodium (Chloride) 250 mls @ 250 mls/hr IV Q24H [facility]; Protocol Stop: 12/09/20 12:59 Last Infusion: 12/06/20 14:24 Dose: Infused Documented by: Dexamethasone 6 mg/ Syringe 1.5 mls @ 1 mls/min IV DAILY [facility] Stop: 01/05/21 08:59 Last Admin: 12/07/20 08:12 Dose: 1 mls/min Documented by: Insulin Aspart (Insulin Aspart 100 Units/Ml 3 Ml Pen) 0 units SC ACHS [facility] Stop: 01/03/21 16:55 Last Admin: 12/07/20 08:14 Dose: 13 units Documented by: Insulin Glargine (Insulin Glargine Solostar 100 Units/Ml 3 Ml Pen) 30 units SC DAILY [facility]; Protocol Stop: 01/04/21 12:14 Last Admin: 12/07/20 08:14 Dose: 30 units Documented by: Insulin Human NPH (Insulin Human Nph) 40 units SC DAILY [facility] Stop: 01/04/21 08:59 Last Admin: 12/07/20 08:14 Dose: 40 units Documented by: [place] Carbonate ([place] Carbonate 300 Mg Tab) 600 mg PO HS [facility] Stop: 01/03/21 20:59 Last Admin: 12/06/20 20:47 Dose: 600 mg Documented by: Miscellaneous (Carbohydrates For Hypoglycemia ) 15 - 30 gm PO UD PRN PRN Reason: Hypoglycemia Protocol Stop: 01/03/21 16:55 Miscellaneous Information (Pharmacy Glycemic Mgmt Consult) 1 ea N/A UD PRN; Protocol PRN Reason: Consult Stop: 01/03/21 17:12 Ondansetron HCl (Ondansetron Inj 2 Mg/Ml 2 Ml Vial) 4 mg IV Q6H PRN PRN Reason: Nausea Stop: 01/04/21 16:58 Pantoprazole Sodium (Pantoprazole 40 Mg Tab) [facility] Stop: 01/05/21 10:59 Last Admin: 12/07/20 08:12 Dose: 40 mg Documented by: Polyethylene Glycol (Polyethylene (Miralax) 17 Gm Pack) 17 gm PO DAILY PRN PRN Reason: Constipation Stop: 01/04/21 16:58 Quetiapine Fumarate (Quetiapine Fumarate 100 Mg Tablet) 100 mg PO HS [facility] Stop: 01/03/21 20:59 Last Admin: 12/06/20 20:47 Dose: 100 mg Documented by: Quetiapine Fumarate (Quetiapine Fumarate 200 Mg Tab) 200 mg PO HS [facility] Stop: 01/03/21 20:59 Last Admin: 12/06/20 20:54 Dose: 200 mg Documented by: Ropinirole HCl (Ropinirole Hcl 0.25 Mg Tablet) 0.5 mg PO HS [facility] Stop: 01/03/21 20:59 Last Admin: 12/06/20 20:48 Dose: 0.5 mg Documented by: Sodium Chloride (Sodium Chloride 0.9% 10ml Flush) 30 ml IV DAILY@1300 [facility] Stop: 12/09/20 13:01 Last Admin: 12/06/20 13:42 Dose: 30 ml Documented by: Zinc Sulfate (Zinc Sulfate 220 Mg Capsule) 220 mg PO DAILYBB [facility] Stop: 01/06/21 06:29 Last Admin: 12/07/20 05:43 Dose: 220 mg Documented by: PG Care Time/CCT Total # of Minutes Spent Total Time Spent: 32 Total Time Spent with Patient: Total time spent is greater than 50% in coordination of care (as documented) at patient's floor/unit and/or counseling patient: Coding Level of Care Code 30297 Subseq Hosp Care Lvl 3 Diagnoses Acute respiratory failure with hypoxia J96.01 Pneumonia due to COVID-19 virus U07.1; J12.82 Pneumonia J18.9 Diabetes E11.9 Schizoaffective disorder, bipolar type F25.0 DVT prophylaxis Z29.9 Obesity (BMI 30.0-34.9) E66.9
[2020-12-07] MEDS: REMDESIVIR 100 MG in SODIUM CHLORIDE 0.9% 230 ML IV SCH (12:51)
[2020-12-07] MEDS: SODIUM CHLORIDE 0.9% 10ML FLUSH IV SCH (14:03)
--- NOTE | 2020-12-07 14:43 | Electrocardiogram Report ---
Test Reason : Blood Pressure : / mmHG Vent. Rate : 094 BPM Atrial Rate : 094 BPM P-R Int : 136 ms QRS Dur : 094 ms QT Int : 390 ms P-R-T Axes : 052 086 023 degrees QTc Int : 487 ms Normal sinus rhythm Prolonged QT Abnormal ECG When compared with ECG of 05-DEC-2020 07:44, No significant change was found Confirmed by Ben Gonzalez [id number]) on 12/07/2020 2:43:31 PM Referred By: REFERRED SELF Confirmed By:Ben Gonzalez
[2020-12-07] MEDS: clonazePAM 0.5 MG TAB PO SCH (21:07)
[2020-12-07] MEDS: QUEtiapine FUMARATE 100 MG TABLET PO SCH (21:08)
[2020-12-07] MEDS: rOPINIRole HCL 0.25 MG TABLET PO SCH (21:08)
[2020-12-07] MEDS: LITHIUM CARBONATE 300 MG TAB PO SCH (21:09)
[2020-12-07] MEDS: QUEtiapine FUMARATE 200 MG TAB PO SCH (21:09)
[2020-12-07] MEDS: ACETAMINOPHEN 325 MG TAB PO PRN (21:40)
[2020-12-08] MEDS: ZINC SULFATE 220 MG CAPSULE PO SCH (05:47)
[2020-12-08] MEDS: ALBUTEROL HFA 8 GM INHALER INH SCH ×4 (07:07→19:55)
[2020-12-08] MEDS: PANTOprazole 40 MG TAB PO SCH (08:31)
[2020-12-08] MEDS: buPROPion HCl 100 MG TABLET PO SCH (08:31)
[2020-12-08] MEDS: DOXYCYCLINE HYCLATE 100 MG CAP PO SCH ×2 (08:31→21:02)
[2020-12-08] MEDS: guaiFENesin 600 MG TABCR PO SCH ×2 (08:32→21:02)
[2020-12-08] MEDS: ENOXAPARIN INJ 60 MG/0.6 ML SYR SQ SCH ×2 (08:32→21:02)
[2020-12-08] MEDS: INSULIN HUMAN NPH SC SCH (08:33)
[2020-12-08] MEDS: INSULIN GLARGINE SOLOSTAR 100 UNITS/ML 3 ML PEN SC SCH (08:33)
[2020-12-08] MEDS: dexAMETHasone 6 MG in SYRINGE 0 ML IV SCH (08:33)
[2020-12-08] MEDS: INSULIN ASPART 100 UNITS/ML 3 ML PEN SC SCH ×4 (08:34→21:03)
--- NOTE | 2020-12-08 11:35 | Hospitalist Progress Note ---
Date of Service December 08, 2020 Assessment & Plan (1) Acute respiratory failure with hypoxia: he is on 30L and 50% FiO2 using CPAP at night laying prone as much as he can prognosis is improving today, requiring a lot less oxygen (2) Pneumonia due to COVID-19 virus: First symptoms on 11/26/2020, admitted here on 12/04 Dexamethasone 6 mg IV daily x 10 days total Remdesivir per protocol Tocilizumab administered on 12/06 due to worsening condition, high CRP -High flow oxygen 30 L, down to 50% FiO2, big improvement from yesterday - Doxycycline 100mg BID started 12/06 per pulmonology, complete 5 days - lay prone as much as possible, he is compliant he appears fatigued but breathing is not labored improving prognosis likely here throught the weekend (3) Pneumonia: multifocal pneumonia due to COVID doxycycline added on 12/06 (4) Diabetes: Last A1c was 5.3% in 2017. - Hold metformin while inpatient - Sliding scale insulin, glycemic pharmacy oversight due to steroids - A1c 10.5 monitor for hypoglycemia, no episodes (5) Schizoaffective disorder, bipolar type: Calm and without any present symptoms. No acute needs. EKG in the ED showed QTc of 486. [place] level at goal on admission. - Continue home lithium, bupropion, quetiapine, and clonazepam - Monitor QTc & avoid any QTc-prolonging medications. (6) DVT prophylaxis: Lovenox 60 mg SQ Q12h -> Intermediate dosing per hospital policy and supported by recent literature CTA chest for PE-> no PE CW viral pneumonia (7) Obesity (BMI 30.0-34.9): Admission and Anticipated Discharge Date Admission Date: December 04, 2020 Subjective patient doing much better, down to 30L and 50% FiO2, breathing easier, less coughing laying prone a lot, eating well, had a BM yesterday, no fever/chills reviewed labs, glucose stable he is sleeping well, no chest pain, mood is stable discussed that it is a good sign he is improving, will likely be here through the weekend Review of Systems Review of Systems: All systems reviewed & are unremarkable except as noted in Subjective Physical Exam Constitutional: well developed and + obese; no acute distress Neck: trachea midline, no thyromegaly Respiratory: + tachypneic; no respiratory distress and no labored breathing Auscultation: lungs clear to auscultation bilaterally Cardiovascular: RRR, no murmur, no edema Gastrointestinal (Abdomen): normal bowel sounds, soft, nontender, no hepatosplenomegaly Musculoskeletal: no cyanosis or clubbing, extremities motor strength 5/5 Skin: no rashes, warm and dry Neurologic: patellar DTR's 2+ bilat, sensation intact and PERRL, EOMI, accommodation nl, no face palsy, no dysarthria Psychiatric: A+Ox3, euthymic affect Lymphatic: no cervical or axillary lymphadenopathy Results & Data Results & Data ([facility]) Vital Signs (Past 12 Hours) Vital Signs Temp Pulse Pulse Resp BP Pulse Ox 12/08/20 10:45 102 H 20 94 12/08/20 08:00 94 H 12/08/20 07:18 36.7 C 95 H 23 105/74 91 12/08/20 07:08 93 H 18 93 12/08/20 05:00 36.8 C 93 H 20 135/87 93 12/08/20 04:00 84 16 94 12/08/20 02:45 85 22 92 12/08/20 00:07 37.1 C 92 H 16 149/93 H 95 Laboratory Results Laboratory Results - last 24 hr 12/07/20 12/07/20 12/08/20 16:17 19:53 07:16 POC Glucose 207 H 165 H 131 H Medications Administered Current Inpatient Medications Acetaminophen (Acetaminophen 325 Mg Tab) 650 mg PO Q4H PRN PRN Reason: pain/fever Stop: 01/03/21 16:55 Last Admin: 12/07/20 21:40 Dose: 650 mg Documented by: Albuterol (Albuterol Hfa 8 Gm Inhaler) 2 puffs INH Q4H PRN PRN Reason: Shortness Of Breath Or Wheezing Stop: 01/03/21 16:55 Last Admin: 12/06/20 03:38 Dose: 2 puffs Documented by: Albuterol (Albuterol Hfa 8 Gm Inhaler) 2 puffs INH QIDR [facility] Stop: 01/04/21 18:59 Last Admin: 12/08/20 10:44 Dose: 2 puffs Documented by: Bupropion HCl (Bupropion Hcl 100 Mg Tablet) 100 mg PO QAM [facility] Stop: 01/04/21 08:59 Last Admin: 12/08/20 08:31 Dose: 100 mg Documented by: Clonazepam (Clonazepam 0.5 Mg Tab) 1.5 mg PO HS [facility] Stop: 01/03/21 20:59 Last Admin: 12/07/20 21:07 Dose: 1.5 mg Documented by: Dextrose (Dextrose 50% 50 Ml Syringe) 25 - 50 ml IV UD PRN; Protocol PRN Reason: Hypoglycemia Protocol Stop: 01/03/21 16:55 Doxycycline Hyclate (Doxycycline Hyclate 100 Mg Cap) 100 mg PO BID [facility]; Protocol Stop: 12/11/20 10:59 Last Admin: 12/08/20 08:31 Dose: 100 mg Documented by: Enoxaparin Sodium (Enoxaparin Inj 60 Mg/0.6 Ml Syr) 60 mg SQ Q12H [facility] Stop: 01/03/21 20:59 Last Admin: 12/08/20 08:32 Dose: 60 mg Documented by: Glucagon (Glucagon For Inj 1 Mg Vial) 1 mg SQ UD PRN; Protocol PRN Reason: Hypoglycemia Protocol Stop: 01/03/21 16:55 Glucose (Glucose 10 Tabs/Tube) 4 - 8 tabs PO UD PRN; Protocol PRN Reason: Hypoglycemia Protocol Stop: 01/03/21 16:55 Glucose (Glucose 40% Gel 15 Gm Tube) 15 - 30 gm PO UD PRN; Protocol PRN Reason: Hypoglycemia Protocol Stop: 01/03/21 16:55 Guaifenesin (Guaifenesin 600 Mg Tabcr) 1,200 mg PO Q12 [facility] Stop: 01/05/21 20:59 Last Admin: 12/08/20 08:32 Dose: 1,200 mg Documented by: Guaifenesin/Codeine Phosphate (Guaifenesin/Codeine 200mg/20mg 10ml Udc) 10 ml PO Q6H PRN PRN Reason: Cough Stop: 01/03/21 16:55 Remdesivir 100 mg/ Sodium (Chloride) 250 mls @ 250 mls/hr IV Q24H [facility]; Protocol Stop: 12/09/20 12:59 Last Infusion: 12/07/20 14:04 Dose: Infused Documented by: Dexamethasone 6 mg/ Syringe 1.5 mls @ 1 mls/min IV DAILY [facility] Stop: 01/05/21 08:59 Last Admin: 12/08/20 08:33 Dose: 1 mls/min Documented by: Insulin Aspart (Insulin Aspart 100 Units/Ml 3 Ml Pen) 0 units SC ACHS [facility] Stop: 01/03/21 16:55 Last Admin: 12/08/20 08:34 Dose: 17 units Documented by: Insulin Glargine (Insulin Glargine Solostar 100 Units/Ml 3 Ml Pen) 30 units SC DAILY [facility]; Protocol Stop: 01/04/21 12:14 Last Admin: 12/08/20 08:33 Dose: 30 units Documented by: Insulin Human NPH (Insulin Human Nph) 40 units SC DAILY [facility] Stop: 01/04/21 08:59 Last Admin: 12/08/20 08:33 Dose: 40 units Documented by: [place] Carbonate ([place] Carbonate 300 Mg Tab) 600 mg PO [facility] Stop: 01/03/21 20:59 Last Admin: 12/07/20 21:09 Dose: 600 mg Documented by: Miscellaneous (Carbohydrates For Hypoglycemia ) 15 - 30 gm PO UD PRN PRN Reason: Hypoglycemia Protocol Stop: 01/03/21 16:55 Miscellaneous Information (Pharmacy Glycemic Mgmt Consult) 1 ea N/A UD PRN; Protocol PRN Reason: Consult Stop: 01/03/21 17:12 Ondansetron HCl (Ondansetron Inj 2 Mg/Ml 2 Ml Vial) 4 mg IV Q6H PRN PRN Reason: Nausea Stop: 01/04/21 16:58 Pantoprazole Sodium (Pantoprazole 40 Mg Tab) 40 mg PO QAM [facility] Stop: 01/05/21 10:59 Last Admin: 12/08/20 08:31 Dose: 40 mg Documented by: Polyethylene Glycol (Polyethylene (Miralax) 17 Gm Pack) 17 gm PO DAILY PRN PRN Reason: Constipation Stop: 01/04/21 16:58 Quetiapine Fumarate (Quetiapine Fumarate 100 Mg Tablet) 100 mg PO [facility] Stop: 01/03/21 20:59 Last Admin: 12/07/20 21:08 Dose: 100 mg Documented by: Quetiapine Fumarate (Quetiapine Fumarate 200 Mg Tab) 200 mg PO HS [facility] Stop: 01/03/21 20:59 Last Admin: 12/07/20 21:09 Dose: 200 mg Documented by: Ropinirole HCl (Ropinirole Hcl 0.25 Mg Tablet) 0.5 mg PO [facility] Stop: 01/03/21 20:59 Last Admin: 12/07/20 21:08 Dose: 0.5 mg Documented by: Sodium Chloride (Sodium Chloride 0.9% 10ml Flush) 30 ml IV DAILY@1300 [facility] Stop: 12/09/20 13:01 Last Admin: 12/07/20 14:03 Dose: 30 ml Documented by: Zinc Sulfate (Zinc Sulfate 220 Mg Capsule) 220 mg PO DAILYBB [facility] Stop: 01/06/21 06:29 Last Admin: 12/08/20 05:47 Dose: 220 mg Documented by: PG Care Time/CCT Total # of Minutes Spent Total Time Spent: 32 Total Time Spent with Patient: Total time spent is greater than 50% in coordination of care (as documented) at patient's floor/unit and/or counseling patient: Coding Level of Care Code 28303 Subseq Hosp Care Lvl 3 Diagnoses Acute respiratory failure with hypoxia J96.01 Pneumonia due to COVID-19 virus U07.1; J12.82 Pneumonia J18.9 Diabetes E11.9 Schizoaffective disorder, bipolar type F25.0 DVT prophylaxis Z29.9 Obesity (BMI 30.0-34.9) E66.9
[2020-12-08] MEDS: REMDESIVIR 100 MG in SODIUM CHLORIDE 0.9% 230 ML IV SCH (12:25)
[2020-12-08] MEDS: SODIUM CHLORIDE 0.9% 10ML FLUSH IV SCH (13:37)
[2020-12-08] MEDS: rOPINIRole HCL 0.25 MG TABLET PO SCH (21:02)
[2020-12-08] MEDS: QUEtiapine FUMARATE 100 MG TABLET PO SCH (21:02)
[2020-12-08] MEDS: QUEtiapine FUMARATE 200 MG TAB PO SCH (21:03)
[2020-12-08] MEDS: LITHIUM CARBONATE 300 MG TAB PO SCH (21:03)
[2020-12-08] MEDS: clonazePAM 0.5 MG TAB PO SCH (21:08)
[2020-12-08] MEDS: POLYETHYLENE (MIRALAX) 17 GM PACK PO PRN (21:16)
[2020-12-09] MEDS: ZINC SULFATE 220 MG CAPSULE PO SCH (06:14)
[2020-12-09] MEDS: ALBUTEROL HFA 8 GM INHALER INH SCH (08:02)
[2020-12-09] MEDS: dexAMETHasone 6 MG in SYRINGE 0 ML IV SCH (08:34)
[2020-12-09] MEDS: guaiFENesin 600 MG TABCR PO SCH ×2 (08:35→21:37)
[2020-12-09] MEDS: ENOXAPARIN INJ 60 MG/0.6 ML SYR SQ SCH ×2 (08:35→21:38)
[2020-12-09] MEDS: DOXYCYCLINE HYCLATE 100 MG CAP PO SCH ×2 (08:36→21:36)
[2020-12-09] MEDS: INSULIN GLARGINE SOLOSTAR 100 UNITS/ML 3 ML PEN SC SCH (08:36)
[2020-12-09] MEDS: PANTOprazole 40 MG TAB PO SCH (08:36)
[2020-12-09] MEDS: buPROPion HCl 100 MG TABLET PO SCH (08:36)
[2020-12-09] MEDS: INSULIN HUMAN NPH SC SCH (08:37)
[2020-12-09] MEDS: INSULIN ASPART 100 UNITS/ML 3 ML PEN SC SCH ×4 (08:38→21:46)
[2020-12-09] MEDS: POLYETHYLENE (MIRALAX) 17 GM PACK PO PRN (09:22)
[2020-12-09] MEDS ORDERED: bisacodyL 10 MG SUPP PR PRN (10:10)
[2020-12-09] MEDS: REMDESIVIR 100 MG in SODIUM CHLORIDE 0.9% 230 ML IV SCH (11:53)
--- NOTE | 2020-12-09 12:46 | Hospitalist Progress Note ---
Date of Service December 09, 2020 Assessment & Plan (1) Acute respiratory failure with hypoxia: improving a lot the past three days, down to 25L and 40% FiO2 using CPAP at night laying prone as much as he can prognosis is improving rapidly, anticipate him being here the rest of the week (2) Pneumonia due to COVID-19 virus: First symptoms on 11/26/2020, admitted here on 12/04 Dexamethasone 6 mg IV daily x 10 days total, today is day 6 Remdesivir per protocol Tocilizumab administered on 12/06 due to worsening condition, high CRP -High flow oxygen 25 L, down to 40% FiO2, big improvement since Monday - Doxycycline 100mg BID started 12/06 per pulmonology, complete 5 days, day 4 today - lay prone as much as possible, he is compliant improving prognosis (3) Pneumonia: multifocal pneumonia due to COVID doxycycline added on 12/06 (4) Diabetes: Last A1c was 5.3% in 2017. - Hold metformin while inpatient - Sliding scale insulin, glycemic pharmacy oversight due to steroids - A1c 10.5 monitor for hypoglycemia, no episodes has high sugars today (5) Schizoaffective disorder, bipolar type: Calm and without any present symptoms. No acute needs. EKG in the ED showed QTc of 486. [place] level at goal on admission. - Continue home lithium, bupropion, quetiapine, and clonazepam - Monitor QTc & avoid any QTc-prolonging medications. (6) DVT prophylaxis: Lovenox 60 mg SQ Q12h -> Intermediate dosing per hospital policy and supported by recent literature CTA chest for PE-> no PE CW viral pneumonia (7) Obesity (BMI 30.0-34.9): Admission and Anticipated Discharge Date Admission Date: December 04, 2020 Subjective patient doing really well, all the way down to 25L and 40% FiO2 on high flow he has been laying prone most of the day he is sitting up now, eating lunch, no distress at all no cough, no chest pain, no fever c/o constipation, I increased his Miralax to BID and will try suppository no labs today Review of Systems Review of Systems: All systems reviewed & are unremarkable except as noted in Subjective Constitutional: no fever, no fatigue and no weakness Respiratory: + dyspnea on exertion; no cough and no dyspnea Cardiovascular: no chest pain and no edema Gastrointestinal: + constipation Physical Exam Constitutional: well developed and + obese; no acute distress Neck: trachea midline, no thyromegaly Respiratory: no respiratory distress and no labored breathing Auscultation: lungs clear to auscultation bilaterally Cardiovascular: RRR, no murmur, no edema Gastrointestinal (Abdomen): normal bowel sounds, soft, nontender, no hepatosplenomegaly Musculoskeletal: no cyanosis or clubbing, extremities motor strength 5/5 Skin: no rashes, warm and dry Neurologic: patellar DTR's 2+ bilat, sensation intact and PERRL, EOMI, accommodation nl, no face palsy, no dysarthria Psychiatric: A+Ox3, euthymic affect Lymphatic: no cervical or axillary lymphadenopathy Results & Data Results & Data ([facility]) Vital Signs (Past 12 Hours) Vital Signs Temp Pulse Pulse Resp BP BP Pulse Ox 12/09/20 11:32 97 H 18 90 12/09/20 11:18 36.6 C 98 H 26 H 100/76 88 L 12/09/20 08:03 103 H 18 90 12/09/20 08:02 103 H 18 90 12/09/20 07:42 86 12/09/20 07:16 36.9 C 104 H 24 116/90 89 L 12/09/20 03:32 93 H 16 90 12/09/20 03:29 36.5 C 92 H 20 101/68 89 L Laboratory Results Laboratory Results - last 24 hr 12/08/20 12/08/20 12/09/20 16:25 20:30 07:14 POC Glucose 176 H 167 H 125 H 12/09/20 11:16 POC Glucose 251 H Medications Administered Current Inpatient Medications Acetaminophen (Acetaminophen 325 Mg Tab) 650 mg PO Q4H PRN PRN Reason: pain/fever Stop: 01/03/21 16:55 Last Admin: 12/07/20 21:40 Dose: 650 mg Documented by: Albuterol (Albuterol Hfa 8 Gm Inhaler) 2 puffs INH Q4H PRN PRN Reason: Shortness Of Breath Or Wheezing Stop: 01/03/21 16:55 Last Admin: 12/06/20 03:38 Dose: 2 puffs Documented by: Bisacodyl (Bisacodyl 10 Mg Supp) 10 mg [place] DAILY PRN PRN Reason: Constipation Stop: 01/08/21 10:09 Bupropion HCl (Bupropion Hcl 100 Mg Tablet) 100 mg PO QAM [facility] Stop: 01/04/21 08:59 Last Admin: 12/09/20 08:36 Dose: 100 mg Documented by: Clonazepam (Clonazepam 0.5 Mg Tab) 1.5 mg PO HS [facility] Stop: 01/03/21 20:59 Last Admin: 12/08/20 21:08 Dose: 1.5 mg Documented by: Dextrose (Dextrose 50% 50 Ml Syringe) 25 - 50 ml IV UD PRN; Protocol PRN Reason: Hypoglycemia Protocol Stop: 01/03/21 16:55 Doxycycline Hyclate (Doxycycline Hyclate 100 Mg Cap) 100 mg PO BID [facility]; Protocol Stop: 12/11/20 10:59 Last Admin: 12/09/20 08:36 Dose: 100 mg Documented by: Enoxaparin Sodium (Enoxaparin Inj 60 Mg/0.6 Ml Syr) 60 mg SQ Q12H [facility] Stop: 01/03/21 20:59 Last Admin: 12/09/20 08:35 Dose: 60 mg Documented by: Glucagon (Glucagon For Inj 1 Mg Vial) 1 mg SQ UD PRN; Protocol PRN Reason: Hypoglycemia Protocol Stop: 01/03/21 16:55 Glucose (Glucose 10 Tabs/Tube) 4 - 8 tabs PO UD PRN; Protocol PRN Reason: Hypoglycemia Protocol Stop: 01/03/21 16:55 Glucose (Glucose 40% Gel 15 Gm Tube) 15 - 30 gm PO UD PRN; Protocol PRN Reason: Hypoglycemia Protocol Stop: 01/03/21 16:55 Guaifenesin (Guaifenesin 600 Mg Tabcr) 1,200 mg PO Q12 [facility] Stop: 01/05/21 20:59 Last Admin: 12/09/20 08:35 Dose: 1,200 mg Documented by: Guaifenesin/Codeine Phosphate (Guaifenesin/Codeine 200mg/20mg 10ml Udc) 10 ml PO Q6H PRN PRN Reason: Cough Stop: 01/03/21 16:55 Remdesivir 100 mg/ Sodium (Chloride) 250 mls @ 250 mls/hr IV Q24H [facility]; Protocol Stop: 12/09/20 12:59 Last Admin: 12/09/20 11:53 Dose: 250 mls/hr Documented by: Dexamethasone 6 mg/ Syringe 1.5 mls @ 1 mls/min IV DAILY [facility] Stop: 01/05/21 08:59 Last Admin: 12/09/20 08:34 Dose: 1 mls/min Documented by: Insulin Aspart (Insulin Aspart 100 Units/Ml 3 Ml Pen) 0 units SC ACHS [facility] Stop: 01/03/21 16:55 Last Admin: 12/09/20 08:38 Dose: 26 units Documented by: Insulin Glargine (Insulin Glargine Solostar 100 Units/Ml 3 Ml Pen) 30 units SC DAILY [facility]; Protocol Stop: 01/04/21 12:14 Last Admin: 12/09/20 08:36 Dose: 30 units Documented by: Insulin Human NPH (Insulin Human Nph) 40 units SC DAILY [facility] Stop: 01/04/21 08:59 Last Admin: 12/09/20 08:37 Dose: 40 units Documented by: [place] Carbonate ([place] Carbonate 300 Mg Tab) 600 mg PO [facility] Stop: 01/03/21 20:59 Last Admin: 12/08/20 21:03 Dose: 600 mg Documented by: Miscellaneous (Carbohydrates For Hypoglycemia ) 15 - 30 gm PO UD PRN PRN Reason: Hypoglycemia Protocol Stop: 01/03/21 16:55 Miscellaneous Information (Pharmacy Glycemic Mgmt Consult) 1 ea N/A UD PRN; Protocol PRN Reason: Consult Stop: 01/03/21 17:12 Ondansetron HCl (Ondansetron Inj 2 Mg/Ml 2 Ml Vial) 4 mg IV Q6H PRN PRN Reason: Nausea Stop: 01/04/21 16:58 Pantoprazole Sodium (Pantoprazole 40 Mg Tab) 40 mg PO QAM [facility] Stop: 01/05/21 10:59 Last Admin: 12/09/20 08:36 Dose: 40 mg Documented by: Polyethylene Glycol (Polyethylene (Miralax) 17 Gm Pack) 17 gm PO BIDM [facility] Stop: 01/08/21 16:59 Quetiapine Fumarate (Quetiapine Fumarate 100 Mg Tablet) 100 mg PO [facility] Stop: 01/03/21 20:59 Last Admin: 12/08/20 21:02 Dose: 100 mg Documented by: Quetiapine Fumarate (Quetiapine Fumarate 200 Mg Tab) 200 mg PO [facility] Stop: 01/03/21 20:59 Last Admin: 12/08/20 21:03 Dose: 200 mg Documented by: Ropinirole HCl (Ropinirole Hcl 0.25 Mg Tablet) 0.5 mg PO HS [facility] Stop: 01/03/21 20:59 Last Admin: 12/08/20 21:02 Dose: 0.5 mg Documented by: Sodium Chloride (Sodium Chloride 0.9% 10ml Flush) 30 ml IV DAILY@1300 [facility] Stop: 12/09/20 13:01 Last Admin: 12/08/20 13:37 Dose: 30 ml Documented by: Zinc Sulfate (Zinc Sulfate 220 Mg Capsule) 220 mg PO DAILYBB [facility] Stop: 01/06/21 06:29 Last Admin: 12/09/20 06:14 Dose: 220 mg Documented by: PG Care Time/CCT Total # of Minutes Spent Total Time Spent with Patient: Total time spent is greater than 50% in coordination of care (as documented) at patient's floor/unit and/or counseling patient: Coding Level of Care Code 85636 Subseq Hosp Care Lvl 3 Diagnoses Acute respiratory failure with hypoxia J96.01 Pneumonia due to COVID-19 virus U07.1; J12.82 Pneumonia J18.9 Diabetes E11.9 Schizoaffective disorder, bipolar type F25.0 DVT prophylaxis Z29.9 Obesity (BMI 30.0-34.9) E66.9
[2020-12-09] MEDS: SODIUM CHLORIDE 0.9% 10ML FLUSH IV SCH (12:55)
--- NOTE | 2020-12-09 13:25 | Pharmacy Report ---
Pharmacy Glycemic Short Note 2 - Date of Service December 09, 2020 - Glycemic Short BSG Results (Last 24 hours): 12/08/20 12/08/20 12/09/20 16:25 20:30 07:14 POC Glucose 176 H 167 H 125 H 12/09/20 11:16 POC Glucose 251 H OUTPATIENT ANTIDIABETIC REGIMEN: * Metformin ER 1000 mg PO PM * HbA1c = 10.5% (12/05/20) ASSESSMENT: 12/09: * Patient received total of 140 units of insulin yesterday, of which 70 units were basal * Fasting BSG 125 mg/dL - continue same basal * Lunch BSGs tend to be elevated each day, will tighten CR more at breakfast 12/07: * Mr. Durand received a total of 121 units of insulin yesterday * 70 units basal + 51 units bolus * BSGs were uncontrolled yesterday: [phone] mg/dL * Fasting BSG improved today at 152 mg/dL * No change in Lantus dose * Continue NPH while patient is receiving IV Dexamethasone (steroids changed from PO to IV yesterday) * Postprandial elevations in BSGs yesterday * Tighten correction and carb ratio 12/06: * Patient received a total of 110 units of insulin yesterday (60 basal + 50 bolus) * BSGs were: [phone] mg/dL, uncontrolled * Oxygen requirements increased yesterday and patient was transferred to Covid unit * Fasting BSG this AM was 174 mg/dL * Will increase Lantus to 30 units daily - prefer titrating Lantus as patient will require once daily basal upon discharge given HbA1c * Steroid induced hyperglycemia noted in postprandial BSGs so tightened carb ratio slightly 12/05: * 35 yo M admitted secondary to Covid-19 Pneumonia. Pharmacy has been consulted for assistance with inpatient glycemic management. * BSG was elevated upon admission at 280 mg/dL, and patient received 10 mg of IV Dexamethasone in the ED. Pharmacy was consulted at dinner time when BSG was 338 mg/dL. He was given 40 units of NPH and started on Novolog based on weight and stress of 3. * BSGs trended down nicely last evenin-173 mg/dL and overnight check was 154 mg/dL * Fasting BSG was elevated at 216 mg/dL this AM. * Will continue with 40 units of NPH today as steroids have been decreased and changed to PO. * No change to Novolog at this time PLAN FOR INPATIENT GLYCEMIC CONTROL: * Hold outpatient oral diabetes medications * Basal insulin - No change * NPH 40 units SC AM w/ IV dexamethasone (hold if dexamethasone is held/discontinued) * Lantus 30 units SC daily * Bolus insulin - tightened CF/CR * NovoLog per scale ACHS or Q6hrs while NPO * Goal Range: Low 100 mg/dL - High 140 mg/dL * Correction Factor: 10 mg/dL/unit * Nutritional / Prandial insulin per carb ratio of 1 unit per 3 grams CHO consumed PLAN FOR DISCHARGE: * HbA1c was 10.5% from this admission. Likely that patient will require insulin upon discharge given HbA1c. * Recommend patient establish with local Endocrinology office upon discharge for help with T2DM. * Recommend titrating Metformin ER upwards by 500 mg/week until goal dose of 2000 mg PO PM is achieved. * Vitamin B12 supplementation is likely required with long-term Metformin use. * Will continue to trend insulin requirements while inpatient but discharge rec ommendations will depend on if patient is sent home with steroids.
[2020-12-09] MEDS: POLYETHYLENE (MIRALAX) 17 GM PACK PO SCH (16:53)
[2020-12-09] MEDS: LITHIUM CARBONATE 300 MG TAB PO SCH (21:37)
[2020-12-09] MEDS: QUEtiapine FUMARATE 200 MG TAB PO SCH (21:37)
[2020-12-09] MEDS: rOPINIRole HCL 0.25 MG TABLET PO SCH (21:37)
[2020-12-09] MEDS: QUEtiapine FUMARATE 100 MG TABLET PO SCH (21:38)
[2020-12-09] MEDS: clonazePAM 0.5 MG TAB PO SCH (21:42)
[2020-12-10] MEDS: ZINC SULFATE 220 MG CAPSULE PO SCH (07:06)
[2020-12-10] MEDS: buPROPion HCl 100 MG TABLET PO SCH (08:29)
[2020-12-10] MEDS: DOXYCYCLINE HYCLATE 100 MG CAP PO SCH ×2 (08:29→21:22)
[2020-12-10] MEDS: PANTOprazole 40 MG TAB PO SCH (08:29)
[2020-12-10] MEDS: INSULIN GLARGINE SOLOSTAR 100 UNITS/ML 3 ML PEN SC SCH (08:31)
[2020-12-10] MEDS: dexAMETHasone 6 MG in SYRINGE 0 ML IV SCH (08:31)
[2020-12-10] MEDS: guaiFENesin 600 MG TABCR PO SCH ×2 (08:31→21:22)
[2020-12-10] MEDS: ENOXAPARIN INJ 60 MG/0.6 ML SYR SQ SCH ×2 (08:31→21:22)
[2020-12-10] MEDS: INSULIN ASPART 100 UNITS/ML 3 ML PEN SC SCH ×4 (08:33→21:25)
[2020-12-10] MEDS: POLYETHYLENE (MIRALAX) 17 GM PACK PO SCH ×2 (08:33→21:25)
[2020-12-10] MEDS ORDERED: INSULIN HUMAN NPH SC SCH (09:00)
--- NOTE | 2020-12-10 09:14 | Hospitalist Progress Note ---
Date of Service December 10, 2020 Assessment & Plan (1) Acute respiratory failure with hypoxia: improving a lot the past four days, now on wall high flow, 10L, no distress at all using CPAP at night laying prone as much as he can prognosis is improving rapidly, anticipate him being here the rest of the week but might be home by Monday/Monday (2) Pneumonia due to COVID-19 virus: First symptoms on 11/26/2020, admitted here on 12/04 Dexamethasone 6 mg IV daily x 10 days total, today is day 7 Remdesivir per protocol, completed Tocilizumab administered on 12/06 due to worsening condition, high CRP -High flow oxygen, down to wall high flow today, off Vapotherm, big improvement since Monday - Doxycycline 100mg BID started 12/06 per pulmonology, complete 5 days, day 5 today - lay prone as much as possible, he is compliant rapidly improving prognosis (3) Pneumonia: multifocal pneumonia due to COVID doxycycline added on 12/06, complete today (4) Diabetes: Last A1c was 5.3% in 2017. - Hold metformin while inpatient - Sliding scale insulin, glycemic pharmacy oversight due to steroids - A1c 10.5 monitor for hypoglycemia, no episodes has high sugars today, tighten coverage (5) Schizoaffective disorder, bipolar type: Calm and without any present symptoms. No acute needs. EKG in the ED showed QTc of 486. [place] level at goal on admission. - Continue home lithium, bupropion, quetiapine, and clonazepam - Monitor QTc & avoid any QTc-prolonging medications. (6) DVT prophylaxis: Lovenox 60 mg SQ Q12h -> Intermediate dosing per hospital policy and supported by recent literature CTA chest for PE-> no PE CW viral pneumonia (7) Obesity (BMI 30.0-34.9): Admission and Anticipated Discharge Date Admission Date: December 04, 2020 Subjective patient doing great today, says he feels great, continues to lay prone most of the time saturations stable on 10L wall high flow, has been off the Vapotherm since yesterday he continues to eat and drink well, feels stronger each day sugars are stable will downgrade him out of COVID unit and off tele monitor spoke with infection control, he can be off isolation precautions Review of Systems Review of Systems: All systems reviewed & are unremarkable except as noted in Subjective Physical Exam Constitutional: well developed and + obese; no acute distress Neck: trachea midline, no thyromegaly Respiratory: no respiratory distress and no labored breathing Auscultation: lungs clear to auscultation bilaterally Cardiovascular: RRR, no murmur, no edema Gastrointestinal (Abdomen): normal bowel sounds, soft, nontender, no hepatosplenomegaly Musculoskeletal: no cyanosis or clubbing, extremities motor strength 5/5 Skin: no rashes, warm and dry Neurologic: patellar DTR's 2+ bilat, sensation intact and PERRL, EOMI, accommodation nl, no face palsy, no dysarthria Psychiatric: A+Ox3, euthymic affect Lymphatic: no cervical or axillary lymphadenopathy Results & Data Results & Data ([facility]) Vital Signs (Past 12 Hours) Vital Signs Temp Pulse Resp BP BP Pulse Ox 12/10/20 07:21 36.7 C 103 H 18 119/82 89 L 12/10/20 03:53 37 C 86 18 112/82 96 12/10/20 00:04 36.8 C 114 H 20 118/73 91 Laboratory Results Laboratory Results - last 24 hr 12/09/20 12/09/20 12/09/20 11:16 16:13 20:52 POC Glucose 251 H 236 H 99 12/10/20 07:21 POC Glucose 154 H Medications Administered Current Inpatient Medications Acetaminophen (Acetaminophen 325 Mg Tab) 650 mg PO Q4H PRN PRN Reason: pain/fever Stop: 01/03/21 16:55 Last Admin: 12/07/20 21:40 Dose: 650 mg Documented by: Albuterol (Albuterol Hfa 8 Gm Inhaler) 2 puffs INH Q4H PRN PRN Reason: Shortness Of Breath Or Wheezing Stop: 01/03/21 16:55 Last Admin: 12/06/20 03:38 Dose: 2 puffs Documented by: Bisacodyl (Bisacodyl 10 Mg Supp) 10 mg SC DAILY PRN PRN Reason: Constipation Stop: 01/08/21 10:09 Bupropion HCl (Bupropion Hcl 100 Mg Tablet) 100 mg PO QAM [facility] Stop: 01/04/21 08:59 Last Admin: 12/10/20 08:29 Dose: 100 mg Documented by: Clonazepam (Clonazepam 0.5 Mg Tab) 1.5 mg PO HS [facility] Stop: 01/03/21 20:59 Last Admin: 12/09/20 21:42 Dose: 1.5 mg Documented by: Dextrose (Dextrose 50% 50 Ml Syringe) 25 - 50 ml IV UD PRN; Protocol PRN Reason: Hypoglycemia Protocol Stop: 01/03/21 16:55 Doxycycline Hyclate (Doxycycline Hyclate 100 Mg Cap) 100 mg PO BID [facility]; Protocol Stop: 12/11/20 10:59 Last Admin: 12/10/20 08:29 Dose: 100 mg Documented by: Enoxaparin Sodium (Enoxaparin Inj 60 Mg/0.6 Ml Syr) 60 mg SQ Q12H [facility] Stop: 01/03/21 20:59 Last Admin: 12/10/20 08:31 Dose: 60 mg Documented by: Glucagon (Glucagon For Inj 1 Mg Vial) 1 mg SQ UD PRN; Protocol PRN Reason: Hypoglycemia Protocol Stop: 01/03/21 16:55 Glucose (Glucose 10 Tabs/Tube) 4 - 8 tabs PO UD PRN; Protocol PRN Reason: Hypoglycemia Protocol Stop: 01/03/21 16:55 Glucose (Glucose 40% Gel 15 Gm Tube) 15 - 30 gm PO UD PRN; Protocol PRN Reason: Hypoglycemia Protocol Stop: 01/03/21 16:55 Guaifenesin (Guaifenesin 600 Mg Tabcr) 1,200 mg PO Q12 [facility] Stop: 01/05/21 20:59 Last Admin: 12/10/20 08:31 Dose: 1,200 mg Documented by: Guaifenesin/Codeine Phosphate (Guaifenesin/Codeine 200mg/20mg 10ml Udc) 10 ml PO Q6H PRN PRN Reason: Cough Stop: 01/03/21 16:55 Dexamethasone 6 mg/ Syringe 1.5 mls @ 1 mls/min IV DAILY [facility] Stop: 01/05/21 08:59 Last Admin: 12/10/20 08:31 Dose: 1 mls/min Documented by: Insulin Aspart (Insulin Aspart 100 Units/Ml 3 Ml Pen) 0 units SC 1130,1630,2100 [facility] Stop: 01/08/21 16:29 Last Admin: 12/09/20 21:46 Dose: Not Given Documented by: Insulin Aspart (Insulin Aspart 100 Units/Ml 3 Ml Pen) 0 units SC 0730 [facility] Stop: 01/09/21 07:29 Last Admin: 12/10/20 08:33 Dose: 33 units Documented by: Insulin Glargine (Insulin Glargine Solostar 100 Units/Ml 3 Ml Pen) 30 units SC DAILY [facility]; Protocol Stop: 01/04/21 12:14 Last Admin: 12/10/20 08:31 Dose: 30 units Documented by: Insulin Human NPH (Insulin Human Nph) 44 units SC DAILY [facility] Stop: 01/04/21 08:59 [place] Carbonate ([place] Carbonate 300 Mg Tab) 600 mg PO HS [facility] Stop: 01/03/21 20:59 Last Admin: 12/09/20 21:37 Dose: 600 mg Documented by: Miscellaneous (Carbohydrates For Hypoglycemia ) 15 - 30 gm PO UD PRN PRN Reason: Hypoglycemia Protocol Stop: 01/03/21 16:55 Miscellaneous Information (Pharmacy Glycemic Mgmt Consult) 1 ea N/A UD PRN; Protocol PRN Reason: Consult Stop: 01/03/21 17:12 Ondansetron HCl (Ondansetron Inj 2 Mg/Ml 2 Ml Vial) 4 mg IV Q6H PRN PRN Reason: Nausea Stop: 01/04/21 16:58 Pantoprazole Sodium (Pantoprazole 40 Mg Tab) 40 mg PO QAM [facility] Stop: 01/05/21 10:59 Last Admin: 12/10/20 08:29 Dose: 40 mg Documented by: Polyethylene Glycol (Polyethylene (Miralax) 17 Gm Pack) 17 gm PO BIDM [facility] Stop: 01/08/21 16:59 Last Admin: 12/10/20 08:33 Dose: 17 gm Documented by: Quetiapine Fumarate (Quetiapine Fumarate 100 Mg Tablet) 100 mg PO [facility] Stop: 01/03/21 20:59 Last Admin: 12/09/20 21:38 Dose: 100 mg Documented by: Quetiapine Fumarate (Quetiapine Fumarate 200 Mg Tab) 200 mg PO [facility] Stop: 01/03/21 20:59 Last Admin: 12/09/20 21:37 Dose: 200 mg Documented by: Ropinirole HCl (Ropinirole Hcl 0.25 Mg Tablet) 0.5 mg PO [facility] Stop: 01/03/21 20:59 Last Admin: 12/09/20 21:37 Dose: 0.5 mg Documented by: Zinc Sulfate (Zinc Sulfate 220 Mg Capsule) 220 mg PO DAILYBB [facility] Stop: 01/06/21 06:29 Last Admin: 12/10/20 07:06 Dose: 220 mg Documented by: PG Care Time/CCT Total # of Minutes Spent Total Time Spent with Patient: Total time spent is greater than 50% in coordination of care (as documented) at patient's floor/unit and/or counseling patient: Coding Level of Care Code 00168 Subseq Hosp Care Lvl 3 Diagnoses Acute respiratory failure with hypoxia J96.01 Pneumonia due to COVID-19 virus U07.1; J12.82 Pneumonia J18.9 Diabetes E11.9 Schizoaffective disorder, bipolar type F25.0 DVT prophylaxis Z29.9 Obesity (BMI 30.0-34.9) E66.9
[2020-12-10] MEDS: LITHIUM CARBONATE 300 MG TAB PO SCH (21:23)
[2020-12-10] MEDS: QUEtiapine FUMARATE 200 MG TAB PO SCH (21:23)
[2020-12-10] MEDS: rOPINIRole HCL 0.25 MG TABLET PO SCH (21:24)
[2020-12-10] MEDS: QUEtiapine FUMARATE 100 MG TABLET PO SCH (21:24)
[2020-12-10] MEDS: clonazePAM 0.5 MG TAB PO SCH (21:25)
[2020-12-11] MEDS: ZINC SULFATE 220 MG CAPSULE PO SCH (06:17)
[2020-12-11 07:14] LABS: Hematocrit (blood only) 46.2 % (42-52); Hemoglobin 16.1 g/dL (14.0-18.0); Mean Corpuscular Hemoglobin 30.6 pg (25-34); Mean Corpuscular Hgb Conc 34.8 g/dL (32-36); Mean Corpuscular Volume 87.8 fL (80-100); Mean Platelet Volume 10.3 fL (7.4-10.4); Platelet Count 401 K/uL (130-400); RDW Coefficient of Variation 13.1 % (11.5-14.5); RDW Standard Deviation 41.7 fL (36.4-46.3); Red Blood Count 5.26 M/uL (4.7-6.1); White Blood Count 11.41 K/uL (4.8-10.8)
[2020-12-11 07:39] LABS: BUN Creatinine Ratio 18.3 (10-20); C Reactive Protein 0.72 mg/dl (0-0.29); Calcium 9.6 mg/dl (8.5-10.1); Creatinine Clr Calc Pharmacy 127.8 ml/min; Est GFR (African American) 115.1; Est GFR (Non-African American) 99.3; Potassium 3.4 mmol/L (3.5-5.1)
[2020-12-11] MEDS: POLYETHYLENE (MIRALAX) 17 GM PACK PO SCH ×2 (08:37→15:46)
[2020-12-11] MEDS: DOXYCYCLINE HYCLATE 100 MG CAP PO SCH (08:39)
[2020-12-11] MEDS: buPROPion HCl 100 MG TABLET PO SCH (08:40)
[2020-12-11] MEDS: PANTOprazole 40 MG TAB PO SCH (08:40)
[2020-12-11] MEDS: dexAMETHasone 6 MG in SYRINGE 0 ML IV SCH (08:40)
[2020-12-11] MEDS: INSULIN ASPART 100 UNITS/ML 3 ML PEN SC SCH ×4 (08:40→21:23)
[2020-12-11] MEDS: ENOXAPARIN INJ 60 MG/0.6 ML SYR SQ SCH ×2 (08:41→20:36)
[2020-12-11] MEDS: guaiFENesin 600 MG TABCR PO SCH ×2 (08:41→20:35)
[2020-12-11] MEDS: INSULIN GLARGINE SOLOSTAR 100 UNITS/ML 3 ML PEN SC SCH (08:41)
[2020-12-11] MEDS: INSULIN HUMAN NPH SC SCH (08:42)
[2020-12-11] MEDS: POTASSIUM CHLORIDE CRTAB 20 MEQ TABCR PO SCH ×2 (08:46→20:34)
--- NOTE | 2020-12-11 12:03 | Pharmacy Report ---
Pharmacy Glycemic Short Note 2 - Date of Service December 11, 2020 - Glycemic Short BSG Results (Last 24 hours): 12/10/20 12/10/20 12/10/20 11:52 16:10 20:52 Glucose POC Glucose 178 H 185 H 134 H 12/11/20 12/11/20 12/11/20 06:15 07:38 11:27 Glucose 166 H POC Glucose 137 H 173 H OUTPATIENT ANTIDIABETIC REGIMEN: * Metformin ER 1000 mg PO PM * HbA1c = 10.5% (12/05/20) ASSESSMENT: 12/11: * BSGs well controlled over last 24 hrs * 154 units SQ insulin administered while tolerating a diet * Dexamethasone 6mg IV Q day continues * Fasting BSG 137 this AM w/ 80 units basal admin yesterday (Lantus + NPH) * Post-prandial BSGs well controlled - could increase NPH dose slightly 12/09: * Patient received total of 140 units of insulin yesterday, of which 70 units were basal * Fasting BSG 125 mg/dL - continue same basal * Lunch BSGs tend to be elevated each day, will tighten CR more at breakfast 12/07: * Mr. Durand received a total of 121 units of insulin yesterday * 70 units basal + 51 units bolus * BSGs were uncontrolled yesterday: [phone] mg/dL * Fasting BSG improved today at 152 mg/dL * No change in Lantus dose * Continue NPH while patient is receiving IV Dexamethasone (steroids changed from PO to IV yesterday) * Postprandial elevations in BSGs yesterday * Tighten correction and carb ratio PLAN FOR INPATIENT GLYCEMIC CONTROL: * Hold outpatient oral diabetes medications * Basal insulin - small increase in NPH only * NPH 50 units SC AM w/ IV dexamethasone (hold if dexamethasone is held/discontinued) * Lantus 30 units SC daily * Bolus insulin - no change * NovoLog per scale ACHS or Q6hrs while NPO * Goal Range: Low 100 mg/dL - High 140 mg/dL * Correction Factor: 10 mg/dL/unit * Nutritional / Prandial insulin per carb ratio of 1 unit per 1.5 grams CHO consumed w/ breakfast , 1 unit per 3gm CHO consumed w/ lunch and dinner PLAN FOR DISCHARGE: * HbA1c was 10.5% from this admission. Likely that patient will require insulin upon discharge given HbA1c. If patient agreeable to insulin administration the addition of once daily Lantus could be considered. Alternatively, one could also consider the addition of GLP1 agonist on discharge if patient agreeable to Sq injection and this medication is not cost prohibitive (may require prior auth). Either of these agents in combo with metformin would help lower patient's A1c. * Recommend patient establish with local Endocrinology office upon discharge for help with T2DM. * Recommend titrating Metformin ER upwards by 500 mg/week until goal dose of 2000 mg PO PM is achieved. * Vitamin B12 supplementation is likely required with long-term Metformin use. * Will continue to trend insulin requirements while inpatient but discharge recommendations will depend on if patient is sent home with steroids.
--- NOTE | 2020-12-11 12:04 | Hospitalist Progress Note ---
Date of Service December 11, 2020 Assessment & Plan (1) Acute respiratory failure with hypoxia: improving a lot the past five days, down to 1L today from Vapotherm just a few days ago using CPAP at night laying prone as much as he can prognosis is improving rapidly, anticipate him getting discharged tomorrow will get a two step in the morning to see if he needs oxygen on exertion (2) Pneumonia due to COVID-19 virus: First symptoms on 11/26/2020, admitted here on 12/04 Dexamethasone 6 mg IV daily x 10 days total, today is day 8 Remdesivir per protocol, completed Tocilizumab administered on 12/06 due to worsening condition, high CRP (CRP went from 14 to 0.7) - down to 1L from Vapotherm, big improvement since Monday - Doxycycline 100mg BID started 12/06 per pulmonology, completed 5 days - lay prone as much as possible, he is compliant rapidly improving prognosis, plan to send home tomorrow (3) Pneumonia: multifocal pneumonia due to COVID doxycycline added on 12/06, completed (4) Diabetes: Last A1c was 5.3% in 2017. - Hold metformin while inpatient - Sliding scale insulin, glycemic pharmacy oversight due to steroids - A1c 10.5 monitor for hypoglycemia, no episodes resume Metformin on discharge (5) Schizoaffective disorder, bipolar type: Calm and without any present symptoms. No acute needs. EKG in the ED showed QTc of 486. [place] level at goal on admission. - Continue home lithium, bupropion, quetiapine, and clonazepam - Monitor QTc & avoid any QTc-prolonging medications. (6) DVT prophylaxis: Lovenox 60 mg SQ Q12h -> Intermediate dosing per hospital policy and supported by recent literature CTA chest for PE-> no PE CW viral pneumonia (7) Obesity (BMI 30.0-34.9): Admission and Anticipated Discharge Date Admission Date: December 04, 2020 Subjective patient feels great, laying on his back, no distress down to 1L NC, he is 90%, he is really happy to be down to 1L I told him we will get a two step tomorrow and get him home either on room air or on a little bit of oxygen he is eating well, making urine, moving bowels labs reviewed, CRP down to 0.7 from 14 no other complaints Review of Systems Review of Systems: All systems reviewed & are unremarkable except as noted in Subjective Physical Exam Constitutional: well developed and + obese; no acute distress Neck: trachea midline, no thyromegaly Respiratory: no respiratory distress and no labored breathing Auscultation: lungs clear to auscultation bilaterally Cardiovascular: RRR, no murmur, no edema Gastrointestinal (Abdomen): normal bowel sounds, soft, nontender, no hepatosplenomegaly Musculoskeletal: no cyanosis or clubbing, extremities motor strength 5/5 Skin: no rashes, warm and dry Neurologic: patellar DTR's 2+ bilat, sensation intact and PERRL, EOMI, accommodation nl, no face palsy, no dysarthria Psychiatric: A+Ox3, euthymic affect Lymphatic: no cervical or axillary lymphadenopathy Results & Data Results & Data ([facility]) Vital Signs (Past 12 Hours) Vital Signs Temp Pulse Resp BP Pulse Ox 12/11/20 11:02 37.0 C 107 H 20 102/77 90 12/11/20 10:45 90 12/11/20 10:43 87 L 12/11/20 09:59 91 12/11/20 09:15 94 12/11/20 08:30 95 12/11/20 07:39 36.9 C 94 H 20 120/83 96 12/11/20 03:44 96 Laboratory Results Laboratory Results - last 24 hr 12/10/20 12/10/20 12/11/20 16:10 20:52 06:15 WBC 11.41 H RBC 5.26 Hgb 16.1 Hct 46.2 MCV 87.8 MCH 30.6 MCHC 34.8 RDW Std Deviation 41.7 RDW Coeff of [place]cell[place] 13.1 Plt Count 401 H MPV 10.3 Sodium Potassium Chloride Carbon Dioxide Anion Gap BUN Creatinine Est Cr Clr Drug Dosing Est GFR ( Amer) Est GFR (Non-Af Amer) BUN/Creatinine Ratio Glucose POC Glucose 185 H 134 H Calcium C-Reactive Protein 12/11/20 12/11/20 12/11/20 06:15 07:38 11:27 WBC RBC Hgb Hct MCV MCH MCHC RDW Std Deviation RDW Coeff of [place] Plt Count MPV Sodium 136 Potassium 3.4 L Chloride 106 Carbon Dioxide 21 Anion Gap 8.0 BUN 18 Creatinine 0.97 Est Cr Clr Drug Dosing 127.8 Est GFR ( Amer) 115.1 Est GFR (Non-Af Amer) 99.3 BUN/Creatinine Ratio 18.3 Glucose 166 H POC Glucose 137 H 173 H Calcium 9.6 C-Reactive Protein 0.72 H Medications Administered Current Inpatient Medications Acetaminophen (Acetaminophen 325 Mg Tab) 650 mg PO Q4H PRN PRN Reason: pain/fever Stop: 01/03/21 16:55 Last Admin: 12/07/20 21:40 Dose: 650 mg Documented by: Albuterol (Albuterol Hfa 8 Gm Inhaler) 2 puffs INH Q4H PRN PRN Reason: Shortness Of Breath Or Wheezing Stop: 01/03/21 16:55 Last Admin: 12/06/20 03:38 Dose: 2 puffs Documented by: Bisacodyl (Bisacodyl 10 Mg Supp) 10 mg [place] DAILY PRN PRN Reason: Constipation Stop: 01/08/21 10:09 Bupropion HCl (Bupropion Hcl 100 Mg Tablet) 100 mg PO QAM [facility] Stop: 01/04/21 08:59 Last Admin: 12/11/20 08:40 Dose: 100 mg Documented by: Clonazepam (Clonazepam 0.5 Mg Tab) 1.5 mg PO HS [facility] Stop: 01/03/21 20:59 Last Admin: 12/10/20 21:25 Dose: 1.5 mg Documented by: Dextrose (Dextrose 50% 50 Ml Syringe) 25 - 50 ml IV UD PRN; Protocol PRN Reason: Hypoglycemia Protocol Stop: 01/03/21 16:55 Enoxaparin Sodium (Enoxaparin Inj 60 Mg/0.6 Ml Syr) 60 mg SQ Q12H [facility] Stop: 01/03/21 20:59 Last Admin: 12/11/20 08:41 Dose: 60 mg Documented by: Glucagon (Glucagon For Inj 1 Mg Vial) 1 mg SQ UD PRN; Protocol PRN Reason: Hypoglycemia Protocol Stop: 01/03/21 16:55 Glucose (Glucose 10 Tabs/Tube) 4 - 8 tabs PO UD PRN; Protocol PRN Reason: Hypoglycemia Protocol Stop: 01/03/21 16:55 Glucose (Glucose 40% Gel 15 Gm Tube) 15 - 30 gm PO UD PRN; Protocol PRN Reason: Hypoglycemia Protocol Stop: 01/03/21 16:55 Guaifenesin (Guaifenesin 600 Mg Tabcr) 1,200 mg PO Q12 [facility] Stop: 01/05/21 20:59 Last Admin: 12/11/20 08:41 Dose: 1,200 mg Documented by: Guaifenesin/Codeine Phosphate (Guaifenesin/Codeine 200mg/20mg 10ml Udc) 10 ml PO Q6H PRN PRN Reason: Cough Stop: 01/03/21 16:55 Dexamethasone 6 mg/ Syringe 1.5 mls @ 1 mls/min IV DAILY [facility] Stop: 01/05/21 08:59 Last Admin: 12/11/20 08:40 Dose: 1 mls/min Documented by: Insulin Aspart (Insulin Aspart 100 Units/Ml 3 Ml Pen) 0 units SC 1130,1630,2100 [facility] Stop: 01/08/21 16:29 Last Admin: 12/10/20 21:25 Dose: Not Given Documented by: Insulin Aspart (Insulin Aspart 100 Units/Ml 3 Ml Pen) 0 units SC 0730 [facility] Stop: 01/09/21 07:29 Last Admin: 12/11/20 08:40 Dose: 31 units Documented by: Insulin Glargine (Insulin Glargine Solostar 100 Units/Ml 3 Ml Pen) 30 units SC DAILY [facility]; Protocol Stop: 01/04/21 12:14 Last Admin: 12/11/20 08:41 Dose: 30 units Documented by: Insulin Human NPH (Insulin Human Nph) 50 units SC DAILY [facility] Stop: 01/10/21 08:59 Last Admin: 12/11/20 08:42 Dose: 50 units Documented by: [place] Carbonate ([place] Carbonate 300 Mg Tab) 600 mg PO HS [facility] Stop: 01/03/21 20:59 Last Admin: 12/10/20 21:23 Dose: 600 mg Documented by: Miscellaneous (Carbohydrates For Hypoglycemia ) 15 - 30 gm PO UD PRN PRN Reason: Hypoglycemia Protocol Stop: 01/03/21 16:55 Miscellaneous Information (Pharmacy Glycemic Mgmt Consult) 1 ea N/A UD PRN; Protocol PRN Reason: Consult Stop: 01/03/21 17:12 Ondansetron HCl (Ondansetron Inj 2 Mg/Ml 2 Ml Vial) 4 mg IV Q6H PRN PRN Reason: Nausea Stop: 01/04/21 16:58 Pantoprazole Sodium (Pantoprazole 40 Mg Tab) 40 mg PO QAM [facility] Stop: 01/05/21 10:59 Last Admin: 12/11/20 08:40 Dose: 40 mg Documented by: Polyethylene Glycol (Polyethylene (Miralax) 17 Gm Pack) 17 gm PO BIDM [facility] Stop: 01/08/21 16:59 Last Admin: 12/11/20 08:37 Dose: Not Given Documented by: Potassium Chloride (Potassium Chloride Crtab 20 Meq Tabcr) 20 meq PO BID [facility] Stop: 12/12/20 21:01 Last Admin: 12/11/20 08:46 Dose: 20 meq Documented by: Quetiapine Fumarate (Quetiapine Fumarate 100 Mg Tablet) 100 mg PO [facility] Stop: 01/03/21 20:59 Last Admin: 12/10/20 21:24 Dose: 100 mg Documented by: Quetiapine Fumarate (Quetiapine Fumarate 200 Mg Tab) 200 mg PO HS [facility] Stop: 01/03/21 20:59 Last Admin: 12/10/20 21:23 Dose: 200 mg Documented by: Ropinirole HCl (Ropinirole Hcl 0.25 Mg Tablet) 0.5 mg PO HS [facility] Stop: 01/03/21 20:59 Last Admin: 12/10/20 21:24 Dose: 0.5 mg Documented by: Zinc Sulfate (Zinc Sulfate 220 Mg Capsule) 220 mg PO DAILYBB [facility] Stop: 01/06/21 06:29 Last Admin: 12/11/20 06:17 Dose: 220 mg Documented by: PG Care Time/CCT Total # of Minutes Spent Total Time Spent with Patient: Total time spent is greater than 50% in coordination of care (as documented) at patient's floor/unit and/or counseling patient: Coding Level of Care Code 88632 Subseq Hosp Care Lvl 2 Diagnoses Acute respiratory failure with hypoxia J96.01 Pneumonia due to COVID-19 virus U07.1; J12.82 Pneumonia J18.9 Diabetes E11.9 Schizoaffective disorder, bipolar type F25.0 DVT prophylaxis Z29.9 Obesity (BMI 30.0-34.9) E66.9
[2020-12-11] MEDS: QUEtiapine FUMARATE 100 MG TABLET PO SCH (20:34)
[2020-12-11] MEDS: clonazePAM 0.5 MG TAB PO SCH (20:34)
[2020-12-11] MEDS: QUEtiapine FUMARATE 200 MG TAB PO SCH (20:35)
[2020-12-11] MEDS: LITHIUM CARBONATE 300 MG TAB PO SCH (20:35)
[2020-12-11] MEDS: rOPINIRole HCL 0.25 MG TABLET PO SCH (20:35)
[2020-12-12] MEDS: PANTOprazole 40 MG TAB PO SCH (08:41)
[2020-12-12] MEDS: guaiFENesin 600 MG TABCR PO SCH (08:41)
[2020-12-12] MEDS: dexAMETHasone 6 MG in SYRINGE 0 ML IV SCH (08:42)
[2020-12-12] MEDS: buPROPion HCl 100 MG TABLET PO SCH (08:42)
[2020-12-12] MEDS: ZINC SULFATE 220 MG CAPSULE PO SCH (08:42)
[2020-12-12] MEDS: INSULIN HUMAN NPH SC SCH (08:42)
[2020-12-12] MEDS: INSULIN GLARGINE SOLOSTAR 100 UNITS/ML 3 ML PEN SC SCH (08:42)
[2020-12-12] MEDS: INSULIN ASPART 100 UNITS/ML 3 ML PEN SC SCH (08:43)
[2020-12-12] MEDS: ENOXAPARIN INJ 60 MG/0.6 ML SYR SQ SCH (08:46)
[2020-12-12] MEDS: POTASSIUM CHLORIDE CRTAB 20 MEQ TABCR PO SCH (08:46)
[2020-12-12] MEDS: POLYETHYLENE (MIRALAX) 17 GM PACK PO SCH (08:46)
--- NOTE | 2020-12-12 10:27 | Discharge Summary ---
Date of Service December 12, 2020 Admission HPI Per Admitting Provider 35yo M w/ hx of bipolar disorder and DM who presents with Covid. He reports that he started feeling bad last (11/26/2020). His initial symptoms were a migraine headache and fevers. His headache lasted until this past Monday, but his fevers have continued. He also reports cough that has persisted throughout this time. He denies any loss of taste or smell which is why he was unaware he had Covid. He has two daughters (15 and 11) whom he has been in contact with, but otherwise has not had any recent contacts other than going grocery shopping, etc. He denies that they have been sick. This morning, he awoke and had worsening coughing and shortness of breath which prompted his coming to the ED. He reports that he feels much better after the fluids and breathing treatment in the ED and no longer feels particularly short of breath. Principal Diagnosis COVID 19 pneumonia with acute hypoxic respiratory failure Discharge Exam Constitutional well developed and + obese; no acute distress Neck trachea midline, no thyromegaly Respiratory no respiratory distress and no labored breathing Auscultation: lungs clear to auscultation bilaterally Cardiovascular RRR, no murmur, no edema Gastrointestinal (Abdomen) normal bowel sounds, soft, nontender, no hepatosplenomegaly Musculoskeletal no cyanosis or clubbing, extremities motor strength 5/5 Skin no rashes, warm and dry Neurologic patellar DTR's 2+ bilat, sensation intact and PERRL, EOMI, accommodation nl, no face palsy, no dysarthria Psychiatric A+Ox3, euthymic affect Lymphatic no cervical or axillary lymphadenopathy Discharge Data Allergies Allergy/AdvReac Type Severity Reaction Status Date / Time No Known Allergies Allergy Verified 12/04/20 10:57 Ordered Studies 12/04/20 13:32 CT angio chest PE protocol Stat Diabetes Follow up Diabetes Follow-up Needed for HgbA1c >9% Hospital Course (1) Acute respiratory failure with hypoxia: improving a lot the past six days, down to room air today from Vapotherm just a few days ago using CPAP at night laying prone as much as he can two step done today, no need for oxygen at rest or on exertion discharge to home today (2) Pneumonia due to COVID-19 virus: First symptoms on 11/26/2020, admitted here on 12/04 Dexamethasone 6 mg IV daily x 10 days total, today is day 9 complete one more day at home, 6mg PO in the morning Remdesivir per protocol, completed Tocilizumab administered on 12/06 due to worsening condition, high CRP (CRP went from 14 to 0.7) - down room air at rest and on exertion, huge improvement since Monday - Doxycycline 100mg BID started 12/06 per pulmonology, completed 5 days - lay prone as much as possible, he is compliant rapidly improving prognosis, plan to send home today follow up with PCP in 1-2 weeks (3) Pneumonia: multifocal pneumonia due to COVID doxycycline added on 12/06, completed completed treatment for COVID (4) Diabetes: Last A1c was 5.3% in 2016. - Hold metformin while inpatient - Sliding scale insulin, glycemic pharmacy oversight due to steroids - A1c 10.5 while here monitor for hypoglycemia, no episodes resume Metformin on discharge offered him insulin on discharge, he refused, wants to follow low carb diet, exercise, weight loss and will follow up with PCP (5) Schizoaffective disorder, bipolar type: Calm and without any present symptoms. No acute needs. EKG in the ED showed QTc of 486. Ensign level at goal on admission. - Continue home lithium, bupropion, quetiapine, and clonazepam - Monitor QTc & avoid any QTc-prolonging medications. (6) DVT prophylaxis: Lovenox 60 mg SQ Q12h -> Intermediate dosing per hospital policy and supported by recent literature CTA chest for PE-> no PE CW viral pneumonia (7) Obesity (BMI 30.0-34.9): Total Time Total Time Spent Total Time Spent (In Minutes): 32 minutes Total Time Includes: Examination of the Patient, Discharge Planning and Medication Reconciliation Discharge Plan Discharge Items Patient Disposition: Home - Self-Care Reason For Visit: COVID PNEUMONIA Discharge Diagnosis: COVID pneumonia, acute hypoxic respiratory failure Condition on Discharge: Good Goals: stay well rested, well nourished, well hydrated no work for another week Activity: Resume your previous activity Driving/Machine Use: No limitations Non-emergency contact: Primary Care Provider Call non-emergency contact if: you have any medication questions and your symptoms worsen Follow-up/Referrals: Omi Noguera, [Primary Care Provider] - (1-2 weeks) Diet: Carb Consistent or DM2 Addtl Attending Provider Instructions: Medications: - DEXAMETHASONE: 6mg daily, only need to take tomorrow as that will be day 10 of treatment COVID 19 pneumonia, acute hypoxic respiratory failure treated with dexamethasone, Remdesivir, Doxycycline received Tocilizumab on 12/06 due to worsening hypoxemia responded well to treatment, down to room air today, did not need oxygen on exertion recommend you stay well rested and well nourished, would not go to work for another week you are safe to be around others, off of isolation Diabetes: follow a low carb diet, continue Metformin only one more day of dexamethasone follow up with Dr. Noguera Pending Studies at Discharge: No Stand-Alone Forms: [facility], Work/School Release (Inpt), Smoking Cessation Medications and DC Order Prescriptions: New dexamethasone 4 mg tablet 6 mg PO DAILY 1 Days Qty: 2 RF: 0 Continued quetiapine 200 mg tablet 200 mg PO HS RF: 0 clonazepam 1 mg tablet 1.5 mg PO HS RF: 0 quetiapine 100 mg tablet 100 mg PO HS RF: 0 bupropion HCl 100 mg tablet 100 mg PO QAM RF: 0 lithium carbonate 600 mg capsule 600 mg PO HS RF: 0 ropinirole 0.5 mg tablet 0.5 mg PO HS RF: 0 metformin 500 mg tablet 500 mg PO PM RF: 0 Discharge Orders: Discharge Order (Routine); Ordered 12/12/20 Ordered By: Manjit Comer/Other Patient Handouts: High Blood Sugar (Hyperglycemia), Hypoglycemia (Low Blood Sugar), Managing Type 2 Diabetes, 5 Steps for Eating Healthier, Managing Diabetes: The A1C Test Admission Data Admit Date/Time: 12/04/20 13:09 Attending Provider: Manjit Comer Admit Provider: Elijah Lee Primary Care Provider: Omi Noguera Other Interventions: Discharge Summary Assessment (RN) Last Done: 12/12/20 09:50 Coding Level of Care Code D/C Day Management >30 mins Diagnoses Acute respiratory failure with hypoxia J96.01 Pneumonia due to COVID-19 virus U07.1; J12.82 Pneumonia J18.9 Diabetes E11.9 Schizoaffective disorder, bipolar type F25.0 DVT prophylaxis Z29.9 Obesity (BMI 30.0-34.9) E66.9
== END 2020-12-12 10:50 | disposition home or self-care (01) | DRG 177 ==
LOC: ED 09:08 → 3E 13:09 → SUATTDRO 13:09 → 3E 16:17 → 2S 12-05 15:27 → 2E 12-09 18:53